=== PATIENT | female | born 1945 | race Caucasian/White ===

== ENCOUNTER 2021-12-27 17:50 | Inpatient (IN) | payer MEDICARE ==
--- NOTE | 2021-12-27 19:43 | ED ---
General Adult HPI - General Chief complaint: Fall Stated complaint: Fall Time Seen by Provider: 12/27/21 19:18 Source: patient Mode of arrival: ambulatory Limitations: no limitations - History of Present Illness Initial comments: Dictation was produced using [employer] dictation software. please excuse any grammatical, word or spelling errors. Chief Complaint: 76-year-old female presents to the emergency Department with weakness fall and 2 episodes of syncope. History of Present Illness: Isela is a 76-year-old obese female with multiple comorbidities presents to the emergency department after couple days of weakness. She had 2 episodes of syncope yesterday. She doesn't remember falling. She states she's been feeling very weak over the last 48 hours. Patient states that she did not feel any palpitations prior to the fall. Jennifer ent is supposed to be on anticoagulation for A. fib however she is noncompliant with recommendations made by her primary care physician because she is afraid of getting a retinal hemorrhage. She denies any chest pain. She has no shortness of breath. She is got some rug burn to her bilateral knees. Patient denies any headache. Denies any numbness distally paresthesias. It has been treated and evaluated for hyperkalemia in the past. The ROS documented in this emergency department record has been reviewed and confirmed by me. Those systems with pertinent positive or negative responses liang ve been documented in the HPI. All other systems are other negative and/or noncontributory. PHYSICAL EXAM: General Impression: Alert and oriented x3, not in acute distress HEENT: Normocephalic atraumatic, extra-ocular movements intact, pupils equal and reactive to light bilaterally, mucous membranes moist. Cardiovascular: Heart regular rate and rhythm Chest: Able to complete full sentences, no retractions, no tachypnea Abdomen: abdomen soft, non-tender, non-distended, no organomegaly Musculoskeletal: Pulses present and equal in all extremities, no peripheral edema Motor: no focal deficits noted Neurological: CN II-XII grossly intact, no focal motor or sensory deficits noted, NIH 0 Skin: Intact with no visualized rashes Psych: Normal affect and mood ED course: 76-year-old female presents to the emergency department for chief complaint of generalized weakness. Vital signs upon arrival are within acceptable limits. After evaluation obtained. CBC unremarkable. Metabolic panel is not yet available. Lactic acidosis 2.2. 4 panel viral PCR is negative. Coag panel is negative. Blood glucose was checked and found to be 33. Given dextrose push. Blood glucose was rechecked 15 minutes after glucose found to be 125. Metabolic panel is not yet available.Computed tomography scan of the head and C- spine shows no acute traumatic injuries. Chest x-ray is nonacute. Metabolic panel shows potassium 5.2. Elevated renal markers though not significantly worrisome. Patient's glucose on metabolic panels 36. Creatinine kinase 2056. Lactic acid is 2.2. Patient be admitted for hyperglycemia. She states that she has been taking her antidiabetic medications without having any significant meals or other day due to forgetfulness. Patient be admitted for blood glucose monitoring. EKG interpretation: Ventricular rate 82, A. fib, QS 89, QTc 434. No WI prolongation, no QTC prolongation, no ST or T-wave changes noted. Note EKG for comparison. Overall, this EKG is unremarkable - Related Data Home Medications Medication Instructions Recorded Confirmed Levothyroxine Sodium [Synthroid] 88 mcg PO DAILY 12/27/21 12/27/21 Losartan [Cozaar] 50 mg PO DAILY 12/27/21 12/27/21 glipiZIDE XL [Glucotrol Xl] 10 mg PO DAILY 12/27/21 12/27/21 Previous Rx's Medication Instructions Recorded levETIRAcetam [Keppra] 500 mg PO Q12HR tab 07/29/15 metFORMIN HCL [Glucophage] 500 mg PO BID-W/MEALS tab 07/29/15 Allergies Allergy/AdvReac Type Severity Reaction Status Date / Time Penicillins Allergy Itching Verified 12/27/21 20:17 Sulfa (Sulfonamide Allergy Unknown Verified 12/27/21 20:17 Antibiotics) codeine AdvReac Unknown Verified 12/27/21 20:17 all antibiotics Allergy Rash/Hives Uncoded 12/27/21 17:58 Review of Systems ROS Statement: Those systems with pertinent positive or pertinent negative responses have been documented in the HPI. ROS Other: All systems not noted in ROS Statement are negative. Past Medical History Past Medical History: Atrial Fibrillation, Diabetes Mellitus, Hyperlipidemia, Hypertension, Sleep Apnea/CPAP/BIPAP History of Any Multi-Drug Resistant Organisms: None Reported Additional Past Surgical History / Comment(s): cataract, eye surgeries, D&C, ankle surgery to repair fracture,retinal Hemorrhage surgeries in both eyes,colonoscopy. Past Anesthesia/Blood Transfusion Reactions: No Reported Reaction, Motion Sickness Past Psychological History: No Psychological Hx Reported, Depression Smoking Status: Never smoker Past Alcohol Use History: Rare Past Drug Use History: None Reported - Past Family History Mother Family Medical History: Vascular Disorder (Mothere at the age of 82 from AAA.) Father Family Medical History: Cancer (Father at the age of 66 from lung cancer.) General Exam Limitations: no limitations Course Vital Signs 12/27/21 12/27/21 12/27/21 17:55 20:13 22:27 Temperature 98.5 F Pulse Rate 60 64 68 Respiratory 20 18 18 Rate Blood Pressure 188/50 135/68 122/67 O2 Sat by Pulse 97 98 98 Oximetry Medical Decision Making - Lab Data Result diagrams: 12/27/21 20:07 12/27/21 21:29 Lab Results 12/27/21 12/27/21 12/27/21 Range/Units 20:07 20:07 20:07 WBC 9.4 (3.8-10.6) k/uL RBC 4.88 (3.80-5.40) m/uL Hgb 13.2 (11.4-16.0) gm/dL Hct 42.0 (34.0-46.0) % MCV 86.1 (80.0-100.0) fL MCH 27.1 (25.0-35.0) pg MCHC 31.5 (31.0-37.0) g/dL RDW 14.2 (11.5-15.5) % Plt Count 255 (150-450) k/uL MPV 8.1 Neutrophils % 76 % Lymphocytes % 14 % Monocytes % 7 % Eosinophils % 1 % Basophils % 1 % Neutrophils # 7.1 (1.3-7.7) k/uL Lymphocytes # 1.3 (1.0-4.8) k/uL Monocytes # 0.7 (0-1.0) k/uL Eosinophils # 0.1 (0-0.7) k/uL Basophils # 0.1 (0-0.2) k/uL PT (9.0-12.0) sec INR (<1.2) APTT (22.0-30.0) sec Sodium (137-145) mmol/L Potassium (3.5-5.1) mmol/L Chloride (98-107) mmol/L Carbon Dioxide (22-30) mmol/L Anion Gap mmol/L BUN (7-17) mg/dL Creatinine (0.52-1.04) mg/dL Est GFR (CKD-EPI)AfAm (>60 ml/min/1.73 sqM) Est GFR (CKD-EPI)NonAf (>60 ml/min/1.73 sqM) Glucose (74-99) mg/dL POC Glucose (mg/dL) (75-99) mg/dL POC Glu [facility] ID Plasma Lactic Acid Kulwant 1.4 (0.7-2.0) mmol/L Calcium (8.4-10.2) mg/dL Magnesium (1.6-2.3) mg/dL Creatine Kinase (30-135) U/L Influenza Type A (PCR) Not Detected (Not Detectd) Influenza Type B (PCR) Not Detected (Not Detectd) RSV (PCR) Not Detected (Not Detectd) SARS-CoV-2 (PCR) Not Detected (Not Detectd) Blood Type Blood Type Confirm Blood Type Recheck Bld Type Recheck Status Antibody Screen Spec Expiration Date 12/27/21 12/27/21 12/27/21 Range/Units 20:35 20:45 20:50 WBC (3.8-10.6) k/uL RBC (3.80-5.40) m/uL Hgb (11.4-16.0) gm/dL Hct (34.0-46.0) % MCV (80.0-100.0) fL MCH (25.0-35.0) pg MCHC (31.0-37.0) g/dL RDW (11.5-15.5) % Plt Count (150-450) k/uL MPV Neutrophils % % Lymphocytes % % Monocytes % % Eosinophils % % Basophils % % Neutrophils # (1.3-7.7) k/uL Lymphocytes # (1.0-4.8) k/uL Monocytes # (0-1.0) k/uL Eosinophils # (0-0.7) k/uL Basophils # (0-0.2) k/uL PT (9.0-12.0) sec INR (<1.2) APTT (22.0-30.0) sec Sodium (137-145) mmol/L Potassium (3.5-5.1) mmol/L Chloride (98-107) mmol/L Carbon Dioxide (22-30) mmol/L Anion Gap mmol/L BUN (7-17) mg/dL Creatinine (0.52-1.04) mg/dL Est GFR (CKD-EPI)AfAm (>60 ml/min/1.73 sqM) Est GFR (CKD-EPI)NonAf (>60 ml/min/1.73 sqM) Glucose (74-99) mg/dL POC Glucose (mg/dL) (75-99) mg/dL POC Glu [facility] ID Plasma Lactic Acid Kulwant 2.2 H* (0.7-2.0) mmol/L Calcium (8.4-10.2) mg/dL Magnesium (1.6-2.3) mg/dL Creatine Kinase (30-135) U/L Influenza Type A (PCR) (Not Detectd) Influenza Type B (PCR) (Not Detectd) RSV (PCR) (Not Detectd) SARS-CoV-2 (PCR) (Not Detectd) Blood Type A Positive Blood Type Confirm Blood Type Recheck No Previous Record Bld Type Recheck Status CABO Indicated Antibody Screen NEGATIVE Spec Expiration Date 12/30/2021 - 234412/27/21 12/27/21 12/27/21 Range/Units 20:58 21:29 21:29 WBC (3.8-10.6) k/uL RBC (3.80-5.40) m/uL Hgb (11.4-16.0) gm/dL Hct (34.0-46.0) % MCV (80.0-100.0) fL MCH (25.0-35.0) pg MCHC (31.0-37.0) g/dL RDW (11.5-15.5) % Plt Count (150-450) k/uL MPV Neutrophils % % Lymphocytes % % Monocytes % % Eosinophils % % Basophils % % Neutrophils # (1.3-7.7) k/uL Lymphocytes # (1.0-4.8) k/uL Monocytes # (0-1.0) k/uL Eosinophils # (0-0.7) k/uL Basophils # (0-0.2) k/uL PT 11.8 (9.0-12.0) sec INR 1.1 (<1.2) APTT 23.8 (22.0-30.0) sec Sodium 137 (137-145) mmol/L Potassium 5.2 H (3.5-5.1) mmol/L Chloride 104 (98-107) mmol/L Carbon Dioxide 25 (22-30) mmol/L Anion Gap 8 mmol/L BUN 34 H (7-17) mg/dL Creatinine 1.36 H (0.52-1.04) mg/dL Est GFR (CKD-EPI)AfAm 44 (>60 ml/min/1.73 sqM) Est GFR (CKD-EPI)NonAf 38 (>60 ml/min/1.73 sqM) Glucose 36 L* (74-99) mg/dL POC Glucose (mg/dL) (75-99) mg/dL POC Glu [facility] ID Plasma Lactic Acid Kulwant (0.7-2.0) mmol/L Calcium 9.5 (8.4-10.2) mg/dL Magnesium 1.6 (1.6-2.3) mg/dL Creatine Kinase 2256 H* (30-135) U/L Influenza Type A (PCR) (Not Detectd) Influenza Type B (PCR) (Not Detectd) RSV (PCR) (Not Detectd) SARS-CoV-2 (PCR) (Not Detectd) Blood Type Blood Type Confirm A Positive Blood Type Recheck Bld Type Recheck Status Antibody Screen Spec Expiration Date 12/27/21 12/27/21 Range/Units 22:12 22:26 WBC (3.8-10.6) k/uL RBC (3.80-5.40) m/uL Hgb (11.4-16.0) gm/dL Hct (34.0-46.0) % MCV (80.0-100.0) fL MCH (25.0-35.0) pg MCHC (31.0-37.0) g/dL RDW (11.5-15.5) % Plt Count (150-450) k/uL MPV Neutrophils % % Lymphocytes % % Monocytes % % Eosinophils % % Basophils % % Neutrophils # (1.3-7.7) k/uL Lymphocytes # (1.0-4.8) k/uL Monocytes # (0-1.0) k/uL Eosinophils # (0-0.7) k/uL Basophils # (0-0.2) k/uL PT (9.0-12.0) sec INR (<1.2) APTT (22.0-30.0) sec Sodium (137-145) mmol/L Potassium (3.5-5.1) mmol/L Chloride (98-107) mmol/L Carbon Dioxide (22-30) mmol/L Anion Gap mmol/L BUN (7-17) mg/dL Creatinine (0.52-1.04) mg/dL Est GFR (CKD-EPI)AfAm (>60 ml/min/1.73 sqM) Est GFR (CKD-EPI)NonAf (>60 ml/min/1.73 sqM) Glucose (74-99) mg/dL POC Glucose (mg/dL) 33 L 125 H (75-99) mg/dL POC Glu [facility] Harsh Lee John Plasma Lactic Acid Kulwant (0.7-2.0) mmol/L Calcium (8.4-10.2) mg/dL Magnesium (1.6-2.3) mg/dL Creatine Kinase (30-135) U/L Influenza Type A (PCR) (Not Detectd) Influenza Type B (PCR) (Not Detectd) RSV (PCR) (Not Detectd) SARS-CoV-2 (PCR) (Not Detectd) Blood Type Blood Type Confirm Blood Type Recheck Bld Type Recheck Status Antibody Screen Spec Expiration Date Disposition Clinical Impression: Hypoglycemia Disposition: ADMITTED IP TO THIS HOSP Condition: Serious Referrals: Danita Yarbrough MD [Primary Care Provider] - 1-2 days Decision Time: 22:38
[2021-12-27 20:42] LABS: Basophils # (A) 0.1 k/uL (0-0.2); Basophils % (A) 1 %; Eosinophils # (A) 0.1 k/uL (0-0.7); Eosinophils % (A) 1 %; HGB 13.2 gm/dL (11.4-16.0); Lymphocytes # (A) 1.3 k/uL (1.0-4.8); Lymphocytes % (A) 14 %; MCH 27.1 pg (25.0-35.0); MCHC 31.5 g/dL (31.0-37.0); MCV 86.1 fL (80.0-100.0); Mean Platelet Volume 8.1; Monocytes # (A) 0.7 k/uL (0-1.0); Monocytes % (A) 7 %; Neutrophils # (A) 7.1 k/uL (1.3-7.7); Neutrophils % (A) 76 %; Platelet Count 255 k/uL (150-450); RBC 4.88 m/uL (3.80-5.40); RDW 14.2 % (11.5-15.5); WBC 9.4 k/uL (3.8-10.6)
--- NOTE | 2021-12-27 21:05 | XR ---
EXAMINATION TYPE: XR chest 1V portable DATE OF EXAM: 12/27/2021 COMPARISON: 07/26/2015 HISTORY: Fall. Weakness TECHNIQUE: Single view FINDINGS: There is no heart failure nor confluent pneumonic infiltrate. Costophrenic angles are clear . Bony thorax is intact. There are no hilar masses. IMPRESSION: No active cardiopulmonary disease. No change.
--- NOTE | 2021-12-27 21:13 | CT ---
EXAMINATION TYPE: CT brain zenia wo con DATE OF EXAM: 12/27/2021 COMPARISON: 07/26/2015 HISTORY: Fall. CT DLP: 1574 mGycm Automated exposure control for dose reduction was used. Images of the brain and cervical spine obtained without contrast. There is cerebral cortical atrophy. There is no mass effect or midline shift. There is no evidence of intracranial hemorrhage. Calvarium is intact. The skull base is intact. There are mucous retention c ysts in the posterior maxillary sinuses. The cervical vertebra have normal alignment. There is degenerative disc space narrowing at C5-6 and C 6-7 with spur formation. No compression fracture. Facet joints are intact. IMPRESSION: Cerebral atrophy. No acute intracranial abnormality. No change. Spondylotic changes in the lower cervical spine. No fracture. No change compared to old exam.
[2021-12-27 22:04] LABS: INR 1.1 (<1.2); Partial Thromboplastin Time 23.8 sec (22.0-30.0); Prothrombin Time 11.8 sec (9.0-12.0)
[2021-12-27 22:05] LABS: Calcium 9.5 mg/dL (8.4-10.2); Magnesium 1.6 mg/dL (1.6-2.3); Potassium 5.2 mmol/L (3.5-5.1)
[2021-12-27] MEDS ORDERED: DEXTROSE 50% SYRINGE 50 ML IVP STA ×2 (22:15→22:23)
[2021-12-27 22:18] LABS: Glucose,Whole Blood 33 mg/dL (75-99)
[2021-12-27 22:28] LABS: Glucose,Whole Blood 125 mg/dL (75-99)
[2021-12-27] MEDS ORDERED: NALOXONE 0.4 MG/ML 1 ML VIAL IV PRN (22:30)
[2021-12-28] MEDS: SODIUM CHLORIDE 0.9% 1,000 ML IV SCH (00:11)
[2021-12-28 00:23] LABS: Appearance,Urine Cloudy (Clear); Bacteria,Urine Rare /hpf; Bilirubin,Urine Negative (Negative); Blood,Urine Large (Negative); Color,Urine Yellow; Glucose,Urine (UA) Trace (Negative); Ketones,Urine Negative (Negative); Leukocyte Esterase,Urine Large (Negative); Mucus,Urine Rare /hpf; Nitrite,Urine Negative (Negative); Protein,Urine 1+ (Negative); RBC,Urine >182 /hpf (0-5); Specific Gravity,Urine 1.026 (1.001-1.035); Squamous Epithelial Cell,Urine 1 /hpf (0-4); Urobilinogen,Urine <2.0 mg/dL (<2.0); WBC,Urine 178 /hpf (0-5)
[2021-12-28 06:50] LABS: Glucose,Whole Blood 37 mg/dL (75-99)
[2021-12-28 07:16] LABS: Glucose,Whole Blood 40 mg/dL (75-99)
[2021-12-28 07:16] LABS: Glucose,Whole Blood 41 mg/dL (75-99)
[2021-12-28 07:27] LABS: Glucose,Whole Blood 88 mg/dL (75-99)
[2021-12-28 09:14] LABS: Glucose,Whole Blood 151 mg/dL (75-99)
[2021-12-28 11:25] LABS: Glucose,Whole Blood 90 mg/dL (75-99)
[2021-12-28] MEDS: levETIRAcetam 500 MG TAB PO SCH ×2 (13:13→21:05)
[2021-12-28] MEDS: ACETAMINOPHEN TAB 500 MG TAB PO PRN (13:13)
--- NOTE | 2021-12-28 14:03 | P.HPIM ---
History of Present Illness H&P Date: 12/28/21 Chief Complaint: Syncope Patient is a 76-year-old female with a known history of diabetes type 2 non insulin-dependent, atrial fibrillation not on any anticoagulation, hypertension, hyperlipidemia, obstructive sleep apnea, history of cataracts, diabetic retinal hemorrhage, history of CVA and seizure disorder presents to ER due to not feeling well and weakness. Patient has been having weakness and near syncopal episodes yesterday. Denied any palpitations or chest pain prior to fall. No recent seizures. Patient has been taking medications regularly. No recent illnesses. No cough or sputum production. No fever no chills. On December 07 patient was found to be having atrial fibrillation and was started on anticoagulation with Eliquis. Patient did take 3 doses and let us stop taking anticoagulation because she is afraid of getting routine hemorrhage again. Patient was not seen by cardiology. Patient is also having leg swelling for the past few months. Denied any numbness or tingling. Chest x-ray showed no acute cardiopulmonary disease. No change. CT head and cervical spine showed cerebral atrophy. No acute intracranial abnormality. No change. Spondylitic changes in the lower cervical spine. No fracture. No change compared to old exam. EKG showed atrial fibrillation with aberrant conduction or ventricular premature complexes. Laboratory data showed WBC 9.4 hemoglobin 13.1 platelets 255 Sodium 137 potassium 5.2 chloride 104 bicarb is 25 BUN 34 and creatinine 1.36 and blood sugar was 36 on admission. Lactic acid 2.2 and CK2 256. Influenza PCR and COVID-19 PCR not detected. Review of Systems Constitutional: Patient denies any fever or chills . Generalized weakness and not feeling well.. Abdomen: Patient denied nausea vomiting and diarrhea and abdominal pain. No palpitations. Patient does have leg swelling. Cardiovascular: Patient denies any chest pain or short of breath no palpitations . Respiratory: patient denied any cough is from production. No shortness of breath Neurologic: Patient denied any numbness or tingling headache. Musculoskeletal: Patient denies any complaints of joint swelling or deformity. Skin: Negative Psychiatric: Negative Endocrine: No heat or cold intolerance. No recent weight gain. Genitourinary: No dysuria or hematuria. All other 14 point ROS negative except the above Past Medical History Past Medical History: Atrial Fibrillation, Diabetes Mellitus, Hyperlipidemia, Hypertension, Sleep Apnea/CPAP/BIPAP History of Any Multi-Drug Resistant Organisms: None Reported Additional Past Surgical History / Comment(s): cataract, eye surgeries, D&C, ankle surgery to repair fracture,retinal Hemorrhage surgeries in both eyes,colonoscopy. Past Anesthesia/Blood Transfusion Reactions: No Reported Reaction, Motion Sickness Past Psychological History: No Psychological Hx Reported, Depression Smoking Status: Never smoker Past Alcohol Use History: Rare Past Drug Use History: None Reported - Past Family History Mother Family Medical History: Vascular Disorder Father Family Medical History: Cancer Medications and Allergies Home Medications Medication Instructions Recorded Confirmed Type levETIRAcetam [Keppra] 500 mg PO Q12HR tab 07/29/15 12/27/21 Rx metFORMIN HCL [Glucophage] 500 mg PO BID-W/MEALS tab 07/29/15 12/27/21 Rx Levothyroxine Sodium [Synthroid] 88 mcg PO DAILY 12/27/21 12/27/21 History Losartan [Cozaar] 50 mg PO DAILY 12/27/21 12/27/21 History glipiZIDE XL [Glucotrol Xl] 10 mg PO DAILY 12/27/21 12/27/21 History Allergies Allergy/AdvReac Type Severity Reaction Status Date / Time Penicillins Allergy Itching Verified 12/27/21 20:17 Sulfa (Sulfonamide Allergy Unknown Verified 12/27/21 20:17 Antibiotics) codeine AdvReac Unknown Verified 12/27/21 20:17 all antibiotics Allergy Rash/Hives Uncoded 12/27/21 17:58 Physical Exam Vitals: Vital Signs Temp Pulse Pulse Resp BP BP Pulse Ox 12/28/21 08:00 97.9 F 56 L 17 123/57 96 12/27/21 23:50 99.2 F 60 16 149/69 98 12/27/21 22:27 68 18 122/67 98 12/27/21 20:13 64 18 135/68 98 12/27/21 17:55 98.5 F 60 20 188/50 97 Intake and Output 12/27/21 12/28/21 12/28/21 22:59 06:59 14:59 Output Total 100 Balance -100 Output: Urine 100 Other: Voiding Method Bedside Commode Weight 113.398 kg 113.398 kg PHYSICAL EXAMINATION: Patient is lying in the bed comfortably, no acute distress, awake alert and oriented. Morbidly obese.. HEENT: Normocephalic. Neck is supple. Pupils reactive. Nostrils clear. Oral cavity is moist. Neck reveals no JVD, carotid bruits, or thyromegaly. CHEST EXAMINATION: Trachea is central. Symmetrical expansion. Lung medeiros clear to auscultation and percussion. CARDIAC: Normal S1, S2 with no gallops. No murmurs , irregularly irregular rhythm. ABDOMEN: Soft. Bowel sounds normal. No organomegaly. No abdominal bruits. Extremities: 2+ pedal edema. No clubbing or cyanosis Neurologically awake, alert, oriented x3 with well-coordinated movements. No focal deficits noted Skin: No rash or skin lesions. Psychiatric: Coperative. Nonsuicidal Musculoskeletal: No joint swelling or deformity. Normal range of motion. Results CBC & Chem 7: 12/27/21 20:07 12/27/21 21:29 Labs: Abnormal Lab Results - Last 24 Hours (Table) 12/27/21 12/27/21 12/27/21 Range/Units 20:35 21:29 22:12 Potassium 5.2 H (3.5-5.1) mmol/L BUN 34 H (7-17) mg/dL Creatinine 1.36 H (0.52-1.04) mg/dL Glucose 36 L* (74-99) mg/dL POC Glucose (mg/dL) 33 L (75-99) mg/dL Plasma Lactic Acid Kulwant 2.2 H* (0.7-2.0) mmol/L Creatine Kinase 2256 H* (30-135) U/L Urine Appearance (Clear) Urine Protein (Negative) Urine Glucose (UA) (Negative) Urine Blood (Negative) Ur Leukocyte Esterase (Negative) Urine RBC (0-5) /hpf Urine WBC (0-5) /hpf Urine WBC Clumps (None) /hpf Urine Bacteria (None) /hpf Urine Mucus (None) /hpf 12/27/21 12/28/21 12/28/21 Range/Units 22:26 00:01 06:48 Potassium (3.5-5.1) mmol/L BUN (7-17) mg/dL Creatinine (0.52-1.04) mg/dL Glucose (74-99) mg/dL POC Glucose (mg/dL) 125 H 37 L (75-99) mg/dL Plasma Lactic Acid Kulwant (0.7-2.0) mmol/L Creatine Kinase (30-135) U/L Urine Appearance Cloudy H (Clear) Urine Protein 1+ H (Negative) Urine Glucose (UA) Trace H (Negative) Urine Blood Large H (Negative) Ur Leukocyte Esterase Large H (Negative) Urine RBC >182 H (0-5) /hpf Urine WBC 178 H (0-5) /hpf Urine WBC Clumps Few H (None) /hpf Urine Bacteria Rare H (None) /hpf Urine Mucus Rare H (None) /hpf 12/28/21 12/28/21 12/28/21 Range/Units 06:50 07:06 09:12 Potassium (3.5-5.1) mmol/L BUN (7-17) mg/dL Creatinine (0.52-1.04) mg/dL Glucose (74-99) mg/dL POC Glucose (mg/dL) 41 L 40 L 151 H (75-99) mg/dL Plasma Lactic Acid Kulwant (0.7-2.0) mmol/L Creatine Kinase (30-135) U/L Urine Appearance (Clear) Urine Protein (Negative) Urine Glucose (UA) (Negative) Urine Blood (Negative) Ur Leukocyte Esterase (Negative) Urine RBC (0-5) /hpf Urine WBC (0-5) /hpf Urine WBC Clumps (None) /hpf Urine Bacteria (None) /hpf Urine Mucus (None) /hpf Microbiology - Last 24 Hours (Table) 12/28/21 00:01 Urine Culture - Preliminary Urine,Voided Thrombosis Risk Factor Assmnt - DVT/VTE Prophylaxis DVT/VTE Prophylaxis: Pharmacologic Prophylaxis ordered - Choose All That Apply Each Factor Represents 1 point: Obesity (BMI >25), Swollen legs (current) Each Risk Factor Represents 3 Points: Age 75 years or older Thrombosis Risk Factor Assessment Total Risk Factor Score: 5 Thrombosis Risk Factor Assessment Level: High Risk Assessment and Plan Assessment: Altered mental status likely due to hypoglycemia. Near syncopal episode acute rhabdomyolysis. CPK 2256 on admission. possible UTI Chronic atrial fibrillation. Rate controlled. Not on any anticoagulation. Patient refused to take medication and is concerned due to previous retinal hemorrhage. Hypertension Diabetes type 2 [id number]. On metformin and glipizide. Hyperlipidemia Obstructive sleep apnea Morbid obesity BMI 45.7 Prior history of seizure disorder Hypothyroidism DVT prophylaxis with heparin subcu Plan: Patient was given D50 and continue with oral intake. Glipizide and metformin is on hold currently. Monitor blood sugar closely. Patient does have chronic atrial fibrillation and was diagnosed recently. Due to bilateral leg swelling, 2D echocardiogram will be ordered and cardiology consult. Continue with home medications including Keppra and levothyroxine. We will check TSH level and proBNP. Continue to follow closely. Time with Patient: Greater than 30
[2021-12-28 17:09] LABS: Glucose,Whole Blood 117 mg/dL (75-99)
[2021-12-28 20:43] LABS: Glucose,Whole Blood 162 mg/dL (75-99)
[2021-12-28] MEDS: HEPARIN SODIUM,PORCINE/PF 5,000 UNIT/0.5 ML SYRINGE SQ SCH (21:04)
[2021-12-28] MEDS ORDERED: DOPamine DRIP 800 MG in DEXTROSE/WATER 1 250ML.BAG IV SCH (23:45)
[2021-12-29] MEDS: SODIUM CHLORIDE 0.9% 1,000 ML IV SCH ×3 (00:24→21:11)
[2021-12-29] MEDS: LEVOTHYROXINE 88 MCG TAB PO SCH (06:01)
[2021-12-29 06:06] LABS: Glucose,Whole Blood 112 mg/dL (75-99)
[2021-12-29] MEDS: HEPARIN SODIUM,PORCINE/PF 5,000 UNIT/0.5 ML SYRINGE SQ SCH ×2 (09:35→21:11)
[2021-12-29] MEDS: levETIRAcetam 500 MG TAB PO SCH ×2 (09:36→21:10)
[2021-12-29] MEDS ORDERED: SODIUM CHLORIDE 0.9% 1,000 ML IV SCH (10:00)
--- NOTE | 2021-12-29 10:00 | ECHOF ---
Referral Reason:leg swelling MEASUREMENTS -------- HEIGHT: 154.9 cm WEIGHT: 108.9 kg BP: RVIDd: 3.3 cm (< 3.3) IVSd: 1.2 cm (0.6 - 1.1) LVIDd: 4.4 cm (3.9 - 5.3) LVPWd: 1.3 cm (0.6 - 1.1) IVSs: 1.8 cm LVIDs: 2.9 cm LVPWs: 2.2 cm LA Diam: 4.1 cm (2.7 - 3.8) LAESV Index (A-L): 34.37 ml/m Ao Diam: 2.8 cm (2.0 - 3.7) AV Cusp: 1.6 cm (1.5 - 2.6) MV EXCURSION: 14.577 mm (> 18.000) MV EF SLOPE: 131 mm/s (70 - 150) EPSS: 1.0 cm RAP: 5.00 mmHg RVSP: 41.24 mmHg FINDINGS -------- Atrial fibrillation. This was a technically adequate study. The left ventricular size is normal. There is mild concentric left ventricular hypertrophy. Overa ll left ventricular systolic function is mildly impaired with, an EF between 45 - 50 %. The right ventricle is mildly enlarged. LA is moderately dilated 34-39 ml/m2 The right atrium is normal in size. Interatrial and interventricular septum intact. Aortic valve is trileaflet and is mildly thickened. The mitral valve leaflets are mildly thickened. Mild mitral annular calcification present. Mild m itral regurgitation is present. Mild tricuspid regurgitation present. There is mild pulmonary hypertension. The right ventricular systolic pressure, as measured by Doppler, is 41.24mmHg. Trace/mild (physiologic) pulmonic regurgitation. The aortic root size is normal. Normal inferior vena cava with normal inspiratory collapse consistent with estimated right atrial pre ssure of 5 mmHg. There is no pericardial effusion. CONCLUSIONS -------- 1. The left ventricular size is normal. 2. There is mild concentric left ventricular hypertrophy. 3. Overall left ventricular systolic function is mildly impaired with, an EF between 45 - 50 %. 4. The right ventricle is mildly enlarged. 5. LA is moderately dilated 34-39 ml/m2 6. Aortic valve is trileaflet and is mildly thickened. 7. The mitral valve leaflets are mildly thickened. 8. Mild mitral annular calcification present. 9. Mild mitral regurgitation is present. 10. Mild tricuspid regurgitation present. 11. There is mild pulmonary hypertension. 12. The right ventricular systolic pressure, as measured by Doppler, is 41.24mmHg. 13. Trace/mild (physiologic) pulmonic regurgitation. 14. There is no pericardial effusion. SATELLITE INSTRUCTION FACILITATOR: Sully Arauz RDCS
[2021-12-29 11:34] LABS: Basophils # (A) 0.1 k/uL (0-0.2); Basophils % (A) 1 %; Eosinophils # (A) 0.2 k/uL (0-0.7); Eosinophils % (A) 2 %; HCT 43.8 % (34.0-46.0); HGB 13.2 gm/dL (11.4-16.0); Hypochromasia Slight; Lymphocytes # (A) 1.2 k/uL (1.0-4.8); Lymphocytes % (A) 14 %; MCH 26.3 pg (25.0-35.0); MCHC 30.1 g/dL (31.0-37.0); MCV 87.6 fL (80.0-100.0); Mean Platelet Volume 7.4; Monocytes # (A) 0.6 k/uL (0-1.0); Monocytes % (A) 7 %; Neutrophils # (A) 6.3 k/uL (1.3-7.7); Neutrophils % (A) 74 %; Platelet Count 252 k/uL (150-450); RDW 14.1 % (11.5-15.5); WBC 8.5 k/uL (3.8-10.6)
[2021-12-29 11:44] LABS: African American GFR (CKD) 49 (>60 ml/min/1.73 sqM); Anion Gap 4 mmol/L; Blood Urea Nitrogen 21 mg/dL (7-17); Calcium 9.2 mg/dL (8.4-10.2); Carbon Dioxide 29 mmol/L (22-30); Chloride 103 mmol/L (98-107); Glucose 152 mg/dL (74-99); Non-African American GFR(CKD) 43 (>60 ml/min/1.73 sqM); Potassium 5.5 mmol/L (3.5-5.1); Sodium 136 mmol/L (137-145)
[2021-12-29 12:05] LABS: Glucose,Whole Blood 138 mg/dL (75-99)
--- NOTE | 2021-12-29 13:31 | P.CRDCN ---
History of Present Illness Consult date: 12/29/21 History of present illness: HISTORY OF PRESENT ILLNESS: This is a 76-year-old female with a past medical history significant for persistent atrial fibrillation, hypothyroidism, retinal hemorrhage, hypertension, diabetes and obstructive sleep apnea. Patient does not follow with a financial services sales representative. We have been asked to see the patient in consultation for atrial fibrillation. Patient examined at the bedside. Patient states she was first diagnosed with atrial fibrillation earlier this year by her PCP. She was referred to a financial services sales representative but she states she never saw a financial services sales representative. She was started on Eliquis but states she began having blood in her urine so she stopped taking it. She also reports a history of retinal hemorrhage show she states that she has not taken her Eliquis. the patient presented to the hospital with a chief complaint of weakness. She states she has been feeling weak for the past few weeks. She states this past weekend she thought she was possibly having a mini stroke and had a couple episodes where she felt disoriented and had some slurred speech. She also reports falling twice at home and believes that she lost consciousness. She denies having any chest pain or pressure. She denies any shortness of breath. Overnight, the patient was found to be bradycardic and having pauses on telemetry. She also had a few runs of V-Tach. She was started on IV Dopamine. According to telemetry review, she began having more frequent runs of VT after her dopamine was initiated. * EKG reveals atrial fibrillation with controlled ventricular rate * Chest xray no active cardiopulmonary disease * Laboratory data: WBC 8.5. Hemoglobin 13.2. Platelet count 252. Sodium 136. Potassium 5.5. BUN 21. Creatinine 1.23. TSH 2.410. * Current home cardiac medications include losartan 50 mg daily * Echocardiogram completed revealing ejection fraction 45-50%, mild MR, mild TR, and mild pulmonary hypertension REVIEW OF SYSTEMS: At the time of my exam: CONSTITUTIONAL: Denies fever or chills. HEENT: Denies blurred vision, vision changes, or eye pain. Denies hemoptysis CARDIOVASCULAR: Denies chest pain. Denies orthopnea. Denies PND. Denies palpitations RESPIRATORY: Denies shortness of breath. GASTROINTESTINAL: Denies abdominal pain. Denies nausea or vomiting. HEMATOLOGIC: Denies bleeding disorders. GENITOURINARY: Denies any blood in urine. SKIN: Denies pruitis. Denies rash. PHYSICAL EXAM: VITAL SIGNS: Reviewed. GENERAL: Well-developed in no acute distress. HEENT: Head is normocephalic. Pupils are equal, round. Sclerae anicteric. Mucous membranes of the mouth are moist. Neck supple. No JVD or thyromegaly LUNGS: Respirations even and unlabored. Lungs essentially clear to auscultation bilaterally. HEART: Irregular rate and rhythm. S1 and S2 heard. ABDOMEN: Soft. Nondistended. Nontender. EXTREMITIES: Normal range of motion. No clubbing or cyanosis. Peripheral pulses intact. No lower extremity edema NEUROLOGIC: Awake and alert. Oriented x 3. ASSESSMENT: Syncope Persistent atrial fibrillation with bradycardia and pauses, declining to take oral anticoagulation Nonsustained ventricular tachycardia History of retinal hemorrhage Hypertension Diabetes Obstructive sleep apnea PLAN: Decrease Dopamine infusion to 1.25mcg/kg/min Continue telemetry monitoring Avoid any AV ifrah blocking agents NPO at midnight Patient to undergo PPM tomorrow with Dr. Nassar Further recommendations pending patient course Nurse practitioner note has been reviewed by physician. Signing provider agrees with the documented findings, assessment, and plan of care. Past Medical History Past Medical History: Atrial Fibrillation, Diabetes Mellitus, Hyperlipidemia, Hypertension, Sleep Apnea/CPAP/BIPAP History of Any Multi-Drug Resistant Organisms: None Reported Additional Past Surgical History / Comment(s): cataract, eye surgeries, D&C, ankle surgery to repair fracture,retinal Hemorrhage surgeries in both ey es,colonoscopy. Past Anesthesia/Blood Transfusion Reactions: No Reported Reaction, Motion Sickness Past Psychological History: No Psychological Hx Reported, Depression Smoking Status: Never smoker Past Alcohol Use History: Rare Past Drug Use History: None Reported - Past Family History Mother Family Medical History: Vascular Disorder Father Family Medical History: Cancer Medications and Allergies Home Medications Medication Instructions Recorded Confirmed Type levETIRAcetam [Keppra] 500 mg PO Q12HR tab 07/29/15 12/27/21 Rx metFORMIN HCL [Glucophage] 500 mg PO BID-W/MEALS tab 07/29/15 12/27/21 Rx Levothyroxine Sodium [Synthroid] 88 mcg PO DAILY 12/27/21 12/27/21 History Losartan [Cozaar] 50 mg PO DAILY 12/27/21 12/27/21 History glipiZIDE XL [Glucotrol Xl] 10 mg PO DAILY 12/27/21 12/27/21 History Allergies Allergy/AdvReac Type Severity Reaction Status Date / Time Penicillins Allergy Itching Verified 12/27/21 20:17 Sulfa (Sulfonamide Allergy Unknown Verified 12/27/21 20:17 Antibiotics) codeine AdvReac Unknown Verified 12/27/21 20:17 all antibiotics Allergy Rash/Hives Uncoded 12/27/21 17:58 Physical Exam Vitals: Vital Signs Temp Pulse Resp BP Pulse Ox 12/29/21 04:00 97.4 F L 77 16 164/85 94 L 12/29/21 01:32 97.0 F L 68 14 152/69 96 12/28/21 23:05 72 16 137/76 97 12/28/21 20:00 98.2 F 65 14 152/85 95 12/28/21 18:15 98.4 F 65 17 163/76 96 12/28/21 14:00 98.6 F 63 16 153/58 98 Intake and Output 12/28/21 12/29/21 12/29/21 22:59 06:59 14:59 Intake Total 240 240 Output Total 350 Balance 240 -110 Intake: IV 240 240 Sodium Chloride 0.9% 1, 240 240 000 ml @ 20 mls/hr IV . Q24H [facility] Rx#:[id number] Output: Urine 350 Other: Voiding Method Bedside Commode Bedside Commode # Voids 1 Weight 106 kg Results 12/29/21 11:01 12/29/21 11:01 Current Medications Generic Name Dose Route Start Last Admin Trade Name Freq PRN Reason Stop Dose Admin Acetaminophen 500 mg 12/28/21 12:39 12/28/21 13:13 Acetaminophen Tab 500 Mg Tab PO 500 mg Q8H PRN Administration Fever and/ or Pain Heparin Sodium (Porcine) 5,000 unit 12/28/21 21:00 12/29/21 09:35 Heparin Sodium,Porcine/Pf 5,000 Unit/0.5 Ml Syringe SQ Not Given Q12HR [facility] Sodium Chloride 1,000 mls @ 20 mls/hr 12/27/21 22:30 12/29/21 00:24 Saline 0.9% IV Not Given .Q24H [facility] Dopamine HCl/Dextrose 800 mg/ 250 mls @ 5.316 mls/hr 12/28/21 23:45 12/29/21 00:43 IV Solution IV 2.5 mcg/kg/min .Q24H [facility] 5.316 mls/hr Administration Protocol 2.5 MCG/KG/MIN Levetiracetam 500 mg 12/28/21 12:15 12/29/21 09:36 Levetiracetam 500 Mg Tab PO 500 mg Q12HR [facility] Administration Levothyroxine Sodium 88 mcg 12/29/21 06:30 12/29/21 06:01 Levothyroxine 88 Mcg Tab PO 88 mcg DAILY@0630 [facility] Administration Naloxone HCl 0.2 mg 12/27/21 22:30 Naloxone 0.4 Mg/Ml 1 Ml Vial IV Q2M PRN Opioid Reversal Intake and Output 12/28/21 12/29/21 12/29/21 22:59 06:59 14:59 Intake Total 240 240 Output Total 350 Balance 240 -110 Intake: IV 240 240 Sodium Chloride 0.9% 1, 240 240 000 ml @ 20 mls/hr IV . Q24H [facility] Rx#:[id number] Output: Urine 350 Other: Voiding Method Bedside Commode Bedside Commode # Voids 1 Weight 106 kg 12/27/21 20:07 12/27/21 21:29
[2021-12-29 16:43] LABS: Glucose,Whole Blood 171 mg/dL (75-99)
[2021-12-29 21:07] LABS: Glucose,Whole Blood 180 mg/dL (75-99)
[2021-12-29] MEDS: DOPamine DRIP 800 MG in DEXTROSE/WATER 1 250ML.BAG IV SCH (21:09)
[2021-12-30] MEDS: LEVOTHYROXINE 88 MCG TAB PO SCH (06:19)
[2021-12-30 06:27] LABS: Glucose,Whole Blood 116 mg/dL (75-99)
[2021-12-30] MEDS ORDERED: ceFAZolin 1 GM in SODIUM CHLORIDE 0.9% IRRIG BTL 250 ML IRRIGATION PRN (07:00)
[2021-12-30] MEDS: HEPARIN SODIUM,PORCINE/PF 5,000 UNIT/0.5 ML SYRINGE SQ SCH ×2 (07:50→23:35)
[2021-12-30 08:03] LABS: Basophils # (A) 0.1 k/uL (0-0.2); Basophils % (A) 1 %; Eosinophils # (A) 0.3 k/uL (0-0.7); Eosinophils % (A) 4 %; HCT 42.6 % (34.0-46.0); HGB 12.5 gm/dL (11.4-16.0); Hypochromasia Moderate; Lymphocytes # (A) 1.1 k/uL (1.0-4.8); Lymphocytes % (A) 16 %; MCH 26.3 pg (25.0-35.0); MCHC 29.4 g/dL (31.0-37.0); MCV 89.5 fL (80.0-100.0); Mean Platelet Volume 7.7; Monocytes # (A) 0.6 k/uL (0-1.0); Monocytes % (A) 8 %; Neutrophils # (A) 4.8 k/uL (1.3-7.7); Neutrophils % (A) 70 %; Platelet Count 223 k/uL (150-450); RBC 4.76 m/uL (3.80-5.40); RDW 14.1 % (11.5-15.5); WBC 6.9 k/uL (3.8-10.6)
[2021-12-30] MEDS: levETIRAcetam 500 MG TAB PO SCH ×2 (08:22→20:56)
[2021-12-30 08:51] LABS: Calcium 8.8 mg/dL (8.4-10.2); Potassium 4.6 mmol/L (3.5-5.1)
[2021-12-30] MEDS ORDERED: IOPAMIDOL-370 50ML BTL INJ ONE (09:35)
[2021-12-30] MEDS ORDERED: fentaNYL (PF) 50 MCG/ML 2 ML AMP ONE (09:38)
[2021-12-30] MEDS ORDERED: SODIUM CHLORIDE 0.9% 1,000 ML IV ONE (09:50)
[2021-12-30] MEDS: MIDAZOLAM 2 MG/2 ML VIAL IV ONE ×3 (09:55→11:35)
[2021-12-30] MEDS ORDERED: LIDOCAINE 1% INJ 10MG/ML (20 ML MDV) SQ ONE ×2 (10:13→10:22)
[2021-12-30] MEDS: fentaNYL (PF) 50 MCG/ML 2 ML AMP IV ONE ×2 (10:41→11:19)
[2021-12-30] MEDS ORDERED: ACETAMINOPHEN TAB 325 MG TAB PO PRN (11:48)
--- NOTE | 2021-12-30 11:57 | P.EPPROC ---
- EP Procedure Note Electrophysiology Procedure Note: Diagnosis Atrial fibrillation with bradycardia with syncope Severe pauses noted on telemetry Not on any rate control medications Treated with IV dopamine temporarily Procedure LB/ biventricular pacemaker implantation for symptomatic bradycardia Details Patient was brought to the EP lab in a fasting state. Written informed consent was obtained prior to the procedure. Conscious sedation provided by anesthesia team IV antibiotics administered. Local anesthesia administered. A 4 cm incision made in the pectoral area. Subfascial pocket made. Venous access obtained Venous sheaths placed. Leads placed in the right heart RV lead position in the RV apex. [employer] medical screw-in lead, 58 cm in length Lead positioned in the low RV septum just above the apex Excellent sensing. Pacing threshold 0.5 V at 0.5 ms Conduction system pacing His bundle mapped Unstable His bundle lead position Left bundle pacing performed. Leads screwed in the left fundal area Excellent threshold. Capture of the left bundle at 2 V at 1 ms with a QRS width of 127 ms, right bundle branch block pattern Higher outputs result in widening of the QRS with intermittent wide right bundle branch block pattern [employer] 3830-lead Biventricular pacemaker device connected to the leads and placed in the subfascial pocket Atrial port capped Patient tolerance the procedure well without acute complications Device programmed to VVI mode at 50 beats a minute with preferential LB pacing Output programmed at 2 V at 1 ms RV pacing 80 ms thereafter
--- NOTE | 2021-12-30 12:01 | P.PCN ---
Preoperative Diagnosis: Patient underwent EP procedure under conscious sedation/moderate sedation, monitoring of the level of consciousness and physiologic parameters including but not limited to vital signs and oxygenation. Patient tolerated the procedure well without any acute complications. Start time: 1012 Stop time: 1147
[2021-12-30 12:22] LABS: Glucose,Whole Blood 120 mg/dL (75-99)
[2021-12-30] MEDS: DOPamine DRIP 800 MG in DEXTROSE/WATER 1 250ML.BAG IV SCH (12:54)
--- NOTE | 2021-12-30 14:38 | XR ---
EXAMINATION TYPE: XR chest 1V portable DATE OF EXAM: 12/30/2021 COMPARISON: Chest x-ray 12/27/2021 HISTORY: Lead placement check TECHNIQUE: Single frontal view of the chest is obtained. FINDINGS: There is been interval placement of a generator in the left pectoral region, there are juancho ds in the right atrium and ventricle, right atrial lead is slightly upturned. Heart remains enlarged. Elevation of the right hemidiaphragm is again noted. Patient is rotated. Remote posttraumatic change s to the right clavicle are stable. No evident pneumothorax or pleural effusion. There are overlying leads. IMPRESSION: No evident complication status post pacemaker placement as described.
[2021-12-30 16:34] LABS: Glucose,Whole Blood 116 mg/dL (75-99)
[2021-12-30 20:13] LABS: Glucose,Whole Blood 163 mg/dL (75-99)
[2021-12-30] MEDS: LOSARTAN 50 MG TAB PO SCH (20:56)
--- NOTE | 2021-12-30 23:13 | P.PN ---
Subjective Progress Note Date: 12/29/21 Patient is a 76-year-old female with a known history of diabetes type 2 non insulin-dependent, atrial fibrillation not on any anticoagulation, hypertension, hyperlipidemia, obstructive sleep apnea, history of cataracts, diabetic retinal hemorrhage, history of CVA and seizure disorder presents to ER due to not feeling well and weakness. Patient has been having weakness and near syncopal episodes yesterday. Denied any palpitations or chest pain prior to fall. No recent seizures. Patient has been taking medications regularly. No recent illnesses. No cough or sputum production. No fever no chills. On December 07 patient was found to be having atrial fibrillation and was started on anticoagulation with Eliquis. Patient did take 3 doses and let us stop taking anticoagulation because she is afraid of getting routine hemorrhage again. Patient was not seen by cardiology. Patient is also having leg swelling for the past few months. Denied any numbness or tingling. Chest x-ray showed no acute cardiopulmonary disease. No change. CT head and cervical spine showed cerebral atrophy. No acute intracranial abnormality. No change. Spondylitic changes in the lower cervical spine. No fracture. No change compared to old exam. EKG showed atrial fibrillation with aberrant conduction or ventricular premature complexes. Laboratory data showed WBC 9.4 hemoglobin 13.1 platelets 255 Sodium 137 potassium 5.2 chloride 104 bicarb is 25 BUN 34 and creatinine 1.36 and blood sugar was 36 on admission. Lactic acid 2.2 and CK2 256. Influenza PCR and COVID-19 PCR not detected. 12/29/2021 Patient is currently awake alert and oriented x3. Patient was admitted to the hospital due to falls. EKG showed atrial fibrillation with controlled ventricular rate and bradycardia with pauses. Cardiology is recommending permanent pacemaker placement. Patient was also started on dobutamine. 2D echocardiogram showed ejection fraction 45 to 50%, mild MR and mild TR and mild pulmonary hypertension. Patient denied any complaints of chest pain or shortness of breath. Blood sugar is controlled. No hypoglycemic episodes. Laboratory showed sodium 136 potassium 5.5 chloride 103 BUN 21 and creatinine 1.23. Patient is being continued on IV hydration with 75 cc/h. Patient does not want to take anticoagulation. Current medications reviewed. Objective - Vital Signs Vital signs: Vital Signs Temp 98.3 F 12/29/21 11:49 Pulse 58 L 12/29/21 14:00 Resp 17 12/29/21 14:00 BP 159/79 12/29/21 11:49 Pulse Ox 98 12/29/21 11:49 Intake & Output 12/28/21 12/29/21 12/29/21 18:59 06:59 18:59 Intake Total 240 240 Output Total 350 Balance 240 -110 Weight 106 kg Intake: IV 240 240 Sodium Chloride 0.9% 1, 240 240 000 ml @ 20 mls/hr IV . Q24H [facility] Rx#:[id number] Output: Urine 350 Other: Voiding Method Bedside Commode Bedside Commode Bedside Commode Diaper # Voids 1 1 - Exam PHYSICAL EXAMINATION: Patient is lying in the bed comfortably, no acute distress, awake alert and oriented. Morbidly obese.. HEENT: Normocephalic. Neck is supple. Pupils reactive. Nostrils clear. Oral cavity is moist. Neck reveals no JVD, carotid bruits, or thyromegaly. CHEST EXAMINATION: Trachea is central. Symmetrical expansion. Lung medeiros clear to auscultation and percussion. CARDIAC: Normal S1, S2 with no gallops. No murmurs , irregularly irregular rhythm. ABDOMEN: Soft. Bowel sounds normal. No organomegaly. No abdominal bruits. Extremities: 2+ pedal edema. No clubbing or cyanosis Neurologically awake, alert, oriented x3 with well-coordinated movements. No focal deficits noted Skin: No rash or skin lesions. Psychiatric: Coperative. Nonsuicidal Musculoskeletal: No joint swelling or deformity. Normal range of motion. - Labs CBC & Chem 7: 12/30/21 07:11 12/30/21 07:11 Labs: Abnormal Lab Results - Last 24 Hours (Table) 12/28/21 12/28/21 12/29/21 Range/Units 17:06 20:41 06:04 MCHC (31.0-37.0) g/dL Sodium (137-145) mmol/L Potassium (3.5-5.1) mmol/L BUN (7-17) mg/dL Creatinine (0.52-1.04) mg/dL Glucose (74-99) mg/dL POC Glucose (mg/dL) 117 H 162 H 112 H (75-99) mg/dL 12/29/21 12/29/21 12/29/21 Range/Units 11:01 11:01 12:04 MCHC 30.1 L (31.0-37.0) g/dL Sodium 136 L (137-145) mmol/L Potassium 5.5 H (3.5-5.1) mmol/L BUN 21 H (7-17) mg/dL Creatinine 1.23 H (0.52-1.04) mg/dL Glucose 152 H (74-99) mg/dL POC Glucose (mg/dL) 138 H (75-99) mg/dL Microbiology - Last 24 Hours (Table) 12/28/21 00:01 Urine Culture - Final Urine,Voided Assessment and Plan Assessment: Altered mental status likely due to hypoglycemia. Acute syncopal episode acute rhabdomyolysis. CPK 2256 on admission. Chronic atrial fibrillation. Patient was found to have bradycardia and sinus pauses. Rate controlled. Not on any anticoagulation. Patient refused to take medication and is concerned due to previous retinal hemorrhage. Hypertension Diabetes type 2 [id number]. On metformin and glipizide. Hyperlipidemia Obstructive sleep apnea Morbid obesity BMI 45.7 Prior history of seizure disorder Hypothyroidism DVT prophylaxis with heparin subcu Plan: Patient will be continued on telemetry monitoring. Cardiology has seen the patient and patient was started on dobutamine due to bradycardia and sinus pauses. Recommending formal pacemaker placement likely tomorrow. Patient was given D50 and continue with oral intake. Glipizide and metformin is on hold currently. Monitor blood sugar closely. Continue with home medications including Keppra and levothyroxine. We will check TSH level and proBNP. Continue to follow closely. Time with Patient: Greater than 30
--- NOTE | 2021-12-30 23:15 | P.PN ---
Subjective Progress Note Date: 12/30/21 Patient is a 76-year-old female with a known history of diabetes type 2 non insulin-dependent, atrial fibrillation not on any anticoagulation, hypertension, hyperlipidemia, obstructive sleep apnea, history of cataracts, diabetic retinal hemorrhage, history of CVA and seizure disorder presents to ER due to not feeling well and weakness. Patient has been having weakness and near syncopal episodes yesterday. Denied any palpitations or chest pain prior to fall. No recent seizures. Patient has been taking medications regularly. No recent illnesses. No cough or sputum production. No fever no chills. On December 07 patient was found to be having atrial fibrillation and was started on anticoagulation with Eliquis. Patient did take 3 doses and let us stop taking anticoagulation because she is afraid of getting routine hemorrhage again. Patient was not seen by cardiology. Patient is also having leg swelling for the past few months. Denied any numbness or tingling. Chest x-ray showed no acute cardiopulmonary disease. No change. CT head and cervical spine showed cerebral atrophy. No acute intracranial abnormality. No change. Spondylitic changes in the lower cervical spine. No fracture. No change compared to old exam. EKG showed atrial fibrillation with aberrant conduction or ventricular premature complexes. Laboratory data showed WBC 9.4 hemoglobin 13.1 platelets 255 Sodium 137 potassium 5.2 chloride 104 bicarb is 25 BUN 34 and creatinine 1.36 and blood sugar was 36 on admission. Lactic acid 2.2 and CK2 256. Influenza PCR and COVID-19 PCR not detected. 12/29/2021 Patient is currently awake alert and oriented x3. Patient was admitted to the hospital due to falls. EKG showed atrial fibrillation with controlled ventricular rate and bradycardia with pauses. Cardiology is recommending permanent pacemaker placement. Patient was also started on dobutamine. 2D echocardiogram showed ejection fraction 45 to 50%, mild MR and mild TR and mild pulmonary hypertension. Patient denied any complaints of chest pain or shortness of breath. Blood sugar is controlled. No hypoglycemic episodes. Laboratory showed sodium 136 potassium 5.5 chloride 103 BUN 21 and creatinine 1.23. Patient is being continued on IV hydration with 75 cc/h. Patient does not want to take anticoagulation. 12/30/2021 Patient is currently resting in bed. Awake alert and oriented x3. Denies any complaints of dizziness or lightheadedness. Patient is status post PPM. Postoperative day 0. No complaints of chest pain. No nausea vomiting abdominal diarrhea. No headache or dizziness or lightheadedness. Tolerating oral diet. 's laboratory showed sodium 137 potassium 4.6 chloride 106 bicarb is 23 BUN 23 and creatinine 1.16. Patient is being continued on IV hydration with normal saline at 75 cc/h. Blood sugar is 128. Current medications reviewed. Objective - Vital Signs Vital signs: Vital Signs Temp 97.9 F 12/30/21 16:22 Pulse 64 12/30/21 16:22 Resp 18 12/30/21 16:22 BP 142/66 12/30/21 16:22 Pulse Ox 99 12/30/21 16:22 Intake & Output 12/30/21 12/30/21 12/31/21 06:59 18:59 06:59 Intake Total 1249.8 290 Balance 1249.8 290 Intake: IV 50 Intake, IV Titration 929.8 Amount DOPamine DRIP 800 mg In 29.8 Dextrose/Water 1 250ml. bag @ 1.25 MCG/KG/MIN 2. 484 mls/hr IV .Q24H [facility] Rx#:[id number] Sodium Chloride 0.9% 1, 900 000 ml @ 75 mls/hr IV . [id number] [facility] Rx#:[id number] Oral 320 240 Other: Voiding Method Bedside Commode Bedside Commode Diaper # Voids 2 1 - Exam PHYSICAL EXAMINATION: Patient is lying in the bed comfortably, no acute distress, awake alert and oriented. Morbidly obese.. HEENT: Normocephalic. Neck is supple. Pupils reactive. Nostrils clear. Oral cavity is moist. Neck reveals no JVD, carotid bruits, or thyromegaly. CHEST EXAMINATION: Trachea is central. Symmetrical expansion. Lung medeiros clear to auscultation and percussion. CARDIAC: Normal S1, S2 with no gallops. No murmurs , irregularly irregular rhythm. ABDOMEN: Soft. Bowel sounds normal. No organomegaly. No abdominal bruits. Extremities: 2+ pedal edema. No clubbing or cyanosis Neurologically awake, alert, oriented x3 with well-coordinated movements. No focal deficits noted Skin: No rash or skin lesions. Psychiatric: Coperative. Nonsuicidal Musculoskeletal: No joint swelling or deformity. Normal range of motion. - Labs CBC & Chem 7: 12/30/21 07:11 12/30/21 07:11 Labs: Abnormal Lab Results - Last 24 Hours (Table) 12/30/21 12/30/21 12/30/21 Range/Units 06:24 07:11 07:11 MCHC 29.4 L (31.0-37.0) g/dL BUN 23 H (7-17) mg/dL Creatinine 1.16 H (0.52-1.04) mg/dL Glucose 128 H (74-99) mg/dL POC Glucose (mg/dL) 116 H (75-99) mg/dL 12/30/21 12/30/21 12/30/21 Range/Units 12:20 16:33 20:12 MCHC (31.0-37.0) g/dL BUN (7-17) mg/dL Creatinine (0.52-1.04) mg/dL Glucose (74-99) mg/dL POC Glucose (mg/dL) 120 H 116 H 163 H (75-99) mg/dL Assessment and Plan Assessment: Altered mental status likely due to hypoglycemia. Acute syncopal episode acute rhabdomyolysis. CPK 2256 on admission. Chronic atrial fibrillation. Patient was found to have bradycardia and sinus pauses. Rate controlled. Not on any anticoagulation. Patient refused to take medication and is concerned due to previous retinal hemorrhage. Hypertension Diabetes type 2 [id number]. On metformin and glipizide. Hyperlipidemia Obstructive sleep apnea Morbid obesity BMI 45.7 Prior history of seizure disorder Hypothyroidism DVT prophylaxis with heparin subcu Plan: Patient will be continued on telemetry monitoring. Cardiology has seen the patient and patient was started on dobutamine due to bradycardia and sinus pauses. Recommending formal pacemaker placement likely tomorrow. Patient was given D50 and continue with oral intake. Glipizide and metformin is on hold currently. Monitor blood sugar closely. Continue with home medications including Keppra and levothyroxine. We will check TSH level and proBNP. Continue to follow closely. Time with Patient: Greater than 30
[2021-12-30] MEDS: ACETAMINOPHEN TAB 500 MG TAB PO PRN (23:36)
[2021-12-31] MEDS: SODIUM CHLORIDE 0.9% 1,000 ML IV SCH ×3 (01:09→23:08)
[2021-12-31 05:06] LABS: Glucose,Whole Blood 120 mg/dL (75-99)
[2021-12-31] MEDS: LEVOTHYROXINE 88 MCG TAB PO SCH (06:05)
[2021-12-31 08:02] LABS: Basophils % (A) 1 %; Eosinophils # (A) 0.3 k/uL (0-0.7); Eosinophils % (A) 4 %; HGB 12.6 gm/dL (11.4-16.0); Hypochromasia Slight; Lymphocytes # (A) 1.1 k/uL (1.0-4.8); Lymphocytes % (A) 16 %; MCH 27.4 pg (25.0-35.0); MCHC 31.4 g/dL (31.0-37.0); MCV 87.1 fL (80.0-100.0); Mean Platelet Volume 6.9; Monocytes # (A) 0.4 k/uL (0-1.0); Monocytes % (A) 6 %; Neutrophils # (A) 4.7 k/uL (1.3-7.7); Neutrophils % (A) 71 %; Platelet Count 236 k/uL (150-450); RDW 14.5 % (11.5-15.5); WBC 6.6 k/uL (3.8-10.6)
[2021-12-31] MEDS: levETIRAcetam 500 MG TAB PO SCH ×2 (08:35→20:18)
[2021-12-31] MEDS: HEPARIN SODIUM,PORCINE/PF 5,000 UNIT/0.5 ML SYRINGE SQ SCH ×2 (08:35→20:19)
[2021-12-31] MEDS: LOSARTAN 50 MG TAB PO SCH (08:35)
[2021-12-31] MEDS: ACETAMINOPHEN TAB 500 MG TAB PO PRN ×2 (08:36→20:18)
[2021-12-31 08:39] LABS: Calcium 8.6 mg/dL (8.4-10.2); Potassium 4.3 mmol/L (3.5-5.1)
[2021-12-31 11:41] LABS: Glucose,Whole Blood 147 mg/dL (75-99)
--- NOTE | 2021-12-31 12:45 | P.GSCN ---
History of Present Illness Consult date: 12/31/21 Reason for Consult: Difference between blood pressure in right arm versus left arm Requesting physician: Nathanael E Sheet History of present illness: This is a 76-year-old female who had presented to the emergency department on 12/27/2021 with complaints of weakness, syncope and falling. She has a past medical history including atrial fibrillation noncompliant with anticoagulation, diabetes mellitus, hyperlipidemia, hypertension, retinal hemorrhage, and sleep apnea. Patient was noted to have persistent atrial fibrillation with bradycardia and declining to take oral anticoagulation related to history of retinal hemorrhage. She has been followed by cardiology closely. She underwent biventricular pacemaker implantation on 12/30/[address] Nassar. Apparently the patient has had consistent elevated blood pressures in the right upper extremity versus left upper extremity. Vascular surgery was consulted for this reason. Patient denies any pain to her upper extremities. Patient has full range of motion of her right upper extremity without any numbness or tingling. She denies any chest pain or shortness of breath. She does state that she did have a CVA about 6 years ago which she fell and broke her collarbone on the right side, however she states that she does exercise regularly without any difficulty. Review of Systems A 14 point review of systems was completed all pertinent positives and negatives as stated in the HPI Past Medical History Past Medical History: Atrial Fibrillation, Diabetes Mellitus, Hyperlipidemia, Hy pertension, Sleep Apnea/CPAP/BIPAP History of Any Multi-Drug Resistant Organisms: None Reported Additional Past Surgical History / Comment(s): cataract, eye surgeries, D&C, ankle surgery to repair fracture,retinal Hemorrhage surgeries in both eyes,co lonoscopy. Past Anesthesia/Blood Transfusion Reactions: No Reported Reaction, Motion Sickness Past Psychological History: No Psychological Hx Reported, Depression Smoking Status: Never smoker Past Alcohol Use History: Rare Past Drug Use History: None Reported - Past Family History Mother Family Medical History: Vascular Disorder Father Family Medical History: Cancer Medications and Allergies Home Medications Medication Instructions Recorded Confirmed Type levETIRAcetam [Keppra] 500 mg PO Q12HR tab 07/29/15 12/27/21 Rx metFORMIN HCL [Glucophage] 500 mg PO BID-W/MEALS tab 07/29/15 12/27/21 Rx Levothyroxine Sodium [Synthroid] 88 mcg PO DAILY 12/27/21 12/27/21 History Losartan [Cozaar] 50 mg PO DAILY 12/27/21 12/27/21 History glipiZIDE XL [Glucotrol Xl] 10 mg PO DAILY 12/27/21 12/27/21 History Allergies Allergy/AdvReac Type Severity Reaction Status Date / Time Penicillins Allergy Itching Verified 12/27/21 20:17 Sulfa (Sulfonamide Allergy Unknown Verified 12/27/21 20:17 Antibiotics) codeine AdvReac Unknown Verified 12/27/21 20:17 all antibiotics Allergy Rash/Hives Uncoded 12/27/21 17:58 Surgical - Exam Vital Signs Temp Pulse Resp BP Pulse Ox 98.5 F 60 20 188/50 97 12/27/21 17:55 12/27/21 17:55 12/27/21 17:55 12/27/21 17:55 12/27/21 17:55 General appearance: The patient is alert, oriented, appears in no acute distress. HET: Head is normocephalic and atraumatic. Pupils are equal and reactive. Neck: Supple without lymphadenopathy. Trachea midline. No audible carotid bruit. Heart: S1 S2. Regular rate and rhythm. Lungs: Clear to auscultation bilaterally. Abdomen: Soft, nontender, nondistended. Extremities: Normal skin color and turgor. No cyanosis, rash, ulceration, clubbing, or edema. Radial and pedal pulses are 2/4 bilaterally. Neurological: No focal deficits. Strength and sensation are grossly intact. Results - Labs 12/31/21 07:36 12/31/21 07:36 Abnormal Lab Results - Last 24 Hours (Table) 12/30/21 12/30/21 12/30/21 Range/Units 07:11 07:11 12:20 MCHC 29.4 L (31.0-37.0) g/dL BUN 23 H (7-17) mg/dL Creatinine 1.16 H (0.52-1.04) mg/dL Glucose 128 H (74-99) mg/dL POC Glucose (mg/dL) 120 H (75-99) mg/dL 12/30/21 12/30/21 12/31/21 Range/Units 16:33 20:12 04:57 MCHC (31.0-37.0) g/dL BUN (7-17) mg/dL Creatinine (0.52-1.04) mg/dL Glucose (74-99) mg/dL POC Glucose (mg/dL) 116 H 163 H 120 H (75-99) mg/dL Diabetes panel 12/30/21 Range/Units 07:11 Sodium 137 (137-145) mmol/L Potassium 4.6 (3.5-5.1) mmol/L Chloride 106 (98-107) mmol/L Carbon Dioxide 23 (22-30) mmol/L BUN 23 H (7-17) mg/dL Creatinine 1.16 H (0.52-1.04) mg/dL Glucose 128 H (74-99) mg/dL Calcium 8.8 (8.4-10.2) mg/dL Calcium panel 12/30/21 Range/Units 07:11 Calcium 8.8 (8.4-10.2) mg/dL Pituitary panel 12/30/21 Range/Units 07:11 Sodium 137 (137-145) mmol/L Potassium 4.6 (3.5-5.1) mmol/L Chloride 106 (98-107) mmol/L Carbon Dioxide 23 (22-30) mmol/L BUN 23 H (7-17) mg/dL Creatinine 1.16 H (0.52-1.04) mg/dL Glucose 128 H (74-99) mg/dL Calcium 8.8 (8.4-10.2) mg/dL Adrenal panel 12/30/21 Range/Units 07:11 Sodium 137 (137-145) mmol/L Potassium 4.6 (3.5-5.1) mmol/L Chloride 106 (98-107) mmol/L Carbon Dioxide 23 (22-30) mmol/L BUN 23 H (7-17) mg/dL Creatinine 1.16 H (0.52-1.04) mg/dL Glucose 128 H (74-99) mg/dL Calcium 8.8 (8.4-10.2) mg/dL - Imaging Comments: Echocardiogram mild concentric left ventricular hypertrophy, EF between 45-50%, right ventricle mildly enlarged, probably moderately dilated, aortic valve is t rileaflet and mildly thickened, mitral valve mildly thickened, mild mild mitral regurgitation present, mild tricuspid regurgitation present, mild pulmonary hypertension, trace mild physiologic pulmonic regurgitation. No pericardial effusion. CT brain C-spine without contrast: Cerebral atrophy. No acute intracranial abnormality. No change. Spondylytic changes in the lower cervical spine. No fracture. No change compared to old exam. Chest x-ray: report reviewed (No evident complication status post pacemaker placement) Assessment and Plan Assessment: 1. Discordant blood pressure readings and upper extremities, right greater than left 2. Atrial fibrillation status post biventricular pacemaker placement 3. Syncope and fall Plan: Please get blood pressures simultaneously from left and right arm and record. Recent Carotid duplex reviewed without any concerns for antegrade flow. Patient is not having any extremity pain. No indication for any vascular surgical intervention. Can follow up outpatient for further workup. Thank you for this consultation, we will continue to follow. The impression and plan of care has been dictated as directed. I performed a history and examination of this patient, discussed the same with the dictator. I agree with the dictator's note ,documented as a scribe. Any additional findings or plans will be noted.
--- NOTE | 2021-12-31 13:37 | P.PN ---
Subjective Progress Note Date: 12/31/21 HISTORY OF PRESENT ILLNESS: This is a 76-year-old female with a past medical history significant for persistent atrial fibrillation, hypothyroidism, retinal hemorrhage, hypertension, diabetes and obstructive sleep apnea. Patient does not follow with a inspector tubes. We have been asked to see the patient in consultation for atrial fibrillation. Patient examined at the bedside. Patient states she was first diagnosed with atrial fibrillation earlier this year by her PCP. She was re ferred to a inspector tubes but she states she never saw a inspector tubes. She was started on Eliquis but states she began having blood in her urine so she stopped taking it. She also reports a history of retinal hemorrhage show she states that she has not taken her Eliquis. the patient presented to the hospital with a chief complaint of weakness. She states she has been feeling weak for the past few weeks. She states this past weekend she thought she was possibly having a mini stroke and had a couple episodes where she felt disoriented and had some slurred speech. She also reports falling twice at home and believes that she lost consciousness. She denies having any chest pain or pressure. She denies any shortness of breath. Overnight, the patient was found to be bradycardic and having pauses on telemetry. She also had a few runs of V-Tach. She was started on IV Dopamine. According to telemetry review, she began having more frequent runs of VT after her dopamine was initiated. * EKG reveals atrial fibrillation with controlled ventricular rate * Chest xray no active cardiopulmonary disease * Laboratory data: WBC 8.5. Hemoglobin 13.2. Platelet count 252. Sodium 136. Potassium 5.5. BUN 21. Creatinine 1.23. TSH 2.410. * Current home cardiac medications include losartan 50 mg daily * Echocardiogram completed revealing ejection fraction 45-50%, mild MR, mild TR, and mild pulmonary hypertension 12/31/2021 Patient is status post biventricular pacemaker implantation secondary to symptomatic bradycardia. Patient's device was interrogated this morning by aleksandra and was found to be functioning properly. Chest x-ray reviewed this morning. Patient denied chest pain or pressure. Denies shortness of breath. Vital signs are stable. PHYSICAL EXAM: VITAL SIGNS: Reviewed. GENERAL: Well-developed in no acute distress. HEENT: Head is normocephalic. Pupils are equal, round. Sclerae anicteric. Mucous membranes of the mouth are moist. Neck supple. No JVD or thyromegaly LUNGS: Respirations even and unlabored. Lungs essentially clear to auscultation bilaterally. HEART: Irregular rate and rhythm. S1 and S2 heard. ABDOMEN: Soft. Nondistended. Nontender. EXTREMITIES: Normal range of motion. No clubbing or cyanosis. Peripheral pulses intact. No lower extremity edema NEUROLOGIC: Awake and alert. Oriented x 3. ASSESSMENT: Syncope Persistent atrial fibrillation with bradycardia and pauses, declining to take oral anticoagulation Nonsustained ventricular tachycardia History of retinal hemorrhage Hypertension Diabetes Obstructive sleep apnea PLAN: Continue current cardiac medications Patient is stable for discharge home today from a cardiac standpoint Further recommendations pending patient course Nurse practitioner note has been reviewed by physician. Signing provider agrees with the documented findings, assessment, and plan of care. Objective - Vital Signs Vital signs: Vital Signs Temp 98.7 F 12/31/21 12:00 Pulse 60 12/31/21 12:00 Resp 17 12/31/21 12:00 BP 140/62 12/31/21 12:00 Pulse Ox 96 12/31/21 12:00 Intake & Output 12/30/21 12/31/21 12/31/21 18:59 06:59 18:59 Intake Total 290 640 360 Output Total 725 Balance 290 -85 360 Intake: IV 50 Oral 240 640 360 Output: Urine 725 Other: Voiding Method Bedside Commode Bedside Commode # Voids 1 1 - Labs CBC & Chem 7: 12/31/21 07:36 12/31/21 07:36 Labs: Abnormal Lab Results - Last 24 Hours (Table) 12/30/21 12/30/21 12/31/21 Range/Units 16:33 20:12 04:57 BUN (7-17) mg/dL Glucose (74-99) mg/dL POC Glucose (mg/dL) 116 H 163 H 120 H (75-99) mg/dL Creatine Kinase (30-135) U/L 12/31/21 12/31/21 Range/Units 07:36 11:39 BUN 20 H (7-17) mg/dL Glucose 142 H (74-99) mg/dL POC Glucose (mg/dL) 147 H (75-99) mg/dL Creatine Kinase 651 H (30-135) U/L
[2021-12-31 16:23] LABS: Glucose,Whole Blood 227 mg/dL (75-99)
[2021-12-31 20:22] LABS: Glucose,Whole Blood 187 mg/dL (75-99)
[2022-01-01 05:49] LABS: Glucose,Whole Blood 133 mg/dL (75-99)
[2022-01-01] MEDS: LEVOTHYROXINE 88 MCG TAB PO SCH (06:17)
[2022-01-01] MEDS ORDERED: metFORMIN 500 MG TAB PO SCH ×2 (07:30)
[2022-01-01 09:14] VITALS: RESP 18; TEMP 98.5
[2022-01-01] MEDS: levETIRAcetam 500 MG TAB PO SCH (09:37)
[2022-01-01] MEDS: HEPARIN SODIUM,PORCINE/PF 5,000 UNIT/0.5 ML SYRINGE SQ SCH (09:37)
[2022-01-01] MEDS: LOSARTAN 50 MG TAB PO SCH (09:37)
[2022-01-01] MEDS ORDERED: METOPROLOL SUCCINATE (ER) 50 MG TAB.ER.24H PO SCH (10:15)
[2022-01-01 10:56] LABS: Glucose,Whole Blood 177 mg/dL (75-99)
[2022-01-01 11:43] VITALS: BP 146/84; PULSE 59
[2022-01-01 12:03] VITALS: BMI 42.7
--- NOTE | 2022-01-01 13:05 | P.PN ---
Subjective Progress Note Date: 01/01/22 HISTORY OF PRESENT ILLNESS: This is a 76-year-old female with a past medical history significant for persistent atrial fibrillation, hypothyroidism, retinal hemorrhage, hypertension, diabetes and obstructive sleep apnea. Patient does not follow with a emergency room tech. We have been asked to see the patient in consultation for atrial fibrillation. Patient examined at the bedside. Patient states she was first diagnosed with atrial fibrillation earlier this year by her PCP. She was re ferred to a emergency room tech but she states she never saw a emergency room tech. She was started on Eliquis but states she began having blood in her urine so she stopped taking it. She also reports a history of retinal hemorrhage show she states that she has not taken her Eliquis. the patient presented to the hospital with a chief complaint of weakness. She states she has been feeling weak for the past few weeks. She states this past weekend she thought she was possibly having a mini stroke and had a couple episodes where she felt disoriented and had some slurred speech. She also reports falling twice at home and believes that she lost consciousness. She denies having any chest pain or pressure. She denies any shortness of breath. Overnight, the patient was found to be bradycardic and having pauses on telemetry. She also had a few runs of V-Tach. She was started on IV Dopamine. According to telemetry review, she began having more frequent runs of VT after her dopamine was initiated. * EKG reveals atrial fibrillation with controlled ventricular rate * Chest xray no active cardiopulmonary disease * Laboratory data: WBC 8.5. Hemoglobin 13.2. Platelet count 252. Sodium 136. Potassium 5.5. BUN 21. Creatinine 1.23. TSH 2.410. * Current home cardiac medications include losartan 50 mg daily * Echocardiogram completed revealing ejection fraction 45-50%, mild MR, mild TR, and mild pulmonary hypertension 12/31/2021 Patient is status post biventricular pacemaker implantation secondary to symptomatic bradycardia. Patient's device was interrogated this morning by aleksandra and was found to be functioning properly. Chest x-ray reviewed this morning. Patient denied chest pain or pressure. Denies shortness of breath. Vital signs are stable. 01/01/2022 Patient examined this morning. Patient denies chest pain or pressure. She denies shortness of breath. Vital signs are stable. PHYSICAL EXAM: VITAL SIGNS: Reviewed. GENERAL: Well-developed in no acute distress. HEENT: Head is normocephalic. Pupils are equal, round. Sclerae anicteric. Mucous membranes of the mouth are moist. Neck supple. No JVD or thyromegaly LUNGS: Respirations even and unlabored. Lungs essentially clear to auscultation bilaterally. HEART: Irregular rate and rhythm. S1 and S2 heard. ABDOMEN: Soft. Nondistended. Nontender. EXTREMITIES: Normal range of motion. No clubbing or cyanosis. Peripheral pulses intact. No lower extremity edema NEUROLOGIC: Awake and alert. Oriented x 3. ASSESSMENT: Syncope Persistent atrial fibrillation with bradycardia and pauses, declining to take oral anticoagulation Nonsustained ventricular tachycardia History of retinal hemorrhage Hypertension Diabetes Obstructive sleep apnea PLAN: Continue current cardiac medications Patient is stable for discharge home today from a cardiac standpoint Further recommendations pending patient course Nurse practitioner note has been reviewed by physician. Signing provider agrees with the documented findings, assessment, and plan of care. Objective - Vital Signs Vital signs: Vital Signs Temp 98.5 F 01/01/22 09:08 Pulse 59 L 01/01/22 11:41 Resp 18 01/01/22 11:41 BP 146/84 01/01/22 11:41 Pulse Ox 98 01/01/22 11:41 Intake & Output 12/31/21 01/01/22 01/01/22 18:59 06:59 18:59 Intake Total 1618 240 Output Total 325 Balance 1618 -85 Weight 106 kg Intake: Oral 1618 240 Output: Urine 325 Other: Voiding Method Bedside Commode Bedside Commode Bedside Commode # Voids 2 2 - Labs CBC & Chem 7: 12/31/21 07:36 12/31/21 07:36 Labs: Abnormal Lab Results - Last 24 Hours (Table) 12/31/21 12/31/21 01/01/22 Range/Units 16:22 20:21 05:48 POC Glucose (mg/dL) 227 H 187 H 133 H (75-99) mg/dL 01/01/22 Range/Units 10:54 POC Glucose (mg/dL) 177 H (75-99) mg/dL
--- NOTE | 2022-01-01 14:03 | P.PN ---
Subjective Progress Note Date: 12/31/21 Patient is a 76-year-old female with a known history of diabetes type 2 non insulin-dependent, atrial fibrillation not on any anticoagulation, hypertension, hyperlipidemia, obstructive sleep apnea, history of cataracts, diabetic retinal hemorrhage, history of CVA and seizure disorder presents to ER due to not feeling well and weakness. Patient has been having weakness and near syncopal episodes yesterday. Denied any palpitations or chest pain prior to fall. No recent seizures. Patient has been taking medications regularly. No recent illnesses. No cough or sputum production. No fever no chills. On December 07 patient was found to be having atrial fibrillation and was started on anticoagulation with Eliquis. Patient did take 3 doses and let us stop taking anticoagulation because she is afraid of getting routine hemorrhage again. Patient was not seen by cardiology. Patient is also having leg swelling for the past few months. Denied any numbness or tingling. Chest x-ray showed no acute cardiopulmonary disease. No change. CT head and cervical spine showed cerebral atrophy. No acute intracranial abnormality. No change. Spondylitic changes in the lower cervical spine. No fracture. No change compared to old exam. EKG showed atrial fibrillation with aberrant conduction or ventricular premature complexes. Laboratory data showed WBC 9.4 hemoglobin 13.1 platelets 255 Sodium 137 potassium 5.2 chloride 104 bicarb is 25 BUN 34 and creatinine 1.36 and blood sugar was 36 on admission. Lactic acid 2.2 and CK2 256. Influenza PCR and COVID-19 PCR not detected. 12/29/2021 Patient is currently awake alert and oriented x3. Patient was admitted to the hospital due to falls. EKG showed atrial fibrillation with controlled ventricular rate and bradycardia with pauses. Cardiology is recommending permanent pacemaker placement. Patient was also started on dobutamine. 2D echocardiogram showed ejection fraction 45 to 50%, mild MR and mild TR and mild pulmonary hypertension. Patient denied any complaints of chest pain or shortness of breath. Blood sugar is controlled. No hypoglycemic episodes. Laboratory showed sodium 136 potassium 5.5 chloride 103 BUN 21 and creatinine 1.23. Patient is being continued on IV hydration with 75 cc/h. Patient does not want to take anticoagulation. 12/30/2021 Patient is currently resting in bed. Awake alert and oriented x3. Denies any complaints of dizziness or lightheadedness. Patient is status post PPM. Postoperative day 0. No complaints of chest pain. No nausea vomiting abdominal diarrhea. No headache or dizziness or lightheadedness. Tolerating oral diet. 's laboratory showed sodium 137 potassium 4.6 chloride 106 bicarb is 23 BUN 23 and creatinine 1.16. Patient is being continued on IV hydration with normal saline at 75 cc/h. Blood sugar is 128. 12/31/2021 Patient is currently resting in the bed. Awake alert and oriented x3. No complaints of chest pain. No shortness of breath. Blood sugars controlled. Patient is status post permanent pacemaker placement postoperative day 1. Denied any dizziness or lightheadedness. Patient is still in atrial fibrillation. Patient has been afebrile. No nausea vomiting abdominal diarrhea. Tolerating oral diet. Lab data showed WBC 6.6 hemoglobin 12.6 and platelets 236 sodium 137 potassium 4.3 chloride 104 BUN 20 and creatinine 1.02 and glucose 142 and CK level is 651. PT OT is following and possible discharge to rehab in the next 24 hours. Current medications reviewed. Objective - Vital Signs Vital signs: Vital Signs Temp 98.7 F 12/31/21 12:00 Pulse 60 12/31/21 12:00 Resp 17 12/31/21 12:00 BP 140/62 12/31/21 12:00 Pulse Ox 96 12/31/21 12:00 Intake & Output 12/30/21 12/31/21 12/31/21 18:59 06:59 18:59 Intake Total 290 640 720 Output Total 725 Balance 290 -85 720 Intake: IV 50 Oral 240 640 720 Output: Urine 725 Other: Voiding Method Bedside Commode Bedside Commode # Voids 1 1 - Exam PHYSICAL EXAMINATION: Patient is lying in the bed comfortably, no acute distress, awake alert and oriented. Morbidly obese.. HEENT: Normocephalic. Neck is supple. Pupils reactive. Nostrils clear. Oral cavity is moist. Neck reveals no JVD, carotid bruits, or thyromegaly. CHEST EXAMINATION: Trachea is central. Symmetrical expansion. Lung medeiros clear to auscultation and percussion. CARDIAC: Normal S1, S2 with no gallops. No murmurs , irregularly irregular rhythm. ABDOMEN: Soft. Bowel sounds normal. No organomegaly. No abdominal bruits. Extremities: 2+ pedal edema. No clubbing or cyanosis Neurologically awake, alert, oriented x3 with well-coordinated movements. No focal deficits noted Skin: No rash or skin lesions. Psychiatric: Coperative. Nonsuicidal Musculoskeletal: No joint swelling or deformity. Normal range of motion. - Labs CBC & Chem 7: 12/31/21 07:36 12/31/21 07:36 Labs: Abnormal Lab Results - Last 24 Hours (Table) 12/30/21 12/30/21 12/31/21 Range/Units 16:33 20:12 04:57 BUN (7-17) mg/dL Glucose (74-99) mg/dL POC Glucose (mg/dL) 116 H 163 H 120 H (75-99) mg/dL Creatine Kinase (30-135) U/L 12/31/21 12/31/21 Range/Units 07:36 11:39 BUN 20 H (7-17) mg/dL Glucose 142 H (74-99) mg/dL POC Glucose (mg/dL) 147 H (75-99) mg/dL Creatine Kinase 651 H (30-135) U/L Assessment and Plan Assessment: Acute syncopal episode acute rhabdomyolysis. CPK 2256 on admission. Persistant atrial fibrillation. Patient was found to have bradycardia and sinus pauses. Rate controlled. Not on any anticoagulation. Patient refused to take medication and is concerned due to previous retinal hemorrhage. Altered mental status likely due to hypoglycemia. Hypertension Diabetes type 2 [id number]. On metformin and glipizide at home. Hyperlipidemia Obstructive sleep apnea Morbid obesity BMI 45.7 Prior history of seizure disorder Hypothyroidism DVT prophylaxis with heparin subcu Plan: Patient will be continued on telemetry monitoring. Cardiology has seen the patient and patient was started on dobutamine due to bradycardia and sinus pauses. s/p pacemaker placement on 12/30. Patient was given D50 and continue with oral intake. Glipizide and metformin is on hold currently. Monitor blood sugar closely. patient will be started back on metformin Continue with home medications including Keppra and levothyroxine. Continue to follow closely. Time with Patient: Greater than 30
--- NOTE | 2022-01-01 14:06 | P.DS ---
Providers Date of admission: 12/27/21 22:30 Expected date of discharge: 01/01/22 Attending physician: Elis Gonzalez Consults: 12/28/21 12:38 Consult Physician Routine Consulting Provider: Carlos Nassar Consult Reason/Comments: atrial fibrillation Do you want consulting provider notified?: Yes 12/31/21 02:21 Consult Physician Routine Consulting Provider: Alyce Asher Consult Reason/Comments: blood pressure higher in right arm vs left arm Do you want consulting provider notified?: Yes, Notify in am Primary care physician: Danita Yarbrough [facility] Course: Discharge diagnosis Acute syncopal episode Persistant atrial fibrillation. Patient was found to have bradycardia and sinus pauses. Rate controlled. Not on any anticoagulation. Patient refused to take medication and is concerned due to previous retinal hemorrhage. Altered mental status likely due to hypoglycemia. acute rhabdomyolysis. CPK 2256 on admission. Hypertension Diabetes type 2 [id number]. On metformin and glipizide at home. Hyperlipidemia Obstructive sleep apnea Morbid obesity BMI 45.7 Prior history of seizure disorder Hypothyroidism DVT prophylaxis with heparin subcu Hospital course Patient is a 76-year-old female with a known history of diabetes type 2 non insulin-dependent, atrial fibrillation not on any anticoagulation, hypertension, hyperlipidemia, obstructive sleep apnea, history of cataracts, diabetic retinal hemorrhage, history of CVA and seizure disorder presents to ER due to not feeling well and weakness. Patient has been having weakness and near syncopal episodes yesterday. Denied any palpitations or chest pain prior to fall. No recent seizures. Patient has been taking medications regularly. No recent illnesses. No cough or sputum production. No fever no chills. On December 07 patient was found to be having atrial fibrillation and was started on anticoagulation with Eliquis. Patient did take 3 doses and let us stop taking anticoagulation because she is afraid of getting routine hemorrhage again. Patient was not seen by cardiology. Patient is also having leg swelling for the past few months. Denied any numbness or tingling. Chest x-ray showed no acute cardiopulmonary disease. No change. CT head and cervical spine showed cerebral atrophy. No acute intracranial abnormality. No change. Spondylitic changes in the lower cervical spine. No fracture. No change compared to old exam. EKG showed atrial fibrillation with aberrant conduction or ventricular premature complexes. Laboratory data showed WBC 9.4 hemoglobin 13.1 platelets 255 Sodium 137 potassium 5.2 chloride 104 bicarb is 25 BUN 34 and creatinine 1.36 and blood sugar was 36 on admission. Lactic acid 2.2 and CK2 256. Influenza PCR and COVID-19 PCR not detected. 12/29/2021 Patient is currently awake alert and oriented x3. Patient was admitted to the hospital due to falls. EKG showed atrial fibrillation with controlled ventricular rate and bradycardia with pauses. Cardiology is recommending permanent pacemaker placement. Patient was also started on dobutamine. 2D echocardiogram showed ejection fraction 45 to 50%, mild MR and mild TR and mild pulmonary hypertension. Patient denied any complaints of chest pain or shortness of breath. Blood sugar is controlled. No hypoglycemic episodes. Laboratory showed sodium 136 potassium 5.5 chloride 103 BUN 21 and creatinine 1 .23. Patient is being continued on IV hydration with 75 cc/h. Patient does not want to take anticoagulation. 12/30/2021 Patient is currently resting in bed. Awake alert and oriented x3. Denies any complaints of dizziness or lightheadedness. Patient is status post PPM. Postoperative day 0. No complaints of chest pain. No nausea vomiting abdominal diarrhea. No headache or dizziness or lightheadedness. Tolerating oral diet. 's laboratory showed sodium 137 potassium 4.6 chloride 106 bicarb is 23 BUN 23 and creatinine 1.16. Patient is being continued on IV hydration with normal saline at 75 cc/h. Blood sugar is 128. 12/31/2021 Patient is currently resting in the bed. Awake alert and oriented x3. No complaints of chest pain. No shortness of breath. Blood sugars controlled. Patient is status post permanent pacemaker placement postoperative day 1. Denied any dizziness or lightheadedness. Patient is still in atrial fibrillation. Patient has been afebrile. No nausea vomiting abdominal diarrhea. Tolerating oral diet. Lab data showed WBC 6.6 hemoglobin 12.6 and platelets 236 sodium 137 potassium 4.3 chloride 104 BUN 20 and creatinine 1.02 and glucose 142 and CK level is 651. PT OT is following and possible discharge to rehab in the next 24 hours. 01/01/2022 Patient is currentlySitting in the chair comfortably. No complaints of chest pain or shortness of breath. Blood sugar is better controlled. Start back on metformin. No nausea vomiting abdominal pain or diarrhea. Tolerating oral diet. Patient was seen by vascular surgery due to discrepancy in blood pressure in both arms. Patient is scheduled for outpatient follow-up and also carotid duplex. Patient will be following with cardiology In 1 week for suture removal and pacemaker evaluation. Patient is being discharged to rehab today. PHYSICAL EXAMINATION: Patient is lying in the bed comfortably, no acute distress, awake alert and oriented.. HEENT: Normocephalic. Neck is supple. Pupils reactive. Nostrils clear. Oral cavity is moist. Neck reveals no JVD, carotid bruits, or thyromegaly. CHEST EXAMINATION: Trachea is central. Symmetrical expansion. Lung medeiros clear to auscultation and percussion. CARDIAC: Normal S1, S2 with no gallops. No murmurs ABDOMEN: Soft. Bowel sounds normal. No organomegaly. No abdominal bruits. Extremities: reveal no edema. No clubbing or cyanosis Neurologically awake, alert, oriented x3 with well-coordinated movements. No focal deficits noted Skin: No rash or skin lesions. Psychiatric: Coperative. Nonsuicidal Musculoskeletal: No joint swelling or deformity. Normal range of motion. Vital Signs 01/01/22 01/01/22 01/01/22 08:00 09:08 11:41 Temperature 98.5 F Pulse Rate [ 57 L 59 L Pulse Oximetery ] Respiratory 18 18 18 Rate Blood Pressure 150/72 146/84 [Left Arm] O2 Sat by Pulse 94 L 98 Oximetry Total time taken greater than 35 minutes including 18 minutes for counseling and coordination of care. Patient Condition at Discharge: Serious Plan - Discharge Summary Discharge Rx Participant: Yes New Discharge Prescriptions: New Metoprolol Succinate (ER) [Toprol XL] 50 mg PO DAILY #30 Continue levETIRAcetam [Keppra] 500 mg PO Q12HR tab metFORMIN HCL [Glucophage] 500 mg PO BID-W/MEALS tab Levothyroxine Sodium [Synthroid] 88 mcg PO DAILY Losartan [Cozaar] 50 mg PO DAILY Discontinued glipiZIDE XL [Glucotrol Xl] 10 mg PO DAILY Discharge Medication List levETIRAcetam [Keppra] 500 mg PO Q12HR tab 07/29/15 [Rx] metFORMIN HCL [Glucophage] 500 mg PO BID-W/MEALS tab 07/29/15 [Rx] Levothyroxine Sodium [Synthroid] 88 mcg PO DAILY 12/27/21 [History] Losartan [Cozaar] 50 mg PO DAILY 12/27/21 [History] Metoprolol Succinate (ER) [Toprol XL] 50 mg PO DAILY #30 01/01/22 [Rx] Follow up Appointment(s)/Referral(s): Carlos Nassar MD [STAFF PHYSICIAN] - 1 Week Danita Yarbrough MD [Primary Care Provider] - 1-2 days Activity/Diet/Wound Care/Special Instructions: PATIENT EDUCATION MATERIAL Instructions following a heart rhythm device implant. 1. Keep dressing DRY for 5 DAYS. You may cover the area with Saran or Cling Wrap, prior to a shower. 2. The dressing will be removed in the Device Clinic at [facility]. Absorbable sutures were used to close the wound. 3. Avoid raising the left arm above the shoulder level. 4 week restriction 4. Avoid arm movements, like backscratching, rubbing the head, or pulling on a cord. 4 weeks restriction 5. Gentle range of motion movements of the shoulder, closest to the incision should be performed to avoid a frozen shoulder. (Pendulum exercises of the shoulder) 6. The opposite arm may be used freely. 7. Avoid driving for 7 days. 8. Avoid activities such as golfing, swimming, weed whacking, lifting more than 10 pounds weight, bowling, gymnastics and weight training/lifting. (6 weeks restriction) 9. Activities such as wood chopping with an axe, pull-ups in the gymnasium, power lifting, arc-welding, being close to home induction cooktops will always be a problem. 10. Arm sling is only a reminder not to raise the arm above the head. You do not need to keep the arm completely immobilized. Your free to move the arm and use it and for normal activities. In case of any problems, please call [facility], Y[facility] Coreas, @ [phone], Attention: Device Clinic Device clinic follow-up in 5 days Follow-up with primary production operations inspector in 1 months Discharge Disposition: TRANSFER TO SNF/ECF
--- NOTE | 2022-01-01 14:22 | P.PN ---
Subjective Progress Note Date: 01/01/22 Principal diagnosis: Discordant blood pressure and upper extremities Patient seen and examined is a follow-up today for consult for discordant blood pressures in her right and left upper extremities. Yesterday we asked that they get a blood pressure in the left and right upper extremity at the same time. Right was reported as 177/79 and left 142/68. Patient underwent a pacemaker placement during this admission. Patient is asymptomatic with any upper extremity pain, no focal symptoms. She is currently denying any chest pain or shortness of breath. Objective - Vital Signs Vital signs: Vital Signs Temp 98.2 F 01/01/22 04:00 Pulse 72 01/01/22 04:00 Resp 20 01/01/22 04:00 BP 137/75 01/01/22 04:00 Pulse Ox 96 01/01/22 04:00 Intake & Output 12/31/21 01/01/22 01/01/22 18:59 06:59 18:59 Intake Total 1618 240 Output Total 325 Balance 1618 -85 Intake: Oral 1618 240 Output: Urine 325 Other: Voiding Method Bedside Commode Bedside Commode # Voids 2 2 - Exam General appearance: The patient is alert, oriented, appears in no acute distress. HET: Head is normocephalic and atraumatic. Pupils are equal and reactive. Neck: Supple without lymphadenopathy. Trachea midline. No audible carotid br uit. Heart: S1 S2. Regular rate and rhythm. Lungs: Clear to auscultation bilaterally. Abdomen: Soft, nontender, nondistended. Extremities: Normal skin color and turgor. No cyanosis, rash, ulceration, clubbing, or edema. Palpable +2 radial pulse bilaterally. Full range of motion of bilateral upper extremities Neurological: No focal deficits. Strength and sensation are grossly intact. - Labs CBC & Chem 7: 12/31/21 07:36 12/31/21 07:36 Labs: Abnormal Lab Results - Last 24 Hours (Table) 12/31/21 12/31/21 12/31/21 Range/Units 11:39 16:22 20:21 POC Glucose (mg/dL) 147 H 227 H 187 H (75-99) mg/dL 01/01/22 Range/Units 05:48 POC Glucose (mg/dL) 133 H (75-99) mg/dL Assessment and Plan Assessment: 1. Discordant blood pressure readings and upper extremities, right greater than left 2. Atrial fibrillation status post biventricular pacemaker placement 3. Syncope and fall Plan: No findings for any acute surgical intervention. Recommend patient to follow-up with vascular surgery and not 2-3 weeks for outpatient follow-up including carotid duplex. Patient is cleared for discharge from vascular surgery. The impression and plan of care has been dictated as directed. I performed a history and examination of this patient, discussed the same with the dictator. I agree with the dictator's note ,documented as a scribe. Any additional findings or plans will be noted.
== END 2022-01-01 13:46 | DRG 243 ==
LOC: EC 17:50 → 4SSUR 22:30 → 3SCARD 12-29 00:22
PROVIDERS: ADMIT Hospitalist; ATTEND Hospitalist
PROC: 02H43JZ Insertion of Pacemaker Lead into Coronary Vein, Percutaneous Approach (ICD-10-PCS; 2021-12-30)
PROC: 4A023FZ Measurement of Cardiac Rhythm, Percutaneous Approach (ICD-10-PCS; 2021-12-30)
PROC: 4A0234Z Measurement of Cardiac Electrical Activity, Percutaneous Approach (ICD-10-PCS; 2021-12-30)
PROC: 02K83ZZ Map Conduction Mechanism, Percutaneous Approach (ICD-10-PCS; 2021-12-30)
PROC: 4B02XTZ Measurement of Cardiac Defibrillator, External Approach (ICD-10-PCS; 2021-12-30)
PROC: 0JH607Z Insertion of Cardiac Resynchronization Pacemaker Pulse Generator into Chest Subcutaneous Tissue and Fascia, Open Approach (ICD-10-PCS; principal; 2021-12-30 09:30)
PROC: 02H Heart and Great Vessels, Insertion (ICD-10-PCS; 2021-12-30 09:30)
DX: I49.5 Sick sinus syndrome (principal); M62.82 Rhabdomyolysis; N39.0 Urinary tract infection, site not specified; Z68.42 Body mass index [BMI] 45.0-49.9, adult; I47.2 Ventricular tachycardia; I48.19 Other persistent atrial fibrillation; E11.649 Type 2 diabetes mellitus with hypoglycemia without coma; E11.65 Type 2 diabetes mellitus with hyperglycemia; R55 Syncope and collapse; I08.1 Rheumatic disorders of both mitral and tricuspid valves; E78.5 Hyperlipidemia, unspecified; G47.33 Obstructive sleep apnea (adult) (pediatric); E66.01 Morbid (severe) obesity due to excess calories; G40.909 Epilepsy, unspecified, not intractable, without status epilepticus; Z20.822 Contact with and (suspected) exposure to COVID-19; E03.9 Hypothyroidism, unspecified; G31.89 Other specified degenerative diseases of nervous system; M47.892 Other spondylosis, cervical region; R47.81 Slurred speech; I10 Essential (primary) hypertension; I27.20 Pulmonary hypertension, unspecified; R29.6 Repeated falls; W19.XXXA Unspecified fall, initial encounter; Y92.009 Unspecified place in unspecified non-institutional (private) residence as the place of occurrence of the external cause; Z79.01 Long term (current) use of anticoagulants; Z79.84 Long term (current) use of oral hypoglycemic drugs; Z79.890 Hormone replacement therapy; Z79.899 Other long term (current) drug therapy; Z80.1 Family history of malignant neoplasm of trachea, bronchus and lung; Z86.73 Personal history of transient ischemic attack (TIA), and cerebral infarction without residual deficits; Z91.14 Patient's other noncompliance with medication regimen; Z88.2 Allergy status to sulfonamides; Z88.0 Allergy status to penicillin; Z88.5 Allergy status to narcotic agent; Z98.49 Cataract extraction status, unspecified eye
CPT/HCPCS: 33208; 33225; 36415; 70450; 71045; 72125; 80048; 81001; 82550; 83605; 83735; 83880; 84443; 85025; 85610; 85730; 86850; 86900; 86901; 87086; 87635; 87636; 93005; 93306; 96374; 99285

== ENCOUNTER 2022-05-24 11:54 | Emergency (ER) | payer MEDICARE ==
--- NOTE | 2022-05-24 12:41 | ED ---
General Adult HPI - General Chief complaint: Weakness Stated complaint: Fall,Syncope Time Seen by Provider: 05/24/22 12:00 Source: patient Mode of arrival: EMS Limitations: no limitations - History of Present Illness Initial comments: Dictation was produced using [employer] dictation software. please excuse any grammatical, word or spelling errors. Chief Complaint: 76-year-old male presents to the emergency department for generalized weakness History of Present Illness: 76-year-old female multiple comorbidities. She presents to the emergency department after she fell today. Patient states she's been feeling weak since yesterday. Denies any syncopal event. Patient states that she's been feeling generally weak since yesterday. Denies any fever or constitutional symptoms. Patient denies any pain complaints. Denies any short ness of breath. No nausea vomiting. Patient states that she just feels so weak she is unable to perform her daily exercise. She called EMS who ultimately convinced patient that she should come to the emergency department to be evaluated. The ROS documented in this emergency department record has been reviewed and confirmed by me. Those systems with pertinent positive or negative responses ilang ve been documented in the HPI. All other systems are other negative and/or noncontributory. PHYSICAL EXAM: General Impression: Alert and oriented x3, not in acute distress HEENT: Normocephalic atraumatic, extra-ocular movements intact, pupils equal and reactive to light bilaterally, mucous membranes moist. Cardiovascular: Heart regular rate and rhythm Chest: Able to complete full sentences, no retractions, no tachypnea Abdomen: abdomen soft, non-tender, non-distended, no organomegaly Musculoskeletal: Pulses present and equal in all extremities, no peripheral edema Motor: no focal deficits noted Neurological: CN II-XII grossly intact, no focal motor or sensory deficits noted Skin: Intact with no visualized rashes Psych: Normal affect and mood ED course: 76-year-old female presents to the emergency department for has weakness since yesterday. She did suffer a fall. Vital signs upon arrival are within acceptable limits. Patient's well-appearing. Patient's history present illness does not suggest syncopal event however she does have cardiac history. Chart review shows that back in December of this year she had a pacemaker placed for A. fib associated with bradycardia. Blood work was obtained. CBC Paul. Coag panel is negative. Metabolic panel shows hyperglycemia 41. Rest metabolic panel within acceptable limits. 4 panel viral PCR is negative for influenza, RSV or coronavirus. Patient given oral intake Patient reevaluated at bedside at 3:00 PM. Medications were reviewed with the patient. She takes a sulfonylurea and metformin. Patient states she was not able to eat after taking her aunt had diabetes medications. It was strongly recommended the patient to be admitted for glucose monitoring given that there is no clear source of hypoglycemia. It's likely her hypoglycemia secondary to her diabetes medications with poor oral intake. Patient does not want to be admitted to the hospital for glucose monitoring. Urinalysis is positive for urinary tract infection. Patient monitored further patient reevaluated again at 4:00 and found to be in stable medical condition. Her sugars are stabilized. Patient given IV antibiotics for urinary tract infection. Patient stable for discharge. Patient given return precautions. She is told to stop her anti-diabetes medications for the time being. She is told to schedule an appointment with her primary care doctor as soon as possible for further care. She is strongly advised to use her glucometer at home. EKG interpretation: Ventricular rate 52, paced rhythm, QRS 149, QS 45. No GA prolongation, no QTC prolongation, no ST or T-wave changes noted. - Related Data Home Medications Medication Instructions Recorded Confirmed Levothyroxine Sodium [Synthroid] 88 mcg PO DAILY@79912/27/21 05/24/22 Losartan [Cozaar] 50 mg PO DAILY@79912/27/21 05/24/22 Cholecalciferol [Vitamin D3 (125 125 mcg PO DAILY@79905/24/22 05/24/22 Mcg = 5000 Iu)] Cyanocobalamin/Cobamamide [Vitamin 1 tab SUBLINGUAL DAILY@79905/24/22 05/24/22 B-12 5,000 Mcg Tab Sl] Grape Seed Oil 1 dose PO HS@199905/24/22 05/24/22 Metoprolol Succinate (ER) [Toprol 50 mg PO BID@05/24/22 05/24/22 XL] Rosuvastatin [Crestor] 10 mg PO HS@199905/24/22 05/24/22 Rutin/Quercetin/Bioflav/Bilber 1 cap PO DAILY@79905/24/22 05/24/22 [Bilberry Extract] glipiZIDE XL [Glucotrol Xl] 10 mg PO DAILY@0800 05/24/22 05/24/22 levETIRAcetam [Keppra] 500 mg PO BID@08,199905/24/22 05/24/22 metFORMIN HCL [Glucophage] 500 mg PO BID@08,199905/24/22 05/24/22 Previous Rx's Medication Instructions Recorded Cefpodoxime Proxetil [Vantin] 200 mg PO Q12HR 10 Days #20 tab 05/24/22 Allergies Allergy/AdvReac Type Severity Reaction Status Date / Time Penicillins Allergy Itching Verified 05/24/22 14:35 Sulfa (Sulfonamide Allergy Unknown Verified 05/24/22 14:35 Antibiotics) codeine AdvReac Unknown Verified 05/24/22 14:35 all antibiotics Allergy Rash/Hives Uncoded 05/24/22 12:05 Review of Systems ROS Statement: Those systems with pertinent positive or pertinent negative responses have been documented in the HPI. ROS Other: All systems not noted in ROS Statement are negative. Past Medical History Past Medical History: Atrial Fibrillation, Diabetes Mellitus, Hyperlipidemia, Hypertension, Sleep Apnea/CPAP/BIPAP History of Any Multi-Drug Resistant Organisms: None Reported Additional Past Surgical History / Comment(s): cataract, eye surgeries, D&C, ankle surgery to repair fracture,retinal Hemorrhage surgeries in both eyes,colonoscopy. Past Anesthesia/Blood Transfusion Reactions: No Reported Reaction, Motion Sickness Past Psychological History: No Psychological Hx Reported, Depression Smoking Status: Never smoker Past Alcohol Use History: Rare Past Drug Use History: None Reported - Past Family History Mother Family Medical History: Vascular Disorder Father Family Medical History: Cancer General Exam Limitations: no limitations Course Vital Signs 05/24/22 05/24/22 12:02 14:06 Temperature 98.5 F Pulse Rate 56 L 64 Respiratory 20 18 Rate Blood Pressure 156/105 130/90 O2 Sat by Pulse 97 99 Oximetry Medical Decision Making - Lab Data Result diagrams: 05/24/22 12:56 05/24/22 12:56 Lab Results 05/24/22 05/24/22 05/24/22 Range/Units 12:56 12:56 12:56 WBC 9.3 (3.8-10.6) k/uL RBC 5.04 (3.80-5.40) m/uL Hgb 13.6 (11.4-16.0) gm/dL Hct 43.8 (34.0-46.0) % MCV 86.9 (80.0-100.0) fL MCH 27.1 (25.0-35.0) pg MCHC 31.2 (31.0-37.0) g/dL RDW 13.9 (11.5-15.5) % Plt Count 204 (150-450) k/uL MPV 7.9 Neutrophils % 83 % Lymphocytes % 9 % Monocytes % 6 % Eosinophils % 1 % Basophils % 1 % Neutrophils # 7.7 (1.3-7.7) k/uL Lymphocytes # 0.8 L (1.0-4.8) k/uL Monocytes # 0.6 (0-1.0) k/uL Eosinophils # 0.1 (0-0.7) k/uL Basophils # 0.1 (0-0.2) k/uL PT 11.6 (9.0-12.0) sec INR 1.1 (<1.2) APTT 22.6 (22.0-30.0) sec Sodium 137 (137-145) mmol/L Potassium 4.2 (3.5-5.1) mmol/L Chloride 100 (98-107) mmol/L Carbon Dioxide 23 (22-30) mmol/L Anion Gap 14 mmol/L BUN 22 H (7-17) mg/dL Creatinine 1.08 H (0.52-1.04) mg/dL Est GFR (CKD-EPI)AfAm 58 (>60 ml/min/1.73 sqM) Est GFR (CKD-EPI)NonAf 50 (>60 ml/min/1.73 sqM) Glucose 41 L* (74-99) mg/dL POC Glucose (mg/dL) (70-110) mg/dL POC Glu Bulb Grader ID Calcium 9.4 (8.4-10.2) mg/dL Magnesium 1.3 L (1.6-2.3) mg/dL Total Bilirubin 1.0 (0.2-1.3) mg/dL AST 25 (14-36) U/L ALT 11 (4-34) U/L Alkaline Phosphatase 79 (38-126) U/L Troponin I (0.000-0.034) ng/mL Total Protein 6.8 (6.3-8.2) g/dL Albumin 4.2 (3.5-5.0) g/dL TSH 3.670 (0.465-4.680) mIU/L Urine Color Urine Appearance (Clear) Urine pH (5.0-8.0) Ur Specific [place] (1.001-1.035) Urine Protein (Negative) Urine Glucose (UA) (Negative) Urine Ketones (Negative) Urine Blood (Negative) Urine Nitrite (Negative) Urine Bilirubin (Negative) Urine Urobilinogen (<2.0) mg/dL Ur Leukocyte Esterase (Negative) Urine RBC (0-5) /hpf Urine WBC (0-5) /hpf Ur Squamous Epith Cells (0-4) /hpf Influenza Type A (PCR) (Not Detectd) Influenza Type B (PCR) (Not Detectd) RSV (PCR) (Not Detectd) SARS-CoV-2 (PCR) (Not Detectd) 05/24/22 05/24/22 05/24/22 Range/Units 12:56 12:56 13:45 WBC (3.8-10.6) k/uL RBC (3.80-5.40) m/uL Hgb (11.4-16.0) gm/dL Hct (34.0-46.0) % MCV (80.0-100.0) fL MCH (25.0-35.0) pg MCHC (31.0-37.0) g/dL RDW (11.5-15.5) % Plt Count (150-450) k/uL MPV Neutrophils % % Lymphocytes % % Monocytes % % Eosinophils % % Basophils % % Neutrophils # (1.3-7.7) k/uL Lymphocytes # (1.0-4.8) k/uL Monocytes # (0-1.0) k/uL Eosinophils # (0-0.7) k/uL Basophils # (0-0.2) k/uL PT (9.0-12.0) sec INR (<1.2) APTT (22.0-30.0) sec Sodium (137-145) mmol/L Potassium (3.5-5.1) mmol/L Chloride (98-107) mmol/L Carbon Dioxide (22-30) mmol/L Anion Gap mmol/L BUN (7-17) mg/dL Creatinine (0.52-1.04) mg/dL Est GFR (CKD-EPI)AfAm (>60 ml/min/1.73 sqM) Est GFR (CKD-EPI)NonAf (>60 ml/min/1.73 sqM) Glucose (74-99) mg/dL POC Glucose (mg/dL) 41 L (70-110) mg/dL POC Glu Bulb Grader ID Jason Clemons Calcium (8.4-10.2) mg/dL Magnesium (1.6-2.3) mg/dL Total Bilirubin (0.2-1.3) mg/dL AST (14-36) U/L ALT (4-34) U/L Alkaline Phosphatase (38-126) U/L Troponin I 0.019 (0.000-0.034) ng/mL Total Protein (6.3-8.2) g/dL Albumin (3.5-5.0) g/dL TSH (0.465-4.680) mIU/L Urine Color Urine Appearance (Clear) Urine pH (5.0-8.0) Ur Specific [place] (1.001-1.035) Urine Protein (Negative) Urine Glucose (UA) (Negative) Urine Ketones (Negative) Urine Blood (Negative) Urine Nitrite (Negative) Urine Bilirubin (Negative) Urine Urobilinogen (<2.0) mg/dL Ur Leukocyte Esterase (Negative) Urine RBC (0-5) /hpf Urine WBC (0-5) /hpf Ur Squamous Epith Cells (0-4) /hpf Influenza Type A (PCR) Not Detected (Not Detectd) Influenza Type B (PCR) Not Detected (Not Detectd) RSV (PCR) Not Detected (Not Detectd) SARS-CoV-2 (PCR) Not Detected (Not Detectd) 05/24/22 05/24/22 05/24/22 Range/Units 14:05 15:07 15:08 WBC (3.8-10.6) k/uL RBC (3.80-5.40) m/uL Hgb (11.4-16.0) gm/dL Hct (34.0-46.0) % MCV (80.0-100.0) fL MCH (25.0-35.0) pg MCHC (31.0-37.0) g/dL RDW (11.5-15.5) % Plt Count (150-450) k/uL MPV Neutrophils % % Lymphocytes % % Monocytes % % Eosinophils % % Basophils % % Neutrophils # (1.3-7.7) k/uL Lymphocytes # (1.0-4.8) k/uL Monocytes # (0-1.0) k/uL Eosinophils # (0-0.7) k/uL Basophils # (0-0.2) k/uL PT (9.0-12.0) sec INR (<1.2) APTT (22.0-30.0) sec Sodium (137-145) mmol/L Potassium (3.5-5.1) mmol/L Chloride (98-107) mmol/L Carbon Dioxide (22-30) mmol/L Anion Gap mmol/L BUN (7-17) mg/dL Creatinine (0.52-1.04) mg/dL Est GFR (CKD-EPI)AfAm (>60 ml/min/1.73 sqM) Est GFR (CKD-EPI)NonAf (>60 ml/min/1.73 sqM) Glucose (74-99) mg/dL POC Glucose (mg/dL) 118 H 130 H (70-110) mg/dL POC Glu Bulb Grader JOSE Kaci Jason Gorman Lizzette Calcium (8.4-10.2) mg/dL Magnesium (1.6-2.3) mg/dL Total Bilirubin (0.2-1.3) mg/dL AST (14-36) U/L ALT (4-34) U/L Alkaline Phosphatase (38-126) U/L Troponin I (0.000-0.034) ng/mL Total Protein (6.3-8.2) g/dL Albumin (3.5-5.0) g/dL TSH (0.465-4.680) mIU/L Urine Color Light Yellow Urine Appearance Clear (Clear) Urine pH 5.5 (5.0-8.0) Ur Specific [place] 1.011 (1.001-1.035) Urine Protein 1+ H (Negative) Urine Glucose (UA) 1+ H (Negative) Urine Ketones Negative (Negative) Urine Blood Small H (Negative) Urine Nitrite Negative (Negative) Urine Bilirubin Negative (Negative) Urine Urobilinogen <2.0 (<2.0) mg/dL Ur Leukocyte Esterase Large H (Negative) Urine RBC 20 H (0-5) /hpf Urine WBC 69 H (0-5) /hpf Ur Squamous Epith Cells 1 (0-4) /hpf Influenza Type A (PCR) (Not Detectd) Influenza Type B (PCR) (Not Detectd) RSV (PCR) (Not Detectd) SARS-CoV-2 (PCR) (Not Detectd) Disposition Clinical Impression: Hypoglycemia, UTI (urinary tract infection) Disposition: HOME SELF-CARE Condition: Fair Instructions (If sedation given, give patient instructions): Urinary Tract Infection in Women (ED), Hypoglycemia in a Person with Diabetes (ED) Prescriptions: Cefpodoxime Proxetil [Vantin] 200 mg PO Q12HR 10 Days #20 tab Is patient prescribed a controlled substance at d/c from ED?: No Referrals: Danita Yarbrough MD [STAFF PHYSICIAN] - 1-2 days Time of Disposition: 16:07
[2022-05-24 13:10] LABS: Basophils # (A) 0.1 k/uL (0-0.2); Basophils % (A) 1 %; Eosinophils # (A) 0.1 k/uL (0-0.7); Eosinophils % (A) 1 %; HCT 43.8 % (34.0-46.0); HGB 13.6 gm/dL (11.4-16.0); Lymphocytes # (A) 0.8 k/uL (1.0-4.8); Lymphocytes % (A) 9 %; MCH 27.1 pg (25.0-35.0); MCHC 31.2 g/dL (31.0-37.0); MCV 86.9 fL (80.0-100.0); Mean Platelet Volume 7.9; Monocytes # (A) 0.6 k/uL (0-1.0); Monocytes % (A) 6 %; Neutrophils # (A) 7.7 k/uL (1.3-7.7); Neutrophils % (A) 83 %; Platelet Count 204 k/uL (150-450); RBC 5.04 m/uL (3.80-5.40); RDW 13.9 % (11.5-15.5); WBC 9.3 k/uL (3.8-10.6)
--- NOTE | 2022-05-24 13:17 | XR ---
EXAMINATION TYPE: XR chest 1V portable DATE OF EXAM: 05/24/2022 COMPARISON: NONE HISTORY: Weakness TECHNIQUE: Single frontal view of the chest is obtained. FINDINGS: There is no focal air space opacity, pleural effusion, or pneumothorax seen. The cardiac silhouette size is within normal limits. The osseous structures are intact. Cardiac device leads no gifty. The right clavicle. Elevated right hemidiaphragm. No overt failure. IMPRESSION: No acute process.
[2022-05-24 13:21] LABS: Albumin 4.2 g/dL (3.5-5.0); Calcium 9.4 mg/dL (8.4-10.2); Magnesium 1.3 mg/dL (1.6-2.3); Potassium 4.2 mmol/L (3.5-5.1); Total Protein 6.8 g/dL (6.3-8.2)
[2022-05-24 13:22] LABS: INR 1.1 (<1.2); Partial Thromboplastin Time 22.6 sec (22.0-30.0); Prothrombin Time 11.6 sec (9.0-12.0)
--- NOTE | 2022-05-24 13:29 | CT ---
EXAMINATION TYPE: CT brain cspine wo con CT DLP: 1707.6 mGycm, Automated exposure control for dose reduction was used. DATE OF EXAM: 05/24/2022 1:20 PM COMPARISON: 12/27/2021. CLINICAL INDICATION:Female, 76 years old with history of fall; Fall TECHNIQUE: Brain: Multiple axial CT images of the brain were obtained without IV contrast. Cspine: Axial CT images from the skull base to the inferior aspect of T2 we obtained without intraven ous contrast. Coronal and sagittal reformatted images were also reviewed. FINDINGS: Brain: Extra-axial spaces: No abnormal extra-axial fluid collections. Ventricular system: Dilatation in proportion to cerebral atrophy. Cerebral parenchyma: Cerebral atrophy. No acute intraparenchymal hemorrhage or mass effect. The rajan -white junction is well differentiated. Scattered hypoattenuating areas are seen within the white mat ter. Cerebellum: Unremarkable. Mass effect: No evidence of midline shift. Intracranial vasculature: unremarkable Soft tissues: Normal. Calvarium/osseous structures: No depressed skull fracture. Paranasal sinuses and mastoid air cells: Mild scattered mucosal thickening and or secretions. Visualized orbits: Bilateral aphakia Cervical spine: Fracture: None. Osseous structures: Multilevel degenerative disc disease changes with endplate spurring and disc oste ophyte complex's. Vertebral alignment: Within normal limits. Spinal canal/Neural Foramina: Disc osteophyte complexes at C5-C6 and C6-C7 with at least mild spinal canal stenosis. No evidence for significant neural foraminal stenosis. Neck soft tissues: Prevertebral soft tissues are within normal limits. Other: The airway is patent. The lung apices are clear. Cardiac conduction leads are partially visual ized. Atherosclerosis of the carotid bifurcations. IMPRESSION: 1. No acute intracranial process. 2. Nonspecific white matter changes, likely secondary to chronic small vessel ischemic disease. 3. No evidence of cervical spine fracture. 4. Mild multilevel degenerative disc disease.
[2022-05-24 13:46] LABS: Glucose,Whole Blood 41 mg/dL (70-110)
[2022-05-24 14:07] LABS: Glucose,Whole Blood 118 mg/dL (70-110)
[2022-05-24 15:11] LABS: Glucose,Whole Blood 130 mg/dL (70-110)
[2022-05-24 15:38] LABS: Appearance,Urine Clear (Clear); Bilirubin,Urine Negative (Negative); Blood,Urine Small (Negative); Color,Urine Light Yellow; Glucose,Urine (UA) 1+ (Negative); Ketones,Urine Negative (Negative); Leukocyte Esterase,Urine Large (Negative); Nitrite,Urine Negative (Negative); PH, Urine 5.5 (5.0-8.0); Protein,Urine 1+ (Negative); RBC,Urine 20 /hpf (0-5); Specific Gravity,Urine 1.011 (1.001-1.035); Squamous Epithelial Cell,Urine 1 /hpf (0-4); Urobilinogen,Urine <2.0 mg/dL (<2.0); WBC,Urine 69 /hpf (0-5)
[2022-05-24] MEDS ORDERED: cefTRIAXone IN SWFI 1,000 MG/10 ML SYRINGE IVP STA (15:42)
[2022-05-24 16:22] VITALS: BP 166/74; PULSE 60; RESP 20; TEMP 98.3
== END 2022-05-24 16:39 | disposition home or self-care (01) ==
LOC: EC 11:54
DX: E16.2 Hypoglycemia, unspecified (principal); N39.0 Urinary tract infection, site not specified; I48.91 Unspecified atrial fibrillation; E11.9 Type 2 diabetes mellitus without complications; E78.5 Hyperlipidemia, unspecified; I10 Essential (primary) hypertension; Z88.0 Allergy status to penicillin; Z88.2 Allergy status to sulfonamides; Z88.5 Allergy status to narcotic agent; Z88.1 Allergy status to other antibiotic agents; Z79.890 Hormone replacement therapy; Z79.84 Long term (current) use of oral hypoglycemic drugs; Z79.899 Other long term (current) drug therapy; Z20.822 Contact with and (suspected) exposure to COVID-19
CPT/HCPCS: 36415; 70450; 71045; 72125; 80053; 81001; 83735; 84443; 84484; 85025; 85610; 85730; 87636; 93005; 96374; 99285

== ENCOUNTER 2023-06-07 10:15 | Inpatient (IN) | payer MEDICARE ==
[2023-06-07] MEDS ORDERED: SODIUM CHLORIDE 0.9% 1,000 ML IV ONE (10:37)
--- NOTE | 2023-06-07 11:29 | XR ---
EXAMINATION TYPE: XR chest 2V DATE OF EXAM: 06/07/2023 COMPARISON: 05/24/2022 TECHNIQUE: PA and lateral views submitted. HISTORY: Altered mental status FINDINGS: The lungs are clear and there is no pneumothorax, pleural effusion, or focal pneumonia. Heart size normal and no overt failure. Osseous structures demonstrate hypertrophic and degenerative changes of the spine. Limited inspiration with dual lead cardiac device. Chronic forming of the right clavicle w ith bilateral AC joint arthropathy. Hyperinflation suggests COPD. IMPRESSION: 1. No acute process.
--- NOTE | 2023-06-07 11:54 | CT ---
EXAMINATION TYPE: CT brain wo con DATE OF EXAM: 06/07/2023 COMPARISON: 05/24/2022, 12/27/2021 HISTORY: AMS CT DLP: 1130.4 mGycm Automated exposure control for dose reduction was used. FINDINGS: There is extreme artifact involving the posterior fossa resulted in nondiagnostic assessment of the p osterior fossa. Remaining brain parenchyma demonstrates mild to moderate generalized degenerative change. Focal area of low attenuation in the right frontal lobe is compatible with remote ischemic white matter change. No midline shift or mass effect. No acute hemorrhage. Changes of chronic sinusitis. Orbits are symmet hardy. IMPRESSION: DEGENERATIVE AND REMOTE ISCHEMIC CHANGE WITH NO DEFINITE ACUTE HEMORRHAGE OR MASS EFFECT.
[2023-06-07 12:51] LABS: Basophils # (A) 0.1 k/uL (0-0.2); Basophils % (A) 0 %; Eosinophils % (A) 0 %; HCT 38.9 % (34.0-46.0); HGB 12.6 gm/dL (11.4-16.0); Lymphocytes # (A) 0.7 k/uL (1.0-4.8); Lymphocytes % (A) 5 %; MCH 26.9 pg (25.0-35.0); MCHC 32.4 g/dL (31.0-37.0); MCV 82.9 fL (80.0-100.0); Mean Platelet Volume 7.6; Monocytes # (A) 0.8 k/uL (0-1.0); Monocytes % (A) 6 %; Neutrophils # (A) 11.6 k/uL (1.3-7.7); Neutrophils % (A) 87 %; Platelet Count 274 k/uL (150-450); RBC 4.69 m/uL (3.80-5.40); RDW 14.5 % (11.5-15.5); WBC 13.3 k/uL (3.8-10.6)
[2023-06-07 12:57] LABS: INR 1.1 (<1.2); Partial Thromboplastin Time 22.8 sec (22.0-30.0); Prothrombin Time 11.2 sec (9.0-12.0)
[2023-06-07 13:02] LABS: ALT 18 U/L (4-34); AST 35 U/L (14-36); African American GFR (CKD) 44 (>60 ml/min/1.73 sqM); Albumin 3.8 g/dL (3.5-5.0); Alcohol <10 mg/dL; Alkaline Phosphatase 75 U/L (38-126); Anion Gap 10 mmol/L; Blood Urea Nitrogen 42 mg/dL (7-17); Carbon Dioxide 24 mmol/L (22-30); Chloride 104 mmol/L (98-107); Glucose 198 mg/dL (74-99); Non-African American GFR(CKD) 38 (>60 ml/min/1.73 sqM); Potassium 4.6 mmol/L (3.5-5.1); Sodium 138 mmol/L (137-145); Total Protein 7.1 g/dL (6.3-8.2)
[2023-06-07] MEDS ORDERED: ONDANSETRON 4 MG/2 ML VIAL IVP PRN (13:42)
[2023-06-07] MEDS ORDERED: NALOXONE 0.4 MG/ML 1 ML VIAL IV PRN (13:42)
[2023-06-07] MEDS: SODIUM CHLORIDE 0.9% 1,000 ML IV SCH (14:16)
--- NOTE | 2023-06-07 14:52 | ED ---
General Adult HPI - General Chief complaint: Altered Mental Status Stated complaint: Altered Mental Status Time Seen by Provider: 06/07/23 10:33 Source: family, EMS, RN notes reviewed Mode of arrival: EMS Limitations: altered mental status, physical limitation - History of Present Illness Initial comments: Patient is a 77-year-old female with who presents emergency Department complaining of altered mental status. Unknown last known well. Patient cannot adequately answer questions. She is alert and oriented 2, confused to time. Has no acute complaints. Was found by meals on wheels at approximately 0930 this morning. Patient's friend and contact is the only reliable family were able to find who is not seen the patient on at least one week. Unknown last known well. Presents for further evaluation. - Related Data Home Medications Medication Instructions Recorded Confirmed Levothyroxine Sodium [Synthroid] 88 mcg PO DAILY 12/27/21 06/07/23 Losartan [Cozaar] 50 mg PO DAILY 12/27/21 06/07/23 Metoprolol Succinate (ER) [Toprol 50 mg PO BID 05/24/22 06/07/23 XL] glipiZIDE XL [Glucotrol Xl] 10 mg PO DAILY 05/24/22 06/07/23 levETIRAcetam [Keppra] 500 mg PO BID 05/24/22 06/07/23 metFORMIN HCL [Glucophage] 500 mg PO BID-W/MEALS 05/24/22 06/07/23 Desonide [Zac-Tay 0.05%] 1 applic TOPICAL BID PRN 06/07/23 06/07/23 Allergies Allergy/AdvReac Type Severity Reaction Status Date / Time Penicillins Allergy Itching Verified 06/07/23 10:48 Sulfa (Sulfonamide Allergy Unknown Verified 06/07/23 10:48 Antibiotics) codeine AdvReac Unknown Verified 06/07/23 10:48 all antibiotics Allergy Rash/Hives Uncoded 06/07/23 10:48 Review of Systems ROS Statement: Those systems with pertinent positive or pertinent negative responses have been documented in the HPI. ROS Other: All systems not noted in ROS Statement are negative. Past Medical History Past Medical History: Atrial Fibrillation, Diabetes Mellitus, Hyperlipidemia, Hypertension, Sleep Apnea/CPAP/BIPAP History of Any Multi-Drug Resistant Organisms: None Reported Additional Past Surgical History / Comment(s): cataract, eye surgeries, D&C, ankle surgery to repair fracture,retinal Hemorrhage surgeries in both eyes,colonoscopy. Past Anesthesia/Blood Transfusion Reactions: No Reported Reaction, Motion Sickn ess Past Psychological History: No Psychological Hx Reported, Depression Smoking Status: Never smoker Past Alcohol Use History: Rare Past Drug Use History: None Reported - Past Family History Mother Family Medical History: Vascular Disorder Father Family Medical History: Cancer General Exam Limitations: altered mental status, physical limitation Course Vital Signs 06/07/23 06/07/23 10:26 12:00 Temperature 97.5 F L Pulse Rate 59 L 50 L Respiratory 20 17 Rate Blood Pressure 150/71 119/66 O2 Sat by Pulse 98 Oximetry Medical Decision Making - Medical Decision Making Was pt. sent in by a medical professional or institution (, PA, PIN MACHINE OPERATOR, urgent care, hospital, or fdc...) When possible be specific @ -No Did you speak to anyone other than the patient for history (EMS, parent, family, police, friend...)? What history was obtained from this source @ -Spoke with the patient's friend who is at bedside who has not seen the patient and at least one week. This is below her baseline mental status. Baseline is alert and oriented 3. Did you review nursing and triage notes (agree or disagree)? Why? @ -I reviewed and agree with nursing and triage notes Were old charts reviewed (outside hosp., previous admission, EMS record, old EKG, old radiological studies, urgent care reports/EKG's, fdc records)? Report findings @ -Old charts reviewed Differential Diagnosis (chest pain, altered mental status, abdominal pain women, abdominal pain men, vaginal bleeding, weakness, fever, dyspnea, syncope, headache, dizziness, GI bleed, back pain, seizure, CVA, palpatations, mental health, musculoskeletal)? @ -Differential Altered Mental Status: Hypoglycemia, DKA, hypercapnia, ETOH, overdose, CO poisoning, trauma, myxedema coma, HTN encephalopathy, infection, encephalitis, psychosis, intercranial hemorrhage, hepatic encephalopathy, meningitis, CVA, this is not meant to be an all-inclusive list EKG interpreted by me (3pts min.). @ -As above X-rays interpreted by me (1pt min.). @ -Chest x-ray reveals no obvious acute cardio pulmonary process. CT interpreted by me (1pt min.). @ -CT brain reveals no obvious acute intracranial process or injury. U/S interpreted by me (1pt. min.). @ -None done What testing was considered but not performed or refused? (CT, X-rays, U/S, labs)? Why? @ -None What meds were considered but not given or refused? Why? @ -None Did you discuss the management of the patient with other professionals (professionals i.e. DrJacob, PA, PIN MACHINE OPERATOR, lab, RT, psych nurse, social scientist, slot key person, teacher, disabilities services officer, leather case finisher)? Give summary @ -Discuss the case with Dr. mcdaniels who accepted the admission. Was smoking cessation discussed for >3mins.? @ -No Was critical care preformed (if so, how long)? @ -No Were there social determinants of health that impacted care today? How? (Homelessness, low income, unemployed, alcoholism, drug addiction, transportation, low edu. Level, literacy, decrease access to med. care, nursing home, rehab)? @ -No Was there de-escalation of care discussed even if they declined (Discuss DNR or withdrawal of care, Hospice)? DNR status @ -No What co-morbidities impacted this encounter? (DM, HTN, Smoking, COPD, CAD, Cancer, CVA, ARF, Chemo, Hep., AIDS, mental health diagnosis, sleep apnea, morbid obesity)? @ -None Was patient admitted / discharged? Hospital course, mention meds given and route, prescriptions, significant lab abnormalities, going to OR and other pertinent info. @ -Based on patient's presentation and physical exam, presents with altered mental status. Appears dehydrated on exam. Cannot provide any history and is no acute complaints at this time. Presents for further evaluation. Vital signs within acceptable limits. Patient will receive IV fluids and we will obtain altered mental status workup. EKG showed no signs of acute ischemia. Imaging including CT brain unremarkable for any acute process. Labs remarkable for CRISTOFER as well as a leukocytosis of unknown significance at 13.3. Remainder the labs within acceptable limits. Urine is still pending. Patient remains somewhat altered still. I recommended admission. The remainder agreement with this plan. Spoke with the admitting physician, Dr. mcdaniels who accepted the admission. Undiagnosed new problem with uncertain prognosis? @ -No Drug Therapy requiring intensive monitoring for toxicity (Heparin, Nitro, Insulin, Cardizem)? @ -No Were any procedures done? @ -No Diagnosis/symptom? @ -Altered mental status of unknown etiology Acute, or Chronic, or Acute on Chronic? @ -Acute Uncomplicated (without systemic symptoms) or Complicated (systemic symptoms)? @ -Complicated Side effects of treatment? @ -No Exacerbation, Progression, or Severe Exacerbation? @ -No Poses a threat to life or bodily function? How? (Chest pain, [place], [place], pneumonia, PE, COPD, DKA, ARF, appy, cholecystitis, CVA, Diverticulitis, Homicidal, Suicidal, threat to staff... and all critical care pts) @ -Yes Diagnosis/symptom? @ -Dehydration, CRISTOFER Acute, or Chronic, or Acute on Chronic? @ -Acute Uncomplicated (without systemic symptoms) or Complicated (systemic symptoms)? @ -Complicated Side effects of treatment? @ -none Exacerbation, Progression, or Severe Exacerbation] @ -no Poses a threat to life or bodily function? @ -Yes - Lab Data Result diagrams: 06/07/23 12:34 06/07/23 12:34 Lab Results 06/07/23 06/07/23 06/07/23 Range/Units 12:34 12:34 12:34 WBC 13.3 H (3.8-10.6) k/uL RBC 4.69 (3.80-5.40) m/uL Hgb 12.6 (11.4-16.0) gm/dL Hct 38.9 (34.0-46.0) % MCV 82.9 (80.0-100.0) fL MCH 26.9 (25.0-35.0) pg MCHC 32.4 (31.0-37.0) g/dL RDW 14.5 (11.5-15.5) % Plt Count 274 (150-450) k/uL MPV 7.6 Neutrophils % 87 % Lymphocytes % 5 % Monocytes % 6 % Eosinophils % 0 % Basophils % 0 % Neutrophils # 11.6 H (1.3-7.7) k/uL Lymphocytes # 0.7 L (1.0-4.8) k/uL Monocytes # 0.8 (0-1.0) k/uL Eosinophils # 0.0 (0-0.7) k/uL Basophils # 0.1 (0-0.2) k/uL PT 11.2 (9.0-12.0) sec INR 1.1 (<1.2) APTT 22.8 (22.0-30.0) sec Sodium 138 (137-145) mmol/L Potassium 4.6 (3.5-5.1) mmol/L Chloride 104 (98-107) mmol/L Carbon Dioxide 24 (22-30) mmol/L Anion Gap 10 mmol/L BUN 42 H (7-17) mg/dL Creatinine 1.34 H (0.52-1.04) mg/dL Est GFR (CKD-EPI)AfAm 44 (>60 ml/min/1.73 sqM) Est GFR (CKD-EPI)NonAf 38 (>60 ml/min/1.73 sqM) Glucose 198 H (74-99) mg/dL Calcium 10.0 (8.4-10.2) mg/dL Total Bilirubin 1.0 (0.2-1.3) mg/dL AST 35 (14-36) U/L ALT 18 (4-34) U/L Alkaline Phosphatase 75 (38-126) U/L Ammonia (<30) umol/L Troponin I (0.000-0.034) ng/mL Total Protein 7.1 (6.3-8.2) g/dL Albumin 3.8 (3.5-5.0) g/dL Serum Alcohol <10 mg/dL Influenza Type A (PCR) (Not Detectd) Influenza Type B (PCR) (Not Detectd) RSV (PCR) (Not Detectd) SARS-CoV-2 (PCR) (Not Detectd) 06/07/23 06/07/23 06/07/23 Range/Units 12:34 12:34 12:34 WBC (3.8-10.6) k/uL RBC (3.80-5.40) m/uL Hgb (11.4-16.0) gm/dL Hct (34.0-46.0) % MCV (80.0-100.0) fL MCH (25.0-35.0) pg MCHC (31.0-37.0) g/dL RDW (11.5-15.5) % Plt Count (150-450) k/uL MPV Neutrophils % % Lymphocytes % % Monocytes % % Eosinophils % % Basophils % % Neutrophils # (1.3-7.7) k/uL Lymphocytes # (1.0-4.8) k/uL Monocytes # (0-1.0) k/uL Eosinophils # (0-0.7) k/uL Basophils # (0-0.2) k/uL PT (9.0-12.0) sec INR (<1.2) APTT (22.0-30.0) sec Sodium (137-145) mmol/L Potassium (3.5-5.1) mmol/L Chloride (98-107) mmol/L Carbon Dioxide (22-30) mmol/L Anion Gap mmol/L BUN (7-17) mg/dL Creatinine (0.52-1.04) mg/dL Est GFR (CKD-EPI)AfAm (>60 ml/min/1.73 sqM) Est GFR (CKD-EPI)NonAf (>60 ml/min/1.73 sqM) Glucose (74-99) mg/dL Calcium (8.4-10.2) mg/dL Total Bilirubin (0.2-1.3) mg/dL AST (14-36) U/L ALT (4-34) U/L Alkaline Phosphatase (38-126) U/L Ammonia <9 (<30) umol/L Troponin I 0.033 (0.000-0.034) ng/mL Total Protein (6.3-8.2) g/dL Albumin (3.5-5.0) g/dL Serum Alcohol mg/dL Influenza Type A (PCR) Not Detected (Not Detectd) Influenza Type B (PCR) Not Detected (Not Detectd) RSV (PCR) Not Detected (Not Detectd) SARS-CoV-2 (PCR) Not Detected (Not Detectd) - EKG Data -: EKG Interpreted by Me EKG Comments: 12-lead Electrocardiogram Interpretation Note EKG was reviewed and interpreted by myself. 12-lead ECG performed at 1026 is interpreted by me as revealing A. fib with intermittently paced rhythm at a rate of 55 beats per minute. [place] is normal. QRS duration is 94 ms, QTc is 444 ms. Chronic T-wave inversions seen in II. No acute T-wave inversion seen in the III and aVF however it is paced rhythm. R wave progression across the precordium was satisfactory. By my interpretation this EKG is non-diagnostic for acute is chemia. Disposition Clinical Impression: Altered mental status, CRISTOFER (acute kidney injury), Dehydration Disposition: ADMITTED IP TO THIS HOSP Condition: Stable Referrals: Sinan Alston MD [Primary Care Provider] - 1-2 days Time of Disposition: 13:30
[2023-06-07 15:26] LABS: Appearance,Urine Cloudy (Clear); Bilirubin,Urine Negative (Negative); Blood,Urine Small (Negative); Color,Urine Yellow; Glucose,Urine (UA) 2+ (Negative); Hyaline Casts,Urine 1 /lpf (0-2); Ketones,Urine 1+ (Negative); Leukocyte Esterase,Urine Negative (Negative); Mucus,Urine Occasional /hpf; Nitrite,Urine Negative (Negative); Protein,Urine 1+ (Negative); RBC,Urine 4 /hpf (0-5); Specific Gravity,Urine 1.026 (1.001-1.035); Squamous Epithelial Cell,Urine 3 /hpf (0-4); Urobilinogen,Urine <2.0 mg/dL (<2.0); WBC,Urine 3 /hpf (0-5)
[2023-06-07 15:52] LABS: Amphetamine Screen,Urine Not Detected (NotDetected); Barbiturate Screen,Urine Not Detected (NotDetected); Benzodiazepines Screen,Urine Not Detected (NotDetected); Cocaine Screen,Urine Not Detected (NotDetected); Methadone Screen, Urine Not Detected (NotDetected); Opiate Screen,Urine Not Detected (NotDetected); Oxycodone Screen, Urine Not Detected (NotDetected); Phencyclidine Screen,Urine Not Detected (NotDetected); Tricyclic Antidepressant,Urine Not Detected (NotDetected); Urn Cannabinoid Scrn Not Detected (NotDetected)
[2023-06-07 20:29] LABS: Glucose,Whole Blood 141 mg/dL (70-110)
[2023-06-07] MEDS ORDERED: DEXTROSE 50% SYRINGE 50 ML IVP PRN ×2 (21:35)
--- NOTE | 2023-06-07 21:49 | P.HPIM ---
History of Present Illness This is a pleasant 77 years old female with past medical history of Atrial Fibrillation, Diabetes Mellitus, Hyperlipidemia, Hypertension, Sleep Apnea/CPAP/BIPAP Patient is seen in the emergency room, she was lying in bed awake and looking mainly to the left side When asking the patient any question she answers with her for number for example and ask her about her name, orientation questions or her symptoms are because of presentation she just answered by given her no phone number. She does not follow commands appropriately and it looks that she has increased on on the right side with some flexion deformity. No further information could be obtained from the patient. No family at bedside. Temperature 97.5, heart rate 50, blood pressure is within the reference range She had mild leukocytosis of 13.3. Rest of CBC is unremarkable. INR is 1.1. Creatinine is elevated at 1.34 which is close to baseline of 1.0-1.2 Liver enzymes not elevated. Ammonia less than 9. Troponin negative. Serum alcohol less than 10. Viruses undetected including influenza and RSV CT of the brain: Degenerative and remote ischemic changes with no definitive acute process Patient is started on normal saline in the emergency room and the neurologist consulted Review of Systems ROS unobtainable: due to mental status Past Medical History Past Medical History: Atrial Fibrillation, Diabetes Mellitus, Hyperlipidemia, Hypertension, Sleep Apnea/CPAP/BIPAP History of Any Multi-Drug Resistant Organisms: None Reported Additional Past Surgical History / Comment(s): cataract, eye surgeries, D&C, ankle surgery to repair fracture,retinal Hemorrhage surgeries in both eyes,colonoscopy. Past Anesthesia/Blood Transfusion Reactions: No Reported Reaction, Motion Sickne ss Past Psychological History: No Psychological Hx Reported, Depression Smoking Status: Never smoker Past Alcohol Use History: Rare Past Drug Use History: None Reported - Past Family History Mother Family Medical History: Vascular Disorder Father Family Medical History: Cancer Medications and Allergies Home Medications Medication Instructions Recorded Confirmed Type Levothyroxine Sodium [Synthroid] 88 mcg PO DAILY 12/27/21 06/07/23 History Losartan [Cozaar] 50 mg PO DAILY 12/27/21 06/07/23 History Metoprolol Succinate (ER) [Toprol 50 mg PO BID 05/24/22 06/07/23 History XL] glipiZIDE XL [Glucotrol Xl] 10 mg PO DAILY 05/24/22 06/07/23 History levETIRAcetam [Keppra] 500 mg PO BID 05/24/22 06/07/23 History metFORMIN HCL [Glucophage] 500 mg PO BID-W/MEALS 05/24/22 06/07/23 History Desonide [Zac-Tay 0.05%] 1 applic TOPICAL BID PRN 06/07/23 06/07/23 History Allergies Allergy/AdvReac Type Severity Reaction Status Date / Time Penicillins Allergy Itching Verified 06/07/23 10:48 Sulfa (Sulfonamide Allergy Unknown Verified 06/07/23 10:48 Antibiotics) codeine AdvReac Unknown Verified 06/07/23 10:48 all antibiotics Allergy Rash/Hives Uncoded 06/07/23 10:48 Physical Exam Vitals: Vital Signs Temp Pulse Resp BP Pulse Ox 06/07/23 12:00 50 L 17 119/66 06/07/23 10:26 97.5 F L 59 L 20 150/71 98 Intake and Output 06/06/23 06/07/23 06/07/23 22:59 06:59 14:59 Other: Weight 74.843 kg -GENERAL: The patient is confused, mainly looks into the left side, does not follow command, does not answer questions "she answers only with her phone number" HEENT: Pupils are round and equally reacting to light. EOMI. No scleral icterus. No conjunctival pallor. Normocephalic, atraumatic. No pharyngeal erythema. No thyromegaly. CARDIOVASCULAR: S1 and S2 present. No murmurs, rubs, or gallops. PULMONARY: Chest is clear to auscultation, no wheezing , no crackles. ABDOMEN: Soft, nontender, nondistended, normoactive bowel sounds. No palpable organomegaly. MUSCULOSKELETAL: No joint swelling or deformity. EXTREMITIES: No cyanosis, clubbing, or pedal edema. -EUROLOGICAL: pt is looking mainly to the left side, she anweres only with her phone number, right upper and lower ext : increased tone, (exam is limited by pt change in mental status)- SKIN: No rashes. no petechiae. Results CBC & Chem 7: 06/07/23 12:34 06/07/23 12:34 Labs: Abnormal Lab Results - Last 24 Hours (Table) 06/07/23 06/07/23 Range/Units 12:34 12:34 WBC 13.3 H (3.8-10.6) k/uL Neutrophils # 11.6 H (1.3-7.7) k/uL Lymphocytes # 0.7 L (1.0-4.8) k/uL BUN 42 H (7-17) mg/dL Creatinine 1.34 H (0.52-1.04) mg/dL Glucose 198 H (74-99) mg/dL Assessment and Plan Assessment: Altered mental status with possible left gaze fixation with possible right hemiparesis Rule out intracranial causes mild acute kidney injury Chronic atrial fibrillation with bradycardia on admission, Status post pacemaker chronic kidney disease stage III Hypertension Hyperlipidemia History of sleep apnea Diabetes mellitus Plan: Continue with a neuro check Continue telemetry monitoring Neurology consult Check TSH B12 and hemoglobin A1c Continue with insulin sliding scale Resume Keppra Hold metoprolol given her bradycardia WBC is mildly elevated but looks concentrated sample as hemoglobin and a platelet count are more than baseline. We'll give IV hydration and reassess Sent for blood culture. Check pro-calcitonin Check bladder scan and send urine analysis and urine drug screen Labs and medication were reviewed.. Continue same treatment. Continue with symptomatic treatment. Resume home medication. Monitor labs and vitals. DVT and GI prophylaxis. Further recommendations as per clinical course of the patient DVT prophylaxis: Subcutaneous heparin GI Prophylaxis: Pepcid PT/OT: Pending Prognosis is guarded
[2023-06-07] MEDS: levETIRAcetam IV 500 MG/5 ML VIAL IVP SCH (22:21)
[2023-06-08] MEDS: SODIUM CHLORIDE 0.9% 1,000 ML IV SCH (03:22)
[2023-06-08] MEDS ORDERED: ASPIRIN 300 MG SUPP RECTAL STA (06:47)
--- NOTE | 2023-06-08 06:49 | P.PN ---
Subjective This is a pleasant 77 years old female with past medical history of Atrial Fibrillation, Diabetes Mellitus, Hyperlipidemia, Hypertension, Sleep Apnea/CPAP/BIPAP Patient is seen in the emergency room, she was lying in bed awake and looking mainly to the left side When asking the patient any question she answers with her for number for example and ask her about her name, orientation questions or her symptoms are because of presentation she just answered by given her no phone number. She does not follow commands appropriately and it looks that she has increased on on the right side with some flexion deformity. No further information could be obtained from the patient. No family at bedside. Temperature 97.5, heart rate 50, blood pressure is within the reference range She had mild leukocytosis of 13.3. Rest of CBC is unremarkable. INR is 1.1. Creatinine is elevated at 1.34 which is close to baseline of 1.0-1.2 Liver enzymes not elevated. Ammonia less than 9. Troponin negative. Serum alcohol less than 10. Viruses undetected including influenza and RSV CT of the brain: Degenerative and remote ischemic changes with no definitive acute process Patient is started on normal saline in the emergency room and the neurologist consulted 06/08/2030 Patient still confused, she does not follow command, she is not answer questions appropriately, she mumbles Right-sided weakness Patient is a known case of atrial fibrillation and on reviewing the notes from 12/27/2021 that looks like the patient was started on liquids but she started having issues with blood in the urine as well as a history of retinal hemorrhage so she decided not to take her Eliquis. Last year she fell and she had the total disorientation and slurred speech. At that time she had persistent atrial fibrillation with bradycardia and pauses and declining to take oral anticoagulation. Patient has bradycardia with heart rate 49-51. Metoprolol 50 mg is put on hold if heart rate improve we may start the metoprolol at lower dose. Blood pressure slightly elevated at 186/74. Objective - Vital Signs Vital signs: Vital Signs Temp 97.5 F L 06/07/23 10:26 Pulse 50 L 06/08/23 06:28 Resp 19 06/08/23 06:28 BP 186/74 06/08/23 06:28 Pulse Ox 98 06/08/23 06:28 FiO2 Intake & Output 06/07/23 06/07/23 06/08/23 06:59 18:59 06:59 Weight 74.843 kg - Exam GENERAL: The patient is confused , no follow commands, not answering question,, not in any acute distress. Well developed, well nourished. HEENT: Pupils are round and equally reacting to light. EOMI. No scleral icterus. No conjunctival pallor. Normocephalic, atraumatic. No pharyngeal erythema. No thyromegaly. CARDIOVASCULAR: S1 and S2 present. No murmurs, rubs, or gallops. PULMONARY: Chest is clear to auscultation, no wheezing , no crackles. ABDOMEN: Soft, nontender, nondistended, normoactive bowel sounds. No palpable organomegaly. MUSCULOSKELETAL: No joint swelling or deformity. EXTREMITIES: No cyanosis, clubbing, or pedal edema. -NEUROLOGICAL: right hemiparensis with increased tone, exam is limited by the pt condition. SKIN: No rashes. no petechiae. - Labs CBC & Chem 7: 06/07/23 12:34 06/07/23 12:34 Labs: Abnormal Lab Results - Last 24 Hours (Table) 06/07/23 06/07/23 06/07/23 Range/Units 12:34 12:34 15:11 WBC 13.3 H (3.8-10.6) k/uL Neutrophils # 11.6 H (1.3-7.7) k/uL Lymphocytes # 0.7 L (1.0-4.8) k/uL BUN 42 H (7-17) mg/dL Creatinine 1.34 H (0.52-1.04) mg/dL Glucose 198 H (74-99) mg/dL POC Glucose (mg/dL) (70-110) mg/dL Urine Appearance Cloudy H (Clear) Urine Protein 1+ H (Negative) Urine Glucose (UA) 2+ H (Negative) Urine Ketones 1+ H (Negative) Urine Blood Small H (Negative) Urine Mucus Occasional H (None) /hpf 06/07/23 Range/Units 20:28 WBC (3.8-10.6) k/uL Neutrophils # (1.3-7.7) k/uL Lymphocytes # (1.0-4.8) k/uL BUN (7-17) mg/dL Creatinine (0.52-1.04) mg/dL Glucose (74-99) mg/dL POC Glucose (mg/dL) 141 H (70-110) mg/dL Urine Appearance (Clear) Urine Protein (Negative) Urine Glucose (UA) (Negative) Urine Ketones (Negative) Urine Blood (Negative) Urine Mucus (None) /hpf Assessment and Plan Assessment: Altered mental status with possible left gaze fixation with possible right hemiparesis Rule out intracranial causes mild acute kidney injury Chronic atrial fibrillation with bradycardia on admission, Status post pacemaker. Previously patient declined to take anticoagulation non adherence to treatment history of seizure on Keppra chronic kidney disease stage III Hypertension, permissive hypertension for 24-48 hours Hyperlipidemia History of sleep apnea Diabetes mellitus Plan: Continue with a neuro check aspirin Continue telemetry monitoring Neurology consult Check TSH B12 and hemoglobin A1c Continue with insulin sliding scale Resume Keppra Hold metoprolol given her bradycardia WBC is mildly elevated but looks concentrated sample as hemoglobin and a platelet count are more than baseline. We'll give IV hydration and reassess Sent for blood culture. Check pro-calcitonin Check bladder scan and send urine analysis and urine drug screen Labs and medication were reviewed.. Continue same treatment. Continue with symptomatic treatment. Resume home medication. Monitor labs and vitals. DVT and GI prophylaxis. Further recommendations as per clinical course of the patient DVT prophylaxis: Subcutaneous heparin GI Prophylaxis: Pepcid PT/OT: Pending Prognosis is guarded
[2023-06-08 08:02] LABS: Glucose,Whole Blood 139 mg/dL (70-110)
[2023-06-08] MEDS: INSULIN ASPART (NovoLOG) 100 UNIT/ML VIAL SQ SCH ×4 (08:02→21:00)
[2023-06-08] MEDS: levETIRAcetam IV 500 MG/5 ML VIAL IVP SCH ×2 (08:23→21:11)
[2023-06-08] MEDS: DEXTROSE 5%-0.9% NACL 1,000 ML IV SCH ×2 (08:23→21:10)
[2023-06-08] MEDS: LEVOTHYROXINE IVP 100 MCG/5 ML VIAL IV SCH (08:39)
[2023-06-08] MEDS: ASPIRIN 300 MG SUPP RECTAL SCH (08:39)
[2023-06-08] MEDS ORDERED: FAMOTIDINE 20 MG/2 ML VIAL IV SCH (09:00)
[2023-06-08 13:10] LABS: Glucose,Whole Blood 139 mg/dL (70-110)
--- NOTE | 2023-06-08 15:06 | P.CNNES ---
History of Present Illness Consult date: 06/08/23 Requesting physician: Teto Edmondson Reason for Consult: altered mental status History of Present Illness: This is a 77-year-old woman with history of stroke who presented emergency department consulted mental status. Patient's cousins at bedside in but she is a poor historian. According to the cousin she stated that the patient resides by herself and usually at 10 has normal conversation and walks usually walks w ith a cane or walker and unknown last normal state. She denies that the patient has any history of seizures to her knowledge. Per the ED note it stated that the patient is complaining of altered mental status unknown last normal and the she is alert oriented times to confused to time. It seems that the patient is on Keppra 500 mg 1 tablet twice a day and is on diabetes, Synthroid, a beta yaakov as a her home medication. As stated earlier according to the cousin, patient does not have history of seizure that she recalls. Per the nurse she was not verbally responding to questions appropriately. Some of the workup during his hospital visit consisted of: Only temperature recorded as 97.5 Fahrenheit Her blood pressure has a been elevated and got as high as 180 systolic and diastolic is 7680s. Her heart rate has been in the range of 40s to 60s was recent. According to the nurse per the monitor it goes as well as 10's and unsure if it is truly the as well as 10's vs issue with monitor. Initial white blood cells 13.3 and it's mildly neutrophilic Sodium is 1:30, calcium 7.0, AST ALT and ammonia level is within normal limits. Ammonia level is less than 9 Glucose serum was 198. BUN is 42 and creatinine is 1.34. CT of the head is reported as degenerative and remote ischemic change with the definite of acute hemorrhage or mass effect. EKG is reported as atrial fibrillation with slow ventricular response. ST and deviation and moderate ST wave abnormality. Consider inferior ischemia. Review of Systems Limited but the positive and negative as per HPI. Past Medical History Past Medical History: Atrial Fibrillation, Diabetes Mellitus, Hyperlipidemia, Hypertension, Sleep Apnea/CPAP/BIPAP History of Any Multi-Drug Resistant Organisms: None Reported Additional Past Surgical History / Comment(s): cataract, eye surgeries, D&C, ankle surgery to repair fracture,retinal Hemorrhage surgeries in both eyes,colonoscopy. Past Anesthesia/Blood Transfusion Reactions: No Reported Reaction, Motion Sickness Past Psychological History: No Psychological Hx Reported, Depression Smoking Status: Never smoker Past Alcohol Use History: Rare Past Drug Use History: None Reported - Past Family History Mother Family Medical History: Vascular Disorder Father Family Medical History: Cancer Medications and Allergies Home Medications Medication Instructions Recorded Confirmed Type Levothyroxine Sodium [Synthroid] 88 mcg PO DAILY 12/27/21 06/07/23 History Losartan [Cozaar] 50 mg PO DAILY 12/27/21 06/07/23 History Metoprolol Succinate (ER) [Toprol 50 mg PO BID 05/24/22 06/07/23 History XL] glipiZIDE XL [Glucotrol Xl] 10 mg PO DAILY 05/24/22 06/07/23 History levETIRAcetam [Keppra] 500 mg PO BID 05/24/22 06/07/23 History metFORMIN HCL [Glucophage] 500 mg PO BID-W/MEALS 05/24/22 06/07/23 History Desonide [Zac-Tay 0.05%] 1 applic TOPICAL BID PRN 06/07/23 06/07/23 History Allergies Allergy/AdvReac Type Severity Reaction Status Date / Time Penicillins Allergy Itching Verified 06/07/23 10:48 Sulfa (Sulfonamide Allergy Unknown Verified 06/07/23 10:48 Antibiotics) codeine AdvReac Unknown Verified 06/07/23 10:48 all antibiotics Allergy Rash/Hives Uncoded 06/07/23 10:48 Physical Examination - Vital Signs Vital Signs: Vital Signs Pulse Resp BP Pulse Ox 06/08/23 13:00 49 L 12 188/78 98 06/08/23 11:00 61 12 185/90 97 06/08/23 09:38 51 L 18 96 06/08/23 08:00 44 L 20 189/72 98 06/08/23 06:28 50 L 19 186/74 98 06/08/23 06:03 49 L 188/77 99 06/08/23 04:06 50 L 187/66 99 06/08/23 03:20 49 L 17 154/92 99 06/07/23 22:15 51 L 147/59 97 06/07/23 21:26 52 L 17 170/70 97 06/07/23 20:31 52 L 141/83 06/07/23 20:24 53 L 131/50 06/07/23 19:35 53 L 17 134/44 06/07/23 19:00 49 L 17 163/64 98 06/07/23 18:00 60 18 158/60 98 06/07/23 17:00 58 L 18 161/97 98 06/07/23 16:00 66 14 128/74 98 06/07/23 15:00 64 14 139/43 98 GENERAL: The patient is lying in bed and does not appear in acute distress. NEUROLOGICAL: Limited because of her condition. Patient is severely encephalopathic with verbal stimuli she'll open her eyes but she only repeat phrases that is said to her such as are you ok etc. she's not following commands or appropriately answering questions. Pupils are round equal reactive to light. The pupils are round 3 mm bilat erally. No facial weakness. No dysarthria from limited language The motor the strength is unable to assess individual muscles because of her cooperation. She'll squeeze out of the left hand but not the right hand and she spontaneously lifting the left upper extremity on her own. With painful stimuli she withdraws bilateral extremities better on the left than the right Sensation and reflexes as well as cerebellum could not be assessed because of her cooperation. Results - Laboratory Findings CBC and BMP: 06/07/23 12:34 06/07/23 12:34 Abnormal Lab Findings: Abnormal Labs 06/07/23 06/07/23 06/07/23 12:34 12:34 15:11 WBC 13.3 H Neutrophils # 11.6 H Lymphocytes # 0.7 L BUN 42 H Creatinine 1.34 H Glucose 198 H POC Glucose (mg/dL) Urine Appearance Cloudy H Urine Protein 1+ H Urine Glucose (UA) 2+ H Urine Ketones 1+ H Urine Blood Small H Urine Mucus Occasional H 06/07/23 06/08/23 06/08/23 20:28 08:01 13:08 WBC Neutrophils # Lymphocytes # BUN Creatinine Glucose POC Glucose (mg/dL) 141 H 139 H 139 H Urine Appearance Urine Protein Urine Glucose (UA) Urine Ketones Urine Blood Urine Mucus Assessment and Plan Assessment: This is a 77-year-old woman who presented because of altered mental status appeared unknown last normal state. Her cousin was at bedside is not a great historian but she stated that the patient usually walks with a cane or walker and unknown if she has one deficit over the other and the cousin does not feel like she has history of seizures but patient is on Keppra at home. On examination I felt the patient is moving the left side more than the right side is severely encephalopathic Altered mental status: Unknown exact etiology but rule out stroke especially sin ce moving the left more than the right. History of atrial fibrillation and is not on anticoagulation. Also rule out seizure History of Atrial fibrillation and is not on any anticoagulation or antipl atelets prior. Episodes of bradycardia during this visit Escalated hypertension History of stroke Diabetes mellitus History of hypertension History of sleep apnea on CPAP Plan: I ordered MRI of the brain any underlying stroke or subacute stroke I ordered a routine EEG to rule out any underlying seizures We'll get a repeat CT of the head that today since unable to complete the MRI form to assess if there is any acute or subacute ischemic stroke that is not seen on initial CT. Ordered carotid duplex Patient was started on aspirin 300 mg suppository by the primary team. TSH, vitamin B12, folate, hemoglobin A1c is ordered by the primary team is pending Continue Imitrex Cardiac monitoring Patient does have a stroke will obtain 2-D echo. Cardiology is consulted by the primary team because of the patient's atrial fibrillation Defer the rest of the medical management to primary team Plan discussed with the primary team and the patient's nurse Thank you for the consultation Time with Patient: Greater than 30
--- NOTE | 2023-06-08 15:58 | US ---
EXAMINATION TYPE: US carotid duplex BILAT DATE OF EXAM: 06/08/2023 COMPARISON: NONE CLINICAL INDICATION: Female, 77 years old with history of stroke; Stroke TECHNIQUE: Carotid duplex ultrasound examination. Indirect Doppler criteria was utilized. FINDINGS: EXAM MEASUREMENTS: RIGHT: Peak Systolic Velocity (PSV) cm/sec ----- Right CCA: 56.7 ----- Right ICA: 874.0 ----- Right ECA: 109.5 ICA/CCA ratio: 15.4 RIGHT: End Diastole cm/sec ----- Right CCA: 7.5 ----- Right ICA: 473.5 ----- Right ECA: 0.0 LEFT: Peak Systolic Velocity (PSV) cm/sec ----- Left CCA: 85.3 ----- Left ICA: 36.5 ----- Left ECA: 135.2 ICA/CCA ratio: 0.4 LEFT: End Diastole cm/sec ----- Left CCA: 0.0 ----- Left ICA: 0.0 ----- Left ECA: 0.0 VERTEBRALS (direction of flow): Right Vertebral: Unable to visualize Left Vertebral: Antegrade Rhythm: Normal CORONER TECHNICIAN NOTES: Significant stenosis right carotid system, left ICA has abnormal trickle flow with in questioning near occlusion Sonja L[facility] [address] aware of critical findings IMPRESSION: 1. There is marked velocity increase within the right internal carotid artery. A critical stenosis is likely present. 2. Velocity within the left internal carotid artery is low. However, trickle flow with critical steno sis can have diminished velocities. Criteria for Assigning % of Stenosis / Diameter reduction (Estimation based on the indirect measurements of the internal carotid artery velocities (ICA PSV). 1. Normal (no stenosis)=ICA PSV < 125 cm/s: ratio < 2.0: ICA EDV<40 cm/s. 2. Less than 50% stenosis=ICA PSV < 125 cm/s: ratio < 2.0: ICA EDV<40 cm/s. 3. 50 to 69% stenosis=ICA PSV of 125 to 230 cm/s: ration 2.0 ? 4.0: ICA EDV 40-100 cm/s. 4. Greater than 70% stenosis to near occlusion= ICA PSV > 230 cm/s: ratio > 4.0: ICA EDV > 100 cm/s. 5. Near occlusion= ICA PSV velocities may be low or undetectable: variable ratio and ICA EDV. 6. Total occlusion=unable to detect flow.
--- NOTE | 2023-06-08 16:31 | CT ---
EXAMINATION TYPE: CT brain wo con DATE OF EXAM: 06/08/2023 COMPARISON: 06/07/2023 HISTORY: Altered mental status with right sided weakness. CT DLP: [address] of the brain was performed. The ventricles, basal cisterns and sulci overlying the cerebral convexities demonstrate mild enlargem ent. Decreased attenuation in right cerebellum. There is no evidence for intracranial hemorrhage or sulcal effacement. There is decreased attenuation about the periventricular white matter and deep white matter of both c erebral hemispheres, compatible with chronic small vessel ischemia. Differential diagnosis does inclu de demyelination. No mass effects are seen.No midline shift. Osseous calvarium is intact. If symptoms persist consider MRI. IMPRESSION: 1. Correlate for acute ischemic change right cerebellum. Otherwise age-related atrophic and chronic s mall vessel ischemic change.
[2023-06-08 17:44] LABS: Glucose,Whole Blood 116 mg/dL (70-110)
--- NOTE | 2023-06-08 20:25 | EEG ---
ELECTROENCEPHALOGRAM REPORT CLINICAL HISTORY: This is a 77-year-old woman, who presented to the emergency department because of altered mental status. The video EEG is obtained to evaluate for seizure and epileptiform activity. RELEVANT MEDICATIONS: Keppra. EEG TYPE: A routine 21-channel EEG using the 10/20 electrode placement system is used. DESCRIPTION: The background consists of very low voltage of 5 to 6 Hz activity. At times, the background appears nonrhythmic low voltage delta activity. There is no physiological stage II sleep architecture. There is no focal slowing. INTERICTAL AND ICTAL: None. ACTIVATION PROCEDURE: Photic stimulation did not evoke a posterior driving response. There is no abnormality during the photic stimulation. Hyperventilation is not performed. During the recording, the metal wire technician noted the heart rate was as low as 20s to 40s during this recording. CLINICAL INTERPRETATION: This is an abnormal routine EEG. The background slowing is suggestive of moderate encephalopathy. Otherwise, there is no focal slowing, epileptiform discharge, or seizure on the EEG. During this recording, the heart rate was in 20s to 40s per the metal wire technician and recommend Cardiology consultation. Clinical correlation is recommended. MMODL / IJN: [id number] / MTDD
[2023-06-08 20:54] LABS: Glucose,Whole Blood 113 mg/dL (70-110)
[2023-06-08] MEDS: ATORVASTATIN 80 MG TAB PO SCH (21:11)
[2023-06-09 06:00] LABS: Glucose,Whole Blood 155 mg/dL (70-110)
[2023-06-09] MEDS: INSULIN ASPART (NovoLOG) 100 UNIT/ML VIAL SQ SCH ×4 (06:00→20:38)
--- NOTE | 2023-06-09 07:07 | P.CRDCN ---
History of Present Illness History of present illness: HISTORY OF PRESENT ILLNESS: This is a 77-year-old female with a past medical history significant for hypertension, diabetes, sick sinus syndrome with previous pacemaker implantation, and persistent atrial fibrillation. Patient follows in the office with Dr. Nassar. We have been asked to see the patient in consultation for atrial fibrillation. Patient examined at the bedside. Documentation reveals that patient has been bradycardic. Upon reviewing telemetry, patient is in atrial fibrillation with controlled ventricular rate. Patient is having some PVCs which makes her heart rate appears slower than it really is. * EKG reveals atrial fibrillation with paced beats. T-wave inversions in inferior leads; seen on previous EKG in May 2022 * Chest xray negative for acute process * Laboratory data: WBC 13.3. Hemoglobin 12.6. Platelet count 274. Sodium 138. Potassium 4.6. BUN 42. Creatinine 1.34. Troponin negative 1. * Current home cardiac medications include []. * Most recent echocardiogram obtained in December 2021 revealed ejection fraction 45-50% mild MR, mild TR, mild pulmonary hypertension * Cardiac catheterization history: Unknown REVIEW OF SYSTEMS: At the time of my exam: CONSTITUTIONAL: Denies fever or chills. HEENT: Denies blurred vision, vision changes, or eye pain. Denies hemoptysis CARDIOVASCULAR: Denies chest pain. Denies orthopnea. Denies PND. Denies palpitations RESPIRATORY: Denies shortness of breath. GASTROINTESTINAL: Denies abdominal pain. Denies nausea or vomiting. HEMATOLOGIC: Denies bleeding disorders. GENITOURINARY: Denies any blood in urine. SKIN: Denies pruitis. Denies rash. PHYSICAL EXAM: VITAL SIGNS: Reviewed. GENERAL: Well-developed in no acute distress. HEENT: Head is normocephalic. Pupils are equal, round. Sclerae anicteric. Mucous membranes of the mouth are moist. Neck supple. No JVD or thyromegaly LUNGS: Respirations even and unlabored. Lungs essentially clear to auscultation bilaterally. HEART: Irregular rate and rhythm. S1 and S2 heard. ABDOMEN: Soft. Nondistended. Nontender. EXTREMITIES: Normal range of motion. No clubbing or cyanosis. Peripheral pulses intact. No lower extremity edema NEUROLOGIC: Patient confused upon examination ASSESSMENT: Altered mental status Persistent atrial fibrillation; not on oral anticoagulation secondary to history of retinal hemorrhage History of permanent pacemaker implantation, 2021 secondary to sick sinus syndrome History of retinal hemorrhage Hypertension Diabetes Obstructive sleep apnea History of nonsustained ventricular tachycardia PLAN: [] Nurse practitioner note has been reviewed by physician. Signing provider agrees with the documented findings, assessment, and plan of care. Past Medical History Past Medical History: Atrial Fibrillation, Diabetes Mellitus, Hyperlipidemia, Hypertension, Sleep Apnea/CPAP/BIPAP History of Any Multi-Drug Resistant Organisms: None Reported Additional Past Surgical History / Comment(s): cataract, eye surgeries, D&C, ankle surgery to repair fracture,retinal Hemorrhage surgeries in both eyes,colonoscopy. Past Anesthesia/Blood Transfusion Reactions: No Reported Reaction, Motion Sickness Past Psychological History: No Psychological Hx Reported, Depression Smoking Status: Never smoker Past Alcohol Use History: Rare Past Drug Use History: None Reported - Past Family History Mother Family Medical History: Vascular Disorder Father Family Medical History: Cancer Medications and Allergies Home Medications Medication Instructions Recorded Confirmed Type Levothyroxine Sodium [Synthroid] 88 mcg PO DAILY 12/27/21 06/07/23 History Losartan [Cozaar] 50 mg PO DAILY 12/27/21 06/07/23 History Metoprolol Succinate (ER) [Toprol 50 mg PO BID 05/24/22 06/07/23 History XL] glipiZIDE XL [Glucotrol Xl] 10 mg PO DAILY 05/24/22 06/07/23 History levETIRAcetam [Keppra] 500 mg PO BID 05/24/22 06/07/23 History metFORMIN HCL [Glucophage] 500 mg PO BID-W/MEALS 05/24/22 06/07/23 History Desonide [Zac-Tay 0.05%] 1 applic TOPICAL BID PRN 06/07/23 06/07/23 History Allergies Allergy/AdvReac Type Severity Reaction Status Date / Time Penicillins Allergy Itching Verified 06/07/23 10:48 Sulfa (Sulfonamide Allergy Unknown Verified 06/07/23 10:48 Antibiotics) codeine AdvReac Unknown Verified 06/07/23 10:48 all antibiotics Allergy Rash/Hives Uncoded 06/07/23 10:48 Physical Exam Vitals: Vital Signs Pulse Resp BP Pulse Ox 06/08/23 13:00 49 L 12 188/78 98 06/08/23 11:00 61 12 185/90 97 06/08/23 09:38 51 L 18 96 09/27/23 08:00 44 L 20 189/72 98 06/08/23 06:28 50 L 19 186/74 98 06/08/23 06:03 49 L 188/77 99 06/08/23 04:06 50 L 187/66 99 06/08/23 03:20 49 L 17 154/92 99 06/07/23 22:15 51 L 147/59 97 06/07/23 21:26 52 L 17 170/70 97 06/07/23 20:31 52 L 141/83 06/07/23 20:24 53 L 131/50 06/07/23 19:35 53 L 17 134/44 06/07/23 19:00 49 L 17 163/64 98 06/07/23 18:00 60 18 158/60 98 06/07/23 17:00 58 L 18 161/97 98 06/07/23 16:00 66 14 128/74 98 06/07/23 15:00 64 14 139/43 98 06/07/23 14:00 56 L 18 149/79 98 Results 06/07/23 12:34 06/07/23 12:34 Current Medications Generic Name Dose Route Start Last Admin Trade Name Denisq PRN Reason Stop Dose Admin Aspirin 300 mg 06/08/23 07:00 06/08/23 08:39 Aspirin 300 Mg Supp RECTAL 300 mg DAILY [place] Administration Dextrose/Water 25 ml 06/07/23 21:35 Dextrose 50% Syringe 50 Ml IVP PER PROTOCOL PRN Hypoglycemia Protocol Dextrose/Water 50 ml 06/07/23 21:35 Dextrose 50% Syringe 50 Ml IVP PER PROTOCOL PRN Hypoglycemia Protocol Famotidine 20 mg 06/09/23 09:00 Famotidine 20 Mg/2 Ml Vial IV DAILY [place] Dextrose/Sodium Chloride 1,000 mls @ 75 mls/hr 06/08/23 06:45 06/08/23 08:23 Dextrose 5%-Ns Iv Soln IV 75 mls/hr .[id number] [place] Administration Insulin Aspart 0 unit 06/08/23 07:30 06/08/23 13:09 Insulin Aspart (Novolog) 100 Unit/Ml Vial SQ Not Given ACHS [place] Protocol Levetiracetam 500 mg 06/07/23 21:45 06/08/23 08:23 Levetiracetam Iv 500 Mg/5 Ml Vial IVP 500 mg Q12HR [place] Administration Levothyroxine Sodium 50 mcg 06/08/23 09:00 06/08/23 08:39 Levothyroxine Ivp 100 Mcg/5 Ml Vial IV 50 mcg DAILY [place] Administration Naloxone HCl 0.2 mg 06/07/23 13:42 Naloxone 0.4 Mg/Ml 1 Ml Vial IV Q2M PRN Opioid Reversal Ondansetron HCl 4 mg 06/07/23 13:42 Ondansetron 4 Mg/2 Ml Vial IVP Q8HR PRN Nausea And Vomiting 06/07/23 12:34 06/07/23 12:34
[2023-06-09] MEDS: DEXTROSE 5%-0.9% NACL 1,000 ML IV SCH ×2 (07:36→20:53)
[2023-06-09] MEDS: levETIRAcetam IV 500 MG/5 ML VIAL IVP SCH ×2 (07:49→20:37)
[2023-06-09] MEDS: FAMOTIDINE 20 MG/2 ML VIAL IV SCH (07:49)
[2023-06-09 08:47] LABS: Basophils % (A) 0 %; Eosinophils # (A) 0.1 k/uL (0-0.7); Eosinophils % (A) 1 %; HCT 39.4 % (34.0-46.0); HGB 12.5 gm/dL (11.4-16.0); Hypochromasia Slight; Lymphocytes # (A) 1.1 k/uL (1.0-4.8); Lymphocytes % (A) 11 %; MCH 26.6 pg (25.0-35.0); MCHC 31.7 g/dL (31.0-37.0); MCV 84.2 fL (80.0-100.0); Mean Platelet Volume 8.5; Monocytes # (A) 0.7 k/uL (0-1.0); Monocytes % (A) 7 %; Neutrophils # (A) 8.4 k/uL (1.3-7.7); Neutrophils % (A) 79 %; Platelet Count 243 k/uL (150-450); RBC 4.68 m/uL (3.80-5.40); RDW 14.7 % (11.5-15.5); WBC 10.7 k/uL (3.8-10.6)
[2023-06-09 08:56] LABS: African American GFR (CKD) 82 (>60 ml/min/1.73 sqM); Anion Gap 6 mmol/L; Blood Urea Nitrogen 22 mg/dL (7-17); Calcium 9.1 mg/dL (8.4-10.2); Carbon Dioxide 26 mmol/L (22-30); Chloride 107 mmol/L (98-107); Glucose 160 mg/dL (74-99); Non-African American GFR(CKD) 72 (>60 ml/min/1.73 sqM); Sodium 139 mmol/L (137-145)
[2023-06-09] MEDS: ASPIRIN 300 MG SUPP RECTAL SCH (09:51)
[2023-06-09] MEDS: LEVOTHYROXINE IVP 100 MCG/5 ML VIAL IV SCH (09:51)
--- NOTE | 2023-06-09 10:55 | P.GSCN ---
History of Present Illness Consult date: 06/09/23 Reason for Consult: Carotid stenosis Requesting physician: Nathanael E Sheet History of present illness: This is a 77-year-old female who was brought in by EMS to the emergency department 2 days ago with altered mental status changes. HPI is obtained from chart due to patient's mental status. Apparently patient was found by [employer] [facility]. Patient per chart has a history of atrial fibrillation not reportedly on anticoagulation, diabetes mellitus, hyperlipidemia, hypertension, and sleep apnea. Reported as a never smoker. Initial brain CT reported degenerative and remote ischemic change with no definite acute hemorrhage or mass effect. Neurology has seen patient. Ordered MRI of brain however due to patient's mental status MRI was not performed. She underwent carotid duplex reporting hemodynamically significant stenosis of the right carotid artery. Also reports velocity within the left internal carotid artery low however trickle flow of critical stenosis can have diminished velocities. Patient did have a repeat brain CT that is reporting correlate for acute ischemic change right cerebellum. Patient remains encephalopathic. She does respond to her name. She did say hello. She did follow some simple commands, otherwise unable to obtain any significant information. Review of Systems ROS unobtainable: due to mental status Past Medical History Past Medical History: Atrial Fibrillation, Diabetes Mellitus, Hyperlipidemia, Hypertension, Sleep Apnea/CPAP/BIPAP History of Any Multi-Drug Resistant Organisms: None Reported Additional Past Surgical History / Comment(s): cataract, eye surgeries, D&C, ankle surgery to repair fracture,retinal Hemorrhage surgeries in both eyes,colonoscopy. Past Anesthesia/Blood Transfusion Reactions: No Reported Reaction, Motion Sickness Past Psychological History: No Psychological Hx Reported, Depression Smoking Status: Never smoker Past Alcohol Use History: Rare Past Drug Use History: None Reported - Past Family History Mother Family Medical History: Vascular Disorder Father Family Medical History: Cancer Medications and Allergies Home Medications Medication Instructions Recorded Confirmed Type Levothyroxine Sodium [Synthroid] 88 mcg PO DAILY 12/27/21 06/07/23 History Losartan [Cozaar] 50 mg PO DAILY 12/27/21 06/07/23 History Metoprolol Succinate (ER) [Toprol 50 mg PO BID 05/24/22 06/07/23 History XL] glipiZIDE XL [Glucotrol Xl] 10 mg PO DAILY 05/24/22 06/07/23 History levETIRAcetam [Keppra] 500 mg PO BID 05/24/22 06/07/23 History metFORMIN HCL [Glucophage] 500 mg PO BID-W/MEALS 05/24/22 06/07/23 History Desonide [Zac-Tay 0.05%] 1 applic TOPICAL BID PRN 06/07/23 06/07/23 History Allergies Allergy/AdvReac Type Severity Reaction Status Date / Time Penicillins Allergy Itching Verified 06/07/23 10:48 Sulfa (Sulfonamide Allergy Unknown Verified 06/07/23 10:48 Antibiotics) codeine AdvReac Unknown Verified 06/07/23 10:48 all antibiotics Allergy Rash/Hives Uncoded 06/07/23 10:48 Surgical - Exam Vital Signs Temp Pulse Resp BP Pulse Ox 97.5 F L 59 L 20 150/71 98 06/07/23 10:26 06/07/23 10:26 06/07/23 10:26 06/07/23 10:06/07/23 10:26 General appearance: The patient is alert, oriented to self, appears encephalopathic. HET: Head is normocephalic and atraumatic. Pupils are equal and reactive. Neck: Supple. No carotid bruit heard. Heart: Regular. Lungs: Equal expansion, normal respiratory effort. Abdomen: Soft, nontender, nondistended. Extremities: Normal skin color and turgor. Neurological: Patient appears encephalopathic, oriented to self only. She did answer good morning. She was able to follow some Simple commands. Tongue protrudes midline.bilateral upper and lower extremity weakness. She does have movement of bilateral upper and lower extremities with painful stimuli. Appears strength on left might be slightly greater than right. Results - Labs 06/09/23 08:10 06/09/23 08:10 Abnormal Lab Results - Last 24 Hours (Table) 06/08/23 06/08/23 06/08/23 Range/Units 13:08 17:42 20:53 WBC (3.8-10.6) k/uL Neutrophils # (1.3-7.7) k/uL BUN (7-17) mg/dL Glucose (74-99) mg/dL POC Glucose (mg/dL) 139 H 116 H 113 H (70-110) mg/dL 06/09/23 06/09/23 06/09/23 Range/Units 05:58 08:10 08:10 WBC 10.7 H (3.8-10.6) k/uL Neutrophils # 8.4 H (1.3-7.7) k/uL BUN 22 H (7-17) mg/dL Glucose 160 H (74-99) mg/dL POC Glucose (mg/dL) 155 H (70-110) mg/dL Diabetes panel 06/09/23 Range/Units 08:10 Sodium 139 (137-145) mmol/L Potassium 4.0 (3.5-5.1) mmol/L Chloride 107 (98-107) mmol/L Carbon Dioxide 26 (22-30) mmol/L BUN 22 H (7-17) mg/dL Creatinine 0.80 (0.52-1.04) mg/dL Glucose 160 H (74-99) mg/dL Calcium 9.1 (8.4-10.2) mg/dL Calcium panel 06/09/23 Range/Units 08:10 Calcium 9.1 (8.4-10.2) mg/dL Pituitary panel 06/09/23 Range/Units 08:10 Sodium 139 (137-145) mmol/L Potassium 4.0 (3.5-5.1) mmol/L Chloride 107 (98-107) mmol/L Carbon Dioxide 26 (22-30) mmol/L BUN 22 H (7-17) mg/dL Creatinine 0.80 (0.52-1.04) mg/dL Glucose 160 H (74-99) mg/dL Calcium 9.1 (8.4-10.2) mg/dL Adrenal panel 06/09/23 Range/Units 08:10 Sodium 139 (137-145) mmol/L Potassium 4.0 (3.5-5.1) mmol/L Chloride 107 (98-107) mmol/L Carbon Dioxide 26 (22-30) mmol/L BUN 22 H (7-17) mg/dL Creatinine 0.80 (0.52-1.04) mg/dL Glucose 160 H (74-99) mg/dL Calcium 9.1 (8.4-10.2) mg/dL - Imaging Comments: Carotid duplex: There is marked velocity increase within the right internal carotid artery. A critical stenosis is likely present. Velocity within the left internal carotid artery is low. However, trickle flow with critical stenosis can have diminished velocities Brain CT: Correlate for acute ischemic change right cerebellum. Otherwise age-related atrophic and small chronic vessel ischemic change. Assessment and Plan Assessment: 1. Altered mental status changes 2. Correlate for acute ischemic change right cerebellum per brain CT 3. Right critical ICA stenosis per carotid duplex 4. Atrial fibrillation 5. Hypertension 6. Diabetes mellitus 7. Hyperlipidemia Plan: 1. CT angiogram head and neck ordered 2. Continue with recommendations from neurology 3. Consult speech, OT and PT 4. Await recommendations from cardiology 5. Further recommendations forthcoming based on clinical course Thank you for this consultation, we will continue to follow. The impression and plan of care has been dictated as directed. I performed a history and examination of this patient, discussed the same with the dictator. I agree with the dictator's note ,documented as a scribe. Any additional findings or plans will be noted.
[2023-06-09 11:46] LABS: BUN/Creat Ratio 27.75 Ratio (12.00-20.00); Blood Urea Nitrogen 33.3 mg/dL (9.0-27.0); Calcium 9.3 mg/dL (8.7-10.3); Carbon Dioxide 19.1 mmol/L (21.6-31.8); Chloride 105 mmol/L (96-109); Glucose 123 mg/dL (70-110); Potassium 4.6 mmol/L (3.5-5.5); Sodium 142 mmol/L (135-145)
[2023-06-09 11:46] LABS: Glucose,Whole Blood 170 mg/dL (70-110)
[2023-06-09 12:55] LABS: Vitamin B12 >1800.0 pg/mL (200.0-944.0)
--- NOTE | 2023-06-09 13:17 | P.PN ---
Subjective Progress Note Date: 06/09/23 I am following-up with patient and per nurse she continues to have right sided weakness and not following commands. Per primary he felt she is more responsive today compared to yesterday. Yesterday she had repeat CT head and reported as correlate for acute ischemic change right cerebellum. The night nurse over 6N notified and I notified her to transfer patient to stroke floor which she was. Objective - Vital Signs Vital signs: Vital Signs Temp 98.7 F 06/09/23 04:50 Pulse 66 06/09/23 12:38 Resp 16 06/09/23 12:38 BP 188/86 06/09/23 12:38 Pulse Ox 97 06/09/23 12:38 FiO2 Intake & Output 06/08/23 06/09/23 06/09/23 18:59 06:59 18:59 Output Total 500 250 Balance -500 -250 Output: Urine 500 250 Other: Voiding Method External Catheter # Voids 2 - Exam General: Lying in bed and is not in acute distress. Neuro: Limited. The patient is awake but is only repeating phrases stated to her. She was able to follow few simple commands such as closing her eyes, sticking her tongue out. Has aphasia and appears severe expressive aphasia. Pupils are round, equal and reactive to light. Pupils are 3mm bilaterally. No facial weakness. No dysarthria from limited language. Motor: Strength: Moved the right upper extremity 2/5 and no movement of right lower extremity. Lifting left upper and lower above gravity. Some of the workup during his hospital visit consisted of: Ammonia level is less than 9 B12 is more than 1800 Folate is 9.30 TSH is 1.740 Glucose serum was 198. BUN is 42 and creatinine is 1.34. CT of the head is reported as degenerative and remote ischemic change with the definite of acute hemorrhage or mass effect. EKG is reported as atrial fibrillation with slow ventricular response. ST and deviation and moderate ST wave abnormality. Consider inferior ischemia. Repeat CT head is reported as correlate for acute ischemic change right cerebellum. Otherwise age-related atrophic and chronic small vessel ischemic changes. I personally reviewed that CT and I do see that there is hypo-density over the cerebellum but I feel it's hard to assess on the CT and MRI is more sensitive Carotid duplex was reported as there is marked velocity increase within the right internal carotid artery. A critical stenosis is likely present. Loss of the within the left internal carotid is low. However ventricle flow within c ritical stenosis can have diminished velocities. Routine EEG is abnormal. The background slowing suggestive of moderate encephalopathy. Otherwise there is no focal slowing, epileptiform discharges or seizure on the EEG. During this recording the heart rate was in the 20s to 40s per the porcelain technician and recommend cardiology consultation. - Labs CBC & Chem 7: 06/09/23 08:10 06/09/23 08:10 Labs: Abnormal Lab Results - Last 24 Hours (Table) 06/08/23 06/08/23 06/08/23 Range/Units 06:18 13:08 17:42 WBC (3.8-10.6) k/uL Neutrophils # (1.3-7.7) k/uL Carbon Dioxide 19.1 L (21.6-31.8) mmol/L Anion Gap 17.90 H (4.00-12.00) mmol/L BUN 33.3 H (9.0-27.0) mg/dL Est GFR (CKD-EPI) 47 L (>=60) BUN/Creatinine Ratio 27.75 H (12.00-20.00) Ratio Glucose 123 H (70-110) mg/dL POC Glucose (mg/dL) 139 H 116 H (70-110) mg/dL Vitamin B12 >1800.0 H (200.0-944.0) pg/mL 06/08/23 06/09/23 06/09/23 Range/Units 20:53 05:58 08:10 WBC (3.8-10.6) k/uL Neutrophils # (1.3-7.7) k/uL Carbon Dioxide (21.6-31.8) mmol/L Anion Gap (4.00-12.00) mmol/L BUN 22 H (9.0-27.0) mg/dL Est GFR (CKD-EPI) (>=60) BUN/Creatinine Ratio (12.00-20.00) Ratio Glucose 160 H (70-110) mg/dL POC Glucose (mg/dL) 113 H 155 H (70-110) mg/dL Vitamin B12 (200.0-944.0) pg/mL 06/09/23 06/09/23 Range/Units 08:10 11:42 WBC 10.7 H (3.8-10.6) k/uL Neutrophils # 8.4 H (1.3-7.7) k/uL Carbon Dioxide (21.6-31.8) mmol/L Anion Gap (4.00-12.00) mmol/L BUN (9.0-27.0) mg/dL Est GFR (CKD-EPI) (>=60) BUN/Creatinine Ratio (12.00-20.00) Ratio Glucose (70-110) mg/dL POC Glucose (mg/dL) 170 H (70-110) mg/dL Vitamin B12 (200.0-944.0) pg/mL Assessment and Plan Assessment: This is a 77-year-old woman who presented because of altered mental status appeared unknown last normal state. Her cousin was at bedside is not a great historian but she stated that the patient usually walks with a cane or walker and unknown if she has one deficit over the other and the cousin does not feel like she has history of seizures but patient is on Keppra at home. On examination I felt the patient is moving the left side more than the right side is severely encephalopathic Right-sided weakness, aphasia and some confusion due to acute ischemic stroke especially with a history of atrial fibrillation and she is not on any anticoagu lation or antiplatelet prior to this. Repeat CT of the head shows hypodensity over the right cerebellar. No IV TPA since unknown last normal and the risk outweigh the benefit. History of Atrial fibrillation and is not on any anticoagulation or antiplatelets prior. Likely critical stenosis is likely present over the right ICA Pro carotid duplex. Episodes of bradycardia during this visit Escalated hypertension History of stroke Diabetes mellitus History of hypertension History of sleep apnea on CPAP Plan: Pending MRI of the brain. Per the patient nurse they're having difficulty filling out the form since unable to get information from the patient's cousin or friend. If unable to obtain MRI then we'll get a repeat CT of the head tomorrow Vascular surgery was consulted for the carotid stenosis and the ordered CT angiography of the head and neck Patient was started on aspirin 300 mg suppository by the primary team. I started the patient on Lipitor 80 mg daily at bedtime for signature prophylaxis and she'll receive it once she is able to swallow or gets an NG or PEG tube. Pending the lipid panel as well as hemoglobin A1c Continue neuro checks. Cardiac monitoring Ordered 2D echo.. Cardiology is consulted by the primary team because of the patient's atrial fibrillation Defer the rest of the medical management to primary team For DVT prophylaxis as are the patient on subcu heparin 5000 units every 12 hours Plan discussed with the primary team and the patient's nurse Will continue to follow Time with Patient: Less than 30
--- NOTE | 2023-06-09 13:20 | P.CRDCN ---
History of Present Illness Consult date: 06/09/23 Consult reason: atrial fibrillation History of present illness: HISTORY OF PRESENT ILLNESS: This is a 77-year-old female with a past medical history significant for hypertension, diabetes, sick sinus syndrome with previous pacemaker implantation, and persistent atrial fibrillation. Patient follows in the office with Dr. Nassar. We have been asked to see the patient in consultation for atrial fibrillation. Patient examined at the bedside. Documentation reveals that patient has been bradycardic. Upon reviewing telemetry, patient is in atrial fibrillation with controlled ventricular rate. Patient is having some P VCs which makes her heart rate appears slower than it really is. Patient presented to the hospital with altered mental status. CAT scan of the brain was concerning for acute ischemic change in the right cerebellum. Patient is followed by neurology and vascular surgery. Patient is unable to provide any information. Patient has not been on anticoagulation for atrial fibrillation in the past due to retinal hemorrhage. * EKG reveals atrial fibrillation with paced beats. T-wave inversions in in ferior leads; seen on previous EKG in May 2022 * Chest xray negative for acute process * Laboratory data: WBC 13.3. Hemoglobin 12.6. Platelet count 274. Sodium 138. Potassium 4.6. BUN 42. Creatinine 1.34. Troponin negative 1. TSH 1.74. * Current home cardiac medications include losartan 50 mg daily, Toprol-XL 50 mg twice daily, levothyroxine 88 g daily.. * Most recent echocardiogram obtained in December 2021 revealed ejection fraction 45-50% mild MR, mild TR, mild pulmonary hypertension * Cardiac catheterization history: Unknown REVIEW OF SYSTEMS: At the time of my exam: CONSTITUTIONAL: Denies fever or chills. HEENT: Denies blurred vision, vision changes, or eye pain. Denies hemoptysis CARDIOVASCULAR: Denies chest pain. Denies orthopnea. Denies PND. Denies palpitations RESPIRATORY: Denies shortness of breath. GASTROINTESTINAL: Denies abdominal pain. Denies nausea or vomiting. HEMATOLOGIC: Denies bleeding disorders. GENITOURINARY: Denies any blood in urine. SKIN: Denies pruitis. Denies rash. PHYSICAL EXAM: VITAL SIGNS: Reviewed. 188/86, heart rate 66. GENERAL: Well-developed in no acute distress. HEENT: Head is normocephalic. Pupils are equal, round. Sclerae anicteric. Mucous membranes of the mouth are moist. Neck supple. No JVD or thyromegaly LUNGS: Respirations even and unlabored. Lungs essentially clear to auscultation bilaterally. HEART: Irregular rate and rhythm. S1 and S2 heard. ABDOMEN: Soft. Nondistended. Nontender. EXTREMITIES: Normal range of motion. No clubbing or cyanosis. Peripheral pulses intact. No lower extremity edema NEUROLOGIC: Patient confused upon examination ASSESSMENT: Metabolic encephalopathy Persistent atrial fibrillation; not on oral anticoagulation secondary to history of retinal hemorrhage History of permanent pacemaker implantation, 2021 secondary to sick sinus syndrome History of retinal hemorrhage Hypertension Diabetes Obstructive sleep apnea History of nonsustained ventricular tachycardia PLAN: Patient is currently nothing by mouth, speech therapy is following Start patient on clonidine patch 0.1mg/24h if ok with neurologist Nurse practitioner note has been reviewed by physician. Signing provider agrees with the documented findings, assessment, and plan of care. Past Medical History Past Medical History: Atrial Fibrillation, Diabetes Mellitus, Hyperlipidemia, Hypertension, Sleep Apnea/CPAP/BIPAP History of Any Multi-Drug Resistant Organisms: None Reported Additional Past Surgical History / Comment(s): cataract, eye surgeries, D&C, ankle surgery to repair fracture,retinal Hemorrhage surgeries in both eyes,colonoscopy. Past Anesthesia/Blood Transfusion Reactions: No Reported Reaction, Motion Sickness Past Psychological History: No Psychological Hx Reported, Depression Smoking Status: Never smoker Past Alcohol Use History: Rare Past Drug Use History: None Reported - Past Family History Mother Family Medical History: Vascular Disorder Father Family Medical History: Cancer Medications and Allergies Home Medications Medication Instructions Recorded Confirmed Type Levothyroxine Sodium [Synthroid] 88 mcg PO DAILY 12/27/21 06/07/23 History Losartan [Cozaar] 50 mg PO DAILY 12/27/21 06/07/23 History Metoprolol Succinate (ER) [Toprol 50 mg PO BID 05/24/22 06/07/23 History XL] glipiZIDE XL [Glucotrol Xl] 10 mg PO DAILY 05/24/22 06/07/23 History levETIRAcetam [Keppra] 500 mg PO BID 05/24/22 06/07/23 History metFORMIN HCL [Glucophage] 500 mg PO BID-W/MEALS 05/24/22 06/07/23 History Desonide [Zac-Tay 0.05%] 1 applic TOPICAL BID PRN 06/07/23 06/07/23 History Allergies Allergy/AdvReac Type Severity Reaction Status Date / Time Penicillins Allergy Itching Verified 06/07/23 10:48 Sulfa (Sulfonamide Allergy Unknown Verified 06/07/23 10:48 Antibiotics) codeine AdvReac Unknown Verified 06/07/23 10:48 all antibiotics Allergy Rash/Hives Uncoded 06/07/23 10:48 Physical Exam Vitals: Vital Signs Temp Pulse Pulse Resp BP BP Pulse Ox 06/09/23 04:50 98.7 F 51 L 17 128/86 98 06/08/23 23:20 54 L 18 154/58 96 06/08/23 19:24 98.2 F 52 L 16 170/72 98 06/08/23 15:00 98.5 F 56 L 16 186/71 96 06/08/23 14:00 18 06/08/23 13:00 49 L 12 188/78 98 06/08/23 11:00 61 12 185/90 97 06/08/23 09:38 51 L 18 96 06/08/23 08:00 44 L 20 189/72 98 Intake and Output 06/08/23 06/09/23 06/09/23 22:59 06:59 14:59 Output Total 500 Balance -500 Output: Urine 500 Other: Voiding Method External Catheter External Catheter # Voids 2 Results 06/09/23 08:10 06/09/23 08:10 Current Medications Generic Name Dose Route Start Last Admin Trade Name Freq PRN Reason Stop Dose Admin Aspirin 300 mg 06/08/23 07:00 06/08/23 08:39 Aspirin 300 Mg Supp RECTAL 300 mg DAILY [place] Administration Atorvastatin Calcium 80 mg 06/08/23 21:00 06/08/23 21:11 Atorvastatin 80 Mg Tab PO Not Given HS [place] Dextrose/Water 25 ml 06/07/23 21:35 Dextrose 50% Syringe 50 Ml IVP PER PROTOCOL PRN Hypoglycemia Protocol Dextrose/Water 50 ml 06/07/23 21:35 Dextrose 50% Syringe 50 Ml IVP PER PROTOCOL PRN Hypoglycemia Protocol Famotidine 20 mg 06/09/23 09:00 Famotidine 20 Mg/2 Ml Vial IV DAILY [place] Dextrose/Sodium Chloride 1,000 mls @ 75 mls/hr 06/08/23 06:45 06/08/23 21:10 Dextrose 5%-Ns Iv Soln IV Not Given .[id number] [facility] Insulin Aspart 0 unit 06/08/23 07:30 06/09/23 06:00 Insulin Aspart (Novolog) 100 Unit/Ml Vial SQ Not Given ACHS [facility] Protocol Levetiracetam 500 mg 06/07/23 21:45 06/08/23 21:11 Levetiracetam Iv 500 Mg/5 Ml Vial IVP 500 mg Q12HR [place] Administration Levothyroxine Sodium 50 mcg 06/08/23 09:00 06/08/23 08:39 Levothyroxine Ivp 100 Mcg/5 Ml Vial IV 50 mcg DAILY [place] Administration Naloxone HCl 0.2 mg 06/07/23 13:42 Naloxone 0.4 Mg/Ml 1 Ml Vial IV Q2M PRN Opioid Reversal Ondansetron HCl 4 mg 06/07/23 13:42 Ondansetron 4 Mg/2 Ml Vial IVP Q8HR PRN Nausea And Vomiting Intake and Output 06/08/23 06/09/23 06/09/23 22:59 06:59 14:59 Output Total 500 Balance -500 Output: Urine 500 Other: Voiding Method External Catheter External Catheter # Voids 2 06/07/23 12:34 06/07/23 12:34
--- NOTE | 2023-06-09 13:50 | P.PN ---
Subjective This is a pleasant 77 years old female with past medical history of Atrial Fibrillation, Diabetes Mellitus, Hyperlipidemia, Hypertension, Sleep Apnea/CPAP/BIPAP Patient is seen in the emergency room, she was lying in bed awake and looking mainly to the left side When asking the patient any question she answers with her for number for example and ask her about her name, orientation questions or her symptoms are because of presentation she just answered by given her no phone number. She does not follow commands appropriately and it looks that she has increased on on the right side with some flexion deformity. No further information could be obtained from the patient. No family at bedside. Temperature 97.5, heart rate 50, blood pressure is within the reference range She had mild leukocytosis of 13.3. Rest of CBC is unremarkable. INR is 1.1. Creatinine is elevated at 1.34 which is close to baseline of 1.0-1.2 Liver enzymes not elevated. Ammonia less than 9. Troponin negative. Serum alcohol less than 10. Viruses undetected including influenza and RSV CT of the brain: Degenerative and remote ischemic changes with no definitive acute process Patient is started on normal saline in the emergency room and the neurologist consulted 06/08/2030 Patient still confused, she does not follow command, she is not answer questions appropriately, she mumbles Right-sided weakness Patient is a known case of atrial fibrillation and on reviewing the notes from 12/27/2021 that looks like the patient was started on liquids but she started having issues with blood in the urine as well as a history of retinal hemorrhage so she decided not to take her Eliquis. Last year she fell and she had the total disorientation and slurred speech. At that time she had persistent atrial fibrillation with bradycardia and pauses and declining to take oral anticoagulation. Patient has bradycardia with heart rate 49-51. Metoprolol 50 mg is put on hold if heart rate improve we may start the metoprolol at lower dose. Blood pressure slightly elevated at 186/74. 06/09/2023 Patient still has left-sided gaze. However looks somewhat better compared to the last 2 days. For the first time she couldn't tell me " hello" when aggravated her, and then she could say "okay" but she could not say more words. Also for the first time she could follow one simple, for example upon your mild, stick her tongue out, move your tongue , and that same time she couldn't follow other commands. She is lying in bed not moving any of her extremities. Patient blood pressure 188/86 and heart rate 66. She had EEG showing moderate encephalopathy with no evidence of epileptiform discharges. Her crit was 20-40 during the procedure Cardiology consult evaluated the pt and she was not a candidate for anticoagulation vascular surgery team also on the case with ct angio is ordered to check for the carotid disease i called the cousin theresa damon who is Next of kin in our system and left a message to call back to discuss the plan of treatment and response is pending for now Active Medications Generic Name Dose Route Start Last Admin Trade Name Freq PRN Reason Stop Dose Admin Aspirin 300 mg 06/08/23 07:00 06/09/23 09:51 Aspirin 300 Mg Supp RECTAL 300 mg DAILY [place] Administration Atorvastatin Calcium 80 mg 06/08/23 21:00 06/08/23 21:11 Atorvastatin 80 Mg Tab PO Not Given HS [place] Clonidine HCl 1 patch 06/09/23 13:30 Clonidine 0.1 Mg/24hr Patch TRANSDERM Q7D [place] Dextrose/Water 25 ml 06/07/23 21:35 Dextrose 50% Syringe 50 Ml IVP PER PROTOCOL PRN Hypoglycemia Protocol Dextrose/Water 50 ml 06/07/23 21:35 Dextrose 50% Syringe 50 Ml IVP PER PROTOCOL PRN Hypoglycemia Protocol Famotidine 20 mg 06/09/23 09:00 06/09/23 07:49 Famotidine 20 Mg/2 Ml Vial IV 20 mg DAILY [place] Administration Heparin Sodium (Porcine) 5,000 unit 06/09/23 13:30 Heparin Sodium,Porcine 5,000 Unit/Ml 1 Ml Vial SQ Q12HR [place] Dextrose/Sodium Chloride 1,000 mls @ 75 mls/hr 06/08/23 06:45 06/09/23 07:36 Dextrose 5%-Ns Iv Soln IV 75 mls/hr .[id number] [place] Administration Insulin Aspart 0 unit 06/08/23 07:30 06/09/23 12:41 Insulin Aspart (Novolog) 100 Unit/Ml Vial SQ 1 unit ACHS [place] Administration Protocol Levetiracetam 500 mg 06/07/23 21:45 06/09/23 07:49 Levetiracetam Iv 500 Mg/5 Ml Vial IVP 500 mg Q12HR [place] Administration Levothyroxine Sodium 50 mcg 06/08/23 09:00 06/09/23 09:51 Levothyroxine Ivp 100 Mcg/5 Ml Vial IV 50 mcg DAILY [place] Administration Naloxone HCl 0.2 mg 06/07/23 13:42 Naloxone 0.4 Mg/Ml 1 Ml Vial IV Q2M PRN Opioid Reversal Ondansetron HCl 4 mg 06/07/23 13:42 Ondansetron 4 Mg/2 Ml Vial IVP Q8HR PRN Nausea And Vomiting Objective - Vital Signs Vital signs: Vital Signs Temp 98.7 F 06/09/23 04:50 Pulse 54 L 06/09/23 07:42 Resp 15 06/09/23 07:42 BP 185/81 06/09/23 07:42 Pulse Ox 98 06/09/23 07:42 FiO2 Intake & Output 06/08/23 06/09/23 06/09/23 18:59 06:59 18:59 Output Total 500 Balance -500 Output: Urine 500 Other: Voiding Method External Catheter # Voids 2 - Exam GENERAL: The patient is confused , no follow commands, not answering question,, not in any acute distress. Well developed, well nourished. HEENT: Pupils are round and equally reacting to light. EOMI. No scleral icterus. No conjunctival pallor. Normocephalic, atraumatic. No pharyngeal erythema. No thyromegaly. CARDIOVASCULAR: S1 and S2 present. No murmurs, rubs, or gallops. PULMONARY: Chest is clear to auscultation, no wheezing , no crackles. ABDOMEN: Soft, nontender, nondistended, normoactive bowel sounds. No palpable organomegaly. MUSCULOSKELETAL: No joint swelling or deformity. EXTREMITIES: No cyanosis, clubbing, or pedal edema. -NEUROLOGICAL: right hemiparensis with increased tone, exam is limited by the pt condition. SKIN: No rashes. no petechiae. - Labs CBC & Chem 7: 06/09/23 08:10 06/09/23 08:10 Labs: Abnormal Lab Results - Last 24 Hours (Table) 06/08/23 06/08/23 06/08/23 Range/Units 13:08 17:42 20:53 WBC (3.8-10.6) k/uL Neutrophils # (1.3-7.7) k/uL BUN (7-17) mg/dL Glucose (74-99) mg/dL POC Glucose (mg/dL) 139 H 116 H 113 H (70-110) mg/dL 06/09/23 06/09/23 06/09/23 Range/Units 05:58 08:10 08:10 WBC 10.7 H (3.8-10.6) k/uL Neutrophils # 8.4 H (1.3-7.7) k/uL BUN 22 H (7-17) mg/dL Glucose 160 H (74-99) mg/dL POC Glucose (mg/dL) 155 H (70-110) mg/dL Assessment and Plan Assessment: Altered mental status with possible left gaze fixation with possible right he miparesis Rule out intracranial causes mild acute kidney injury Chronic atrial fibrillation with bradycardia on admission, Status post pacemaker. Previously patient declined to take anticoagulation non adherence to treatment sever carotid artery dis h/o retinal hemorrhage history of seizure on Keppra chronic kidney disease stage III Hypertension, permissive hypertension for 24-48 hours Hyperlipidemia History of sleep apnea Diabetes mellitus Plan: Continue with a neuro check aspirin as benefit more than risk ,i called next of kin to discuss management plan and response is pending for now Continue telemetry monitoring Neurology consult vascular surgery team on the case Cardiology consult Continue with insulin sliding scale Resume Keppra Hold metoprolol given her bradycardia WBC is mildly elevated but looks concentrated sample as hemoglobin and a plat elet count are more than baseline. We'll give IV hydration and reassess Check bladder scan and send urine analysis and urine drug screen Labs and medication were reviewed.. Continue same treatment. Continue with symptomatic treatment. Resume home medication. Monitor labs and vitals. DVT and GI prophylaxis. Further recommendations as per clinical course of the patient DVT prophylaxis: heparin GI Prophylaxis: Pepcid PT/OT: deferred Prognosis is guarded
[2023-06-09 13:59] LABS: Basophils # (A) 0.04 X 10*3/uL (0.00-0.10); Basophils % (A) 0.4 %; Eosinophils # (A) 0.01 X 10*3/uL (0.04-0.35); Eosinophils % (A) 0.1 %; HCT 39.3 % (37.2-46.3); HGB 11.8 d/dL (12.0-15.0); Lymphocytes # (A) 1.27 X 10*3/uL (0.90-5.00); Lymphocytes % (A) 11.6 %; MCH 25.7 pg (27.0-32.0); MCV 85.6 FL (80.0-97.0); Mean Platelet Volume 11.3 FL (9.5-12.2); Monocytes # (A) 0.76 X 10*3/uL (0.20-1.00); NRBC Per 100 WBC 0 X 10*3/uL (0.00-0.01); Neutrophils # (A) 8.77 X 10*3/uL (1.80-7.70); Neutrophils % (A) 80.4 %; Platelet Count 275 X 10*3/uL (140-440); RBC 4.59 X 10*6/uL (4.10-5.20); RDW 15.1 % (11.5-14.5); WBC 10.91 X 10*3/uL (4.50-10.00)
[2023-06-09] MEDS: HEPARIN SODIUM,PORCINE 5,000 UNIT/ML 1 ML VIAL SQ SCH ×2 (14:44→20:38)
[2023-06-09 16:47] LABS: Glucose,Whole Blood 154 mg/dL (70-110)
[2023-06-09] MEDS ORDERED: cloNIDine 0.1 MG/24HR PATCH TRANSDERM SCH (17:00)
[2023-06-09 19:51] LABS: Glucose,Whole Blood 154 mg/dL (70-110)
[2023-06-09] MEDS: ATORVASTATIN 80 MG TAB PO SCH (20:23)
[2023-06-10 00:03] LABS: Chol/HDL Ratio 4.15 Ratio; VLDL Calculation 17.52 mg/dL (5.00-40.00)
[2023-06-10 06:07] LABS: Glucose,Whole Blood 157 mg/dL (70-110)
[2023-06-10] MEDS: INSULIN ASPART (NovoLOG) 100 UNIT/ML VIAL SQ SCH ×4 (06:49→20:01)
[2023-06-10] MEDS: HEPARIN SODIUM,PORCINE 5,000 UNIT/ML 1 ML VIAL SQ SCH ×2 (08:18→21:53)
[2023-06-10] MEDS: levETIRAcetam IV 500 MG/5 ML VIAL IVP SCH ×2 (08:18→21:52)
[2023-06-10] MEDS: FAMOTIDINE 20 MG/2 ML VIAL IV SCH (08:19)
[2023-06-10] MEDS: LEVOTHYROXINE IVP 100 MCG/5 ML VIAL IV SCH (08:19)
[2023-06-10] MEDS: ASPIRIN 300 MG SUPP RECTAL SCH (08:19)
[2023-06-10] MEDS ORDERED: Magnesium Replacement Protocol 1 EACH MISC MISCELLANE PRN (10:30)
[2023-06-10] MEDS: MAGNESIUM SULFATE-D5W PMX 1 GM in DEXTROSE/WATER 1 100ML.BAG IVPB SCH ×2 (10:55→12:19)
[2023-06-10] MEDS ORDERED: cloNIDine 0.1 MG/24HR PATCH TRANSDERM SCH (11:00)
[2023-06-10 11:35] LABS: Glucose,Whole Blood 159 mg/dL (70-110)
--- NOTE | 2023-06-10 12:12 | CA ---
Transthoracic Echo Report Name: Elenita Armenta Age: 77 Gender: F : 1945 Exam Date: 06/09/2023 13:37 Exam Location: [place] [facility] Ht (in): 63 Wt (lb): 165 Ordering Physician: Jamaal Mitchell MD Attending/Referring Phys: Bung Remover Berry Ledezma Procedure CPT: Indications: stroke Cardiac Hx: Technical Quality: Fair Contrast 1: Total Dose (mL): Contrast 2: Total Dose (mL): MEASUREMENTS (Male / Female) Normal Values 2D ECHO LV Diastolic Diameter PLAX 4.7 cm 4.2 - 5.9 / 3.9 - 5.3 cm LV Systolic Diameter PLAX 3.8 cm IVS Diastolic Thickness 1.3 cm 0.6 - 1.0 / 0.6 - 0.9 cm LVPW Diastolic Thickness 1.3 cm 0.6 - 1.0 / 0.6 - 0.9 cm LV Relative Wall Thickness 0.6 RV Internal Dim ED PLAX 3.2 cm LVOT Diameter 2.3 cm Aortic Root Diameter 2.7 cm LA Systolic Diameter LX 2.9 cm 3.0 - 4.0 / 2.7 - 3.8 cm LV Diastolic Volume MOD BP 91.7 cm??? 67 - 155 / 56 - 104 cm??? LV Systolic Volume MOD BP 45.7 cm??? - 58 / 19 - 49 cm??? LV Ejection Fraction MOD BP 50.2 % >= 55 % LV Cardiac Index MOD BP 1318.7 cm???/min???m??? LV Diastolic Volume MOD 4C 76.0 cm??? LV Systolic Volume MOD 4C 42.8 cm??? LV Ejection Fraction MOD 4C 43.7 % LV Cardiac Index MOD 4C 952.8 cm???/min???m??? LV Diastolic Length 4C 6.8 cm LV Systolic Length 4C 5.9 cm LV Diastolic Volume MOD 2C 105.2 cm??? LV Systolic Volume MOD 2C 43.8 cm??? LV Ejection Fraction MOD 2C 58.3 % LV Cardiac Index MOD 2C 1760.0 cm???/min???m??? LV Diastolic Length 2C 7.2 cm LV Systolic Length 2C 6.6 cm LA Volume 74.3 cm??? 18 - 58 / 22 - 52 cm??? DOPPLER AV Peak Velocity 175.6 cm/s AV Peak Gradient 12.3 mmHg AI Peak Velocity 224.0 cm/s AI Peak Gradient 20.1 mmHg AI Pressure Half Time 864.3 ms LVOT Peak Velocity 70.5 cm/s LVOT Peak Gradient 2.0 mmHg LVOT Velocity Time Integral 16.5 cm LVOT Stroke Volume 70.2 cm??? LVOT Stroke Volume Index 39.4 ml/m??? LVOT Cardiac Index 2015.0 cm???/min???m??? AV Area Cont Eq pk 1.7 cm??? MV Peak Velocity 79.6 cm/s MV Peak Gradient 2.5 mmHg MV Mean Velocity 37.2 cm/s MV Mean Gradient 0.7 mmHg MV Velocity Time Integral 26.9 cm MR Peak Velocity 518.6 cm/s MR Peak Gradient 107.6 mmHg Mitral E Point Velocity 81.0 cm/s Mitral A Point Velocity 41.1 cm/s Mitral E to A Ratio 2.0 MV Deceleration Time 264.0 ms MV E' Velocity 4.2 cm/s Mitral E to MV E' Ratio 19.1 TR Peak Velocity 300.2 cm/s TR Peak Gradient 36.1 mmHg Right Ventricular Systolic Press 41.1 mmHg PV Peak Velocity 114.6 cm/s PV Peak Gradient 5.3 mmHg FINDINGS Left Ventricle Normal LV size and wall thickness. Left ventricular ejection fraction is estimated at 35-40 %. Right Ventricle Normal right ventricular size. RVSP= 41mmHg. Right Atrium Normal right atrial size. Left Atrium Normal left atrial size. Mitral Valve Mild Mitral anterior leaflet calcification. Mild to moderate MR. Aortic Valve Trileaflet aortic valve. Mild AV calcification. Mild AI. No aortic stenosis. Tricuspid Valve Structurally normal tricuspid valve. Pulmonic Valve Pulmonic valve not well visualized. No pulmonic regurgitation. Pericardium Normal pericardium. Aorta Normal size aortic root . CONCLUSIONS Left ventricle is at upper limits of normal with mild global decrease in contractility estimated ejection fraction of 40%. Mild pulmonary hypertension. Mitral annular calcification with mild to moderate mitral regurgitation. Mild aortic insufficiency. No pericardial effusion Previewed by: Dr. Deborah Sanchez MD (Electronically Signed) Final Date: 10 June 2023 12:11
[2023-06-10] MEDS: DEXTROSE 5%-0.9% NACL 1,000 ML IV SCH ×2 (12:19→21:53)
--- NOTE | 2023-06-10 12:28 | P.PN ---
Subjective Progress Note Date: 06/10/23 Principal diagnosis: Carotid stenosis Patient seen and examined today as a follow-up for carotid stenosis, acute ischemic stroke. Patient is actually more awake and alert today. She is oriented to self. Still aphasic. Does have more movement and strength of her left upper and lower extremity. She is following more commands today and following directions. Awaiting further evaluation from speech therapy. Objective - Vital Signs Vital signs: Vital Signs Temp 98.0 F 06/10/23 08:04 Pulse 69 06/10/23 08:04 Resp 16 06/10/23 08:04 BP 195/76 06/10/23 08:04 Pulse Ox 96 06/10/23 08:04 FiO2 Intake & Output 06/09/23 06/10/23 06/10/23 18:59 06:59 18:59 Output Total 250 1250 Balance -250 -1250 Output: Urine 250 1250 Other: Voiding Method External Catheter - Exam General appearance: The patient is alert, oriented to self, appears encephalopathic. HET: Head is normocephalic and atraumatic. Pupils are equal and reactive. Neck: Supple. No carotid bruit heard. Heart: Regular. Lungs: Equal expansion, normal respiratory effort. Abdomen: Soft, nontender, nondistended. Extremities: Normal skin color and turgor. Neurological: Patient more awake and alert. Aphasic. She was able to follow some Simple commands. Tongue protrudes midline.bilateral upper and lower extremity weakness. Improved strength and movement of left upper and lower extremity. Right upper extremity week, right lower extremity weakness increased movement from yesterday. - Labs CBC & Chem 7: 06/09/23 08:10 06/09/23 08:10 Labs: Abnormal Lab Results - Last 24 Hours (Table) 06/08/23 06/08/23 06/08/23 Range/Units 06:18 06:18 07:00 WBC 10.91 H (4.50-10.00) X 10*3/uL Hgb 11.8 L (12.0-15.0) d/dL MCH 25.7 L (27.0-32.0) pg MCHC 30.0 L (32.0-37.0) d/dL RDW 15.1 H (11.5-14.5) % Neutrophils # 8.77 H (1.80-7.70) X 10*3/uL Eosinophils # 0.01 L (0.04-0.35) X 10*3/uL Carbon Dioxide 19.1 L (21.6-31.8) mmol/L Anion Gap 17.90 H (4.00-12.00) mmol/L BUN 33.3 H (9.0-27.0) mg/dL Est GFR (CKD-EPI) 47 L (>=60) BUN/Creatinine Ratio 27.75 H (12.00-20.00) Ratio Glucose 123 H (70-110) mg/dL POC Glucose (mg/dL) (70-110) mg/dL Magnesium (1.6-2.3) mg/dL HDL Cholesterol 39.50 L (40.00-60.00) mg/dL Vitamin B12 >1800.0 H (200.0-944.0) pg/mL 06/09/23 06/09/23 06/09/23 Range/Units 08:10 08:10 11:42 WBC 10.7 H (4.50-10.00) X 10*3/uL Hgb (12.0-15.0) d/dL MCH (27.0-32.0) pg MCHC (32.0-37.0) d/dL RDW (11.5-14.5) % Neutrophils # 8.4 H (1.80-7.70) X 10*3/uL Eosinophils # (0.04-0.35) X 10*3/uL Carbon Dioxide (21.6-31.8) mmol/L Anion Gap (4.00-12.00) mmol/L BUN 22 H (9.0-27.0) mg/dL Est GFR (CKD-EPI) (>=60) BUN/Creatinine Ratio (12.00-20.00) Ratio Glucose 160 H (70-110) mg/dL POC Glucose (mg/dL) 170 H (70-110) mg/dL Magnesium (1.6-2.3) mg/dL HDL Cholesterol (40.00-60.00) mg/dL Vitamin B12 (200.0-944.0) pg/mL 06/09/23 06/09/23 06/09/23 Range/Units 16:43 18:30 19:49 WBC (4.50-10.00) X 10*3/uL Hgb (12.0-15.0) d/dL MCH (27.0-32.0) pg MCHC (32.0-37.0) d/dL RDW (11.5-14.5) % Neutrophils # (1.80-7.70) X 10*3/uL Eosinophils # (0.04-0.35) X 10*3/uL Carbon Dioxide (21.6-31.8) mmol/L Anion Gap (4.00-12.00) mmol/L BUN (9.0-27.0) mg/dL Est GFR (CKD-EPI) (>=60) BUN/Creatinine Ratio (12.00-20.00) Ratio Glucose (70-110) mg/dL POC Glucose (mg/dL) 154 H 154 H (70-110) mg/dL Magnesium 1.5 L (1.6-2.3) mg/dL HDL Cholesterol (40.00-60.00) mg/dL Vitamin B12 (200.0-944.0) pg/mL 06/10/23 Range/Units 06:04 WBC (4.50-10.00) X 10*3/uL Hgb (12.0-15.0) d/dL MCH (27.0-32.0) pg MCHC (32.0-37.0) d/dL RDW (11.5-14.5) % Neutrophils # (1.80-7.70) X 10*3/uL Eosinophils # (0.04-0.35) X 10*3/uL Carbon Dioxide (21.6-31.8) mmol/L Anion Gap (4.00-12.00) mmol/L BUN (9.0-27.0) mg/dL Est GFR (CKD-EPI) (>=60) BUN/Creatinine Ratio (12.00-20.00) Ratio Glucose (70-110) mg/dL POC Glucose (mg/dL) 157 H (70-110) mg/dL Magnesium (1.6-2.3) mg/dL HDL Cholesterol (40.00-60.00) mg/dL Vitamin B12 (200.0-944.0) pg/mL Assessment and Plan Assessment: 1. Altered mental status changes 2. Acute ischemic stroke with change right cerebellum per brain CT 3. Right critical ICA stenosis per carotid duplex, appears to be short segment occlusion of right ICA on CT angiogram head and neck 4. Atrial fibrillation 5. Hypertension 6. Diabetes mellitus 7. Hyperlipidemia Plan: 1. CT angiogram head and neck ordered and reviewed personally by Dr. Asher 2. Recommend diagnostic angiogram outpatient 3. Recommend dual antiplatelet therapy once patient is able to swallow or NG tube placed 4. Discussed patient with neurology, they agree likely not related to right carotid. Agree with Outpatient angiogram 5. Speech, OT and PT on consult 6. Await recommendations from cardiology 7. Recommend outpatient follow-up Thank you for this consultation, we will be on standby if further needed. The impression and plan of care has been dictated as directed. Dr. Asher I performed a history and examination of this patient, discussed the same with the dictator. I agree with the dictator's note ,documented as a scribe. Any additional findings or plans will be noted.
--- NOTE | 2023-06-10 12:41 | P.PN ---
Subjective Progress Note Date: 06/10/23 HISTORY OF PRESENT ILLNESS: This is a 77-year-old female with a past medical history significant for hypertension, diabetes, sick sinus syndrome with previous pacemaker implantation, and persistent atrial fibrillation. Patient follows in the office with Dr. Nassar. We have been asked to see the patient in consultation for atrial fibrillation. Patient examined at the bedside. Documentation reveals that patient has been bradycardic. Upon reviewing telemetry, patient is in atri al fibrillation with controlled ventricular rate. Patient is having some PVCs which makes her heart rate appears slower than it really is. Patient presented to the hospital with altered mental status. CAT scan of the brain was concerning for acute ischemic change in the right cerebellum. Patient is followed by neurology and vascular surgery. Patient is unable to provide any information. Patient has not been on anticoagulation for atrial fibrillation in the past due to retinal hemorrhage. * EKG reveals atrial fibrillation with paced beats. T-wave inversions in inferior leads; seen on previous EKG in May 2022 * Chest xray negative for acute process * Laboratory data: WBC 13.3. Hemoglobin 12.6. Platelet count 274. Sodium 138. Potassium 4.6. BUN 42. Creatinine 1.34. Troponin negative 1. TSH 1.74. * Current home cardiac medications include losartan 50 mg daily, Toprol-XL 50 mg twice daily, levothyroxine 88 g daily.. * Most recent echocardiogram obtained in December 2021 revealed ejection fraction 45-50% mild MR, mild TR, mild pulmonary hypertension * Cardiac catheterization history: Unknown 06/10 Patient is seen today in follow-up. Patient does not seem to be able to follow any direction. She remains confused. She was started on clonidine patch y 0.1 mg and this morning blood pressure is 151/104 heart rate is in the 70s, pulse ox 90% on 2 L. CBC is within normal limits. Sodium 142, potassium 3.9, BUN 21 creatinine 1.06. Total bilirubin 1.7, AST 81, ALT 99, alkaline phosphatase 127. PHYSICAL EXAM: VITAL SIGNS: Reviewed. GENERAL: Well-developed in no acute distress. HEENT: Head is normocephalic. Pupils are equal, round. Sclerae anicteric. Mucous membranes of the mouth are dry. LUNGS: Respirations even and unlabored. Lungs essentially clear to auscultation bilaterally. HEART: Irregular rate and rhythm. S1 and S2 heard. ABDOMEN: Soft. Nondistended. Nontender. EXTREMITIES: Normal range of motion. No clubbing or cyanosis. Peripheral pulses intact. No lower extremity edema NEUROLOGIC: Patient confused upon examination ASSESSMENT: Metabolic encephalopathy Persistent atrial fibrillation; not on oral anticoagulation secondary to history of retinal hemorrhage History of permanent pacemaker implantation, 2021 secondary to sick sinus syndrome History of retinal hemorrhage Hypertension Diabetes Obstructive sleep apnea History of nonsustained ventricular tachycardia Elevated liver function test PLAN: Patient is currently nothing by mouth, speech therapy is following Continue patient on clonidine patch 0.1mg/24h and add an additional clonidine patch 0.1 mg per 24 hours today to equal 0.2 mg. Nurse practitioner note has been reviewed by physician. Signing provider agrees with the documented findings, assessment, and plan of care. Objective - Vital Signs Vital signs: Vital Signs Temp 98.0 F 06/10/23 08:04 Pulse 69 06/10/23 08:04 Resp 16 06/10/23 08:04 BP 195/76 06/10/23 08:04 Pulse Ox 96 06/10/23 08:04 FiO2 Intake & Output 06/09/23 06/10/23 06/10/23 18:59 06:59 18:59 Output Total 250 1250 Balance -250 -1250 Output: Urine 250 1250 Other: Voiding Method External Catheter - Labs CBC & Chem 7: 06/09/23 08:10 06/09/23 08:10 Labs: Abnormal Lab Results - Last 24 Hours (Table) 06/08/23 06/08/23 06/08/23 Range/Units 06:18 06:18 07:00 WBC 10.91 H (4.50-10.00) X 10*3/uL Hgb 11.8 L (12.0-15.0) d/dL MCH 25.7 L (27.0-32.0) pg MCHC 30.0 L (32.0-37.0) d/dL RDW 15.1 H (11.5-14.5) % Neutrophils # 8.77 H (1.80-7.70) X 10*3/uL Eosinophils # 0.01 L (0.04-0.35) X 10*3/uL Carbon Dioxide 19.1 L (21.6-31.8) mmol/L Anion Gap 17.90 H (4.00-12.00) mmol/L BUN 33.3 H (9.0-27.0) mg/dL Est GFR (CKD-EPI) 47 L (>=60) BUN/Creatinine Ratio 27.75 H (12.00-20.00) Ratio Glucose 123 H (70-110) mg/dL POC Glucose (mg/dL) (70-110) mg/dL Magnesium (1.6-2.3) mg/dL HDL Cholesterol 39.50 L (40.00-60.00) mg/dL Vitamin B12 >1800.0 H (200.0-944.0) pg/mL 06/09/23 06/09/23 06/09/23 Range/Units 11:42 16:43 18:30 WBC (4.50-10.00) X 10*3/uL Hgb (12.0-15.0) d/dL MCH (27.0-32.0) pg MCHC (32.0-37.0) d/dL RDW (11.5-14.5) % Neutrophils # (1.80-7.70) X 10*3/uL Eosinophils # (0.04-0.35) X 10*3/uL Carbon Dioxide (21.6-31.8) mmol/L Anion Gap (4.00-12.00) mmol/L BUN (9.0-27.0) mg/dL Est GFR (CKD-EPI) (>=60) BUN/Creatinine Ratio (12.00-20.00) Ratio Glucose (70-110) mg/dL POC Glucose (mg/dL) 170 H 154 H (70-110) mg/dL Magnesium 1.5 L (1.6-2.3) mg/dL HDL Cholesterol (40.00-60.00) mg/dL Vitamin B12 (200.0-944.0) pg/mL 06/09/23 06/10/23 Range/Units 19:49 06:04 WBC (4.50-10.00) X 10*3/uL Hgb (12.0-15.0) d/dL MCH (27.0-32.0) pg MCHC (32.0-37.0) d/dL RDW (11.5-14.5) % Neutrophils # (1.80-7.70) X 10*3/uL Eosinophils # (0.04-0.35) X 10*3/uL Carbon Dioxide (21.6-31.8) mmol/L Anion Gap (4.00-12.00) mmol/L BUN (9.0-27.0) mg/dL Est GFR (CKD-EPI) (>=60) BUN/Creatinine Ratio (12.00-20.00) Ratio Glucose (70-110) mg/dL POC Glucose (mg/dL) 154 H 157 H (70-110) mg/dL Magnesium (1.6-2.3) mg/dL HDL Cholesterol (40.00-60.00) mg/dL Vitamin B12 (200.0-944.0) pg/mL
--- NOTE | 2023-06-10 12:49 | CT ---
EXAMINATION TYPE: CT angio head neck DATE OF EXAM: 06/09/2023 COMPARISON: None HISTORY: weakness, ams CT DLP: 450.1 mGycm CONTRAST: Performed with IV Contrast, patient injected with 65cc mL of Isovue 370. Combination Contrast CTA cervical carotids and [place] CTA cervical carotids with 3-D recons truction Contrast CTA of the cervical carotids was performed 3-D reconstruction imaging obtained at a separate workstation. Right carotid system: Mild plaque is seen of the right common carotid artery. There is moderate plaq ue also noted at the carotid bulb and proximal ICA. Streak artifact limits evaluation. There is high- grade stenosis noted greater then 90% with reconstitution distally. ECA is patent. Right vertebral a rtery appears unremarkable. Left carotid system: Mild plaque is seen of the left common carotid artery. There is extensive plaque proximal left ICA with complete occlusion noted ECA is patent. Left vertebral artery appears unremar kable. IMPRESSION: 1. Occlusion left ICA. 2. Critical stenosis right ICA greater than 90% with reconstitution distally. CTA [place] with 3-D reconstruction Contrast CTA of the [place] was performed 3-D reconstruction imaging obtained at a separate workstation. Vertebrobasilar system appears to be patent. Occlusion left ICA. JACKSON, MCA and CURRICULUM COORDINATOR branches appear pat ent.. I do not see evidence for sizable aneurysm or vascular malformation. Please note MRI provides greater sensitivity and specificity. Visualized brain appears grossly unremarkable. IMPRESSION: 1. Limited CTA of the intracranial vasculature given osseous contamination. Poor visualization of all branch vessels although JACKSON, MCA and CURRICULUM COORDINATOR branches appear patent. NASCET criteria was used in interpretation of this exam?
--- NOTE | 2023-06-10 12:51 | CT ---
EXAMINATION TYPE: CT brain wo con DATE OF EXAM: 06/10/2023 COMPARISON: 06/08/2023 HISTORY: AMS CT DLP: 1100.[address] of the brain was performed. The ventricles, basal cisterns and sulci overlying the cerebral convexities demonstrate mild enlargem ent. Recently noted right cerebellar decreased attenuation is less prominent on today's study and may have been artifactual in nature. Correlate clinically. There is no evidence for intracranial hemorrhage or sulcal effacement. There is decreased attenuation about the periventricular white matter and deep white matter of both c erebral hemispheres, compatible with chronic small vessel ischemia. Differential diagnosis does inclu de demyelination. No mass effects are seen.No midline shift. Osseous calvarium is intact. If symptoms persist consider MRI. IMPRESSION: 1. Age related atrophic and chronic small vessel ischemic change without acute intracranial process s een at this time.
--- NOTE | 2023-06-10 13:18 | P.PN ---
Subjective Progress Note Date: 06/10/23 I am following-up with patient and per nurse she felt minimally more responsiveness. Objective - Vital Signs Vital signs: Vital Signs Temp 98.0 F 06/10/23 08:04 Pulse 50 L 06/10/23 12:16 Resp 16 06/10/23 12:16 BP 183/77 06/10/23 12:16 Pulse Ox 94 L 06/10/23 12:16 FiO2 Intake & Output 06/09/23 06/10/23 06/10/23 18:59 06:59 18:59 Output Total 250 1250 Balance -250 -1250 Output: Urine 250 1250 Other: Voiding Method External Catheter External Catheter - Exam General: Lying in bed and is not in acute distress. Neuro: Limited. The patient is awake but is only repeating phrases stated to her. She was able to follow few simple commands such as closing her eyes, sticking her tongue out again just as yesterday. Has aphasia and appears severe expressive aphasia. Pupils are round, equal and reactive to light. Pupils are 3mm bilaterally. No facial weakness. No dysarthria from limited language. Motor: Strength: No movement over the right side and upon trying to lift she was in pain. Lifting left upper and lower above gravity. Some of the workup during his hospital visit consisted of: Ammonia level is less than 9 B12 is more than 1800 Folate is 9.30 TSH is 1.740 Lipid panel triglycerides 87, cholesterol is 164, LDLs 107 and HDL is [address] of the head is reported as degenerative and remote ischemic change with the definite of acute hemorrhage or mass effect. EKG is reported as atrial fibrillation with slow ventricular response. ST and deviation and moderate ST wave abnormality. Consider inferior ischemia. Repeat CT head is reported as correlate for acute ischemic change right cerebellum. Otherwise age-related atrophic and chronic small vessel ischemic changes. I personally reviewed that CT and I do see that there is hypo-density over the cerebellum but I feel it's hard to assess on the CT and MRI is more sensitive Carotid duplex was reported as there is marked velocity increase within the right internal carotid artery. A critical stenosis is likely present. Loss of the within the left internal carotid is low. However ventricle flow within critical stenosis can have diminished velocities. Routine EEG is abnormal. The background slowing suggestive of moderate encephalopathy. Otherwise there is no focal slowing, epileptiform discharges or seizure on the EEG. During this recording the heart rate was in the 20s to 40s per the bi technical lead and recommend cardiology consultation. The echo is reported as left ventricular is an upper limits of normal with mild global decrease in contractility estimated ejection fraction of 40%. Mild pulmonary hypertension. Mitral annular calcification with mild to moderate ultra regurgitation. Mild aortic insufficiency. No pericardial effusion. - Labs CBC & Chem 7: 06/09/23 08:10 06/09/23 08:10 Labs: Abnormal Lab Results - Last 24 Hours (Table) 06/08/23 06/08/23 06/09/23 Range/Units 06:18 07:00 16:43 WBC 10.91 H (4.50-10.00) X 10*3/uL Hgb 11.8 L (12.0-15.0) d/dL MCH 25.7 L (27.0-32.0) pg MCHC 30.0 L (32.0-37.0) d/dL RDW 15.1 H (11.5-14.5) % Neutrophils # 8.77 H (1.80-7.70) X 10*3/uL Eosinophils # 0.01 L (0.04-0.35) X 10*3/uL POC Glucose (mg/dL) 154 H (70-110) mg/dL Magnesium (1.6-2.3) mg/dL HDL Cholesterol 39.50 L (40.00-60.00) mg/dL 06/09/23 06/09/23 06/10/23 Range/Units 18:30 19:49 06:04 WBC (4.50-10.00) X 10*3/uL Hgb (12.0-15.0) d/dL MCH (27.0-32.0) pg MCHC (32.0-37.0) d/dL RDW (11.5-14.5) % Neutrophils # (1.80-7.70) X 10*3/uL Eosinophils # (0.04-0.35) X 10*3/uL POC Glucose (mg/dL) 154 H 157 H (70-110) mg/dL Magnesium 1.5 L (1.6-2.3) mg/dL HDL Cholesterol (40.00-60.00) mg/dL 06/10/23 Range/Units 11:33 WBC (4.50-10.00) X 10*3/uL Hgb (12.0-15.0) d/dL MCH (27.0-32.0) pg MCHC (32.0-37.0) d/dL RDW (11.5-14.5) % Neutrophils # (1.80-7.70) X 10*3/uL Eosinophils # (0.04-0.35) X 10*3/uL POC Glucose (mg/dL) 159 H (70-110) mg/dL Magnesium (1.6-2.3) mg/dL HDL Cholesterol (40.00-60.00) mg/dL Assessment and Plan Assessment: This is a 77-year-old woman who presented because of altered mental status appeared unknown last normal state. Her cousin was at bedside is not a great historian but she stated that the patient usually walks with a cane or walker and unknown if she has one deficit over the other and the cousin does not feel like she has history of seizures but patient is on Keppra at home. On e xamination I felt the patient is moving the left side more than the right side is severely encephalopathic Right-sided significant hemiparesis, aphasia and some confusion due to acute ischemic stroke especially with a history of atrial fibrillation and she is not on any anticoagulation or antiplatelet prior to this. Repeat CT of the head shows hypodensity over the right cerebellar. No IV TPA since unknown last normal and the risk outweigh the benefit. History of Atrial fibrillation and is not on any anticoagulation or antiplatelets prior. Seems that the patient was not on any anticoagulation secondary to history of retinal hemorrhage. History of pacemaker placement in 2021 secondary due to sick sinus syndrome Likely critical stenosis is likely present over the right ICA per carotid dup aron. This seems asymptomatic since would not explain her acute neurological deficit Episodes of bradycardia during this visit Escalated hypertension History of stroke Diabetes mellitus History of hypertension 304 retinal hemorrhage History of sleep apnea on CPAP Plan: Cannot obtain MRI since has pacemaker. I will get repeat CT head. Vascular surgery was consulted for the carotid stenosis and the ordered CT angiography of the head and neck: pending report. I spoke with vascular and they recommend diagnostic as outpatient and no intervention. Patient was started on aspirin 300 mg suppository by the primary team. I started the patient on Lipitor 80 mg daily at bedtime for secondary stroke prophylaxis and she'll receive it once she is able to swallow or gets an NG or PEG tube. Continue neuro checks. Cardiac monitoring Cardiology is consulted by the primary team because of the patient's atrial fibrillation Defer the rest of the medical management to primary team For DVT prophylaxis as are the patient on subcu heparin 5000 units every 12 hours Plan discussed with the primary team and the patient's nurse Will continue to follow Time with Patient: Less than 30
--- NOTE | 2023-06-10 15:23 | P.PN ---
Subjective Progress Note Date: 06/10/23 77 years old female with past medical history of Atrial Fibrillation, Diabetes Mellitus, Hyperlipidemia, Hypertension, Sleep Apnea/CPAP/BIPAP Patient is seen in the emergency room, she was lying in bed awake and looking mainly to the left side When asking the patient any question she answers with her for number for example and ask her about her name, orientation questions or her symptoms are because of presentation she just answered by given her no phone number. She does not follow commands appropriately and it looks that she has increased on on the right side with some flexion deformity. No further information could be obtained from the patient. No family at bedside. Temperature 97.5, heart rate 50, blood pressure is within the reference range She had mild leukocytosis of 13.3. Rest of CBC is unremarkable. INR is 1.1. Creatinine is elevated at 1.34 which is close to baseline of 1.0-1.2 Liver enzymes not elevated. Ammonia less than 9. Troponin negative. Serum alcohol less than 10. Viruses undetected including influenza and RSV CT of the brain: Degenerative and remote ischemic changes with no definitive acute process Patient is started on normal saline in the emergency room and the neurologist consulted Objective - Vital Signs Vital signs: Vital Signs Temp 98.0 F 06/10/23 08:04 Pulse 69 06/10/23 08:04 Resp 16 06/10/23 08:04 BP 195/76 06/10/23 08:04 Pulse Ox 96 06/10/23 08:04 FiO2 Intake & Output 06/09/23 06/10/23 06/10/23 18:59 06:59 18:59 Output Total 250 1250 Balance -250 -1250 Output: Urine 250 1250 Other: Voiding Method External Catheter - Exam GENERAL: The patient is confused , no follow commands, not answering question,, not in any acute distress. Well developed, well nourished. HEENT: Pupils are round and equally reacting to light. EOMI. No scleral icterus. No conjunctival pallor. Normocephalic, atraumatic. No pharyngeal erythema. No thyromegaly. CARDIOVASCULAR: S1 and S2 present. No murmurs, rubs, or gallops. PULMONARY: Chest is clear to auscultation, no wheezing , no crackles. ABDOMEN: Soft, nontender, nondistended, normoactive bowel sounds. No palpable organomegaly. MUSCULOSKELETAL: No joint swelling or deformity. EXTREMITIES: No cyanosis, clubbing, or pedal edema. -NEUROLOGICAL: right hemiparensis with increased tone, exam is limited by the pt condition. SKIN: No rashes. no petechiae. - Labs CBC & Chem 7: 06/09/23 08:10 06/09/23 08:10 Labs: Abnormal Lab Results - Last 24 Hours (Table) 06/08/23 06/08/23 06/08/23 Range/Units 06:18 06:18 07:00 WBC 10.91 H (4.50-10.00) X 10*3/uL Hgb 11.8 L (12.0-15.0) d/dL MCH 25.7 L (27.0-32.0) pg MCHC 30.0 L (32.0-37.0) d/dL RDW 15.1 H (11.5-14.5) % Neutrophils # 8.77 H (1.80-7.70) X 10*3/uL Eosinophils # 0.01 L (0.04-0.35) X 10*3/uL Carbon Dioxide 19.1 L (21.6-31.8) mmol/L Anion Gap 17.90 H (4.00-12.00) mmol/L BUN 33.3 H (9.0-27.0) mg/dL Est GFR (CKD-EPI) 47 L (>=60) BUN/Creatinine Ratio 27.75 H (12.00-20.00) Ratio Glucose 123 H (70-110) mg/dL POC Glucose (mg/dL) (70-110) mg/dL Magnesium (1.6-2.3) mg/dL HDL Cholesterol 39.50 L (40.00-60.00) mg/dL Vitamin B12 >1800.0 H (200.0-944.0) pg/mL 06/09/23 06/09/23 06/09/23 Range/Units 11:42 16:43 18:30 WBC (4.50-10.00) X 10*3/uL Hgb (12.0-15.0) d/dL MCH (27.0-32.0) pg MCHC (32.0-37.0) d/dL RDW (11.5-14.5) % Neutrophils # (1.80-7.70) X 10*3/uL Eosinophils # (0.04-0.35) X 10*3/uL Carbon Dioxide (21.6-31.8) mmol/L Anion Gap (4.00-12.00) mmol/L BUN (9.0-27.0) mg/dL Est GFR (CKD-EPI) (>=60) BUN/Creatinine Ratio (12.00-20.00) Ratio Glucose (70-110) mg/dL POC Glucose (mg/dL) 170 H 154 H (70-110) mg/dL Magnesium 1.5 L (1.6-2.3) mg/dL HDL Cholesterol (40.00-60.00) mg/dL Vitamin B12 (200.0-944.0) pg/mL 06/09/23 06/10/23 Range/Units 19:49 06:04 WBC (4.50-10.00) X 10*3/uL Hgb (12.0-15.0) d/dL MCH (27.0-32.0) pg MCHC (32.0-37.0) d/dL RDW (11.5-14.5) % Neutrophils # (1.80-7.70) X 10*3/uL Eosinophils # (0.04-0.35) X 10*3/uL Carbon Dioxide (21.6-31.8) mmol/L Anion Gap (4.00-12.00) mmol/L BUN (9.0-27.0) mg/dL Est GFR (CKD-EPI) (>=60) BUN/Creatinine Ratio (12.00-20.00) Ratio Glucose (70-110) mg/dL POC Glucose (mg/dL) 154 H 157 H (70-110) mg/dL Magnesium (1.6-2.3) mg/dL HDL Cholesterol (40.00-60.00) mg/dL Vitamin B12 (200.0-944.0) pg/mL Assessment and Plan Assessment: Altered mental status with possible left gaze fixation with possible right hemiparesis Rule out intracranial causes mild acute kidney injury Chronic atrial fibrillation with bradycardia on admission, Status post pacemaker. Previously patient declined to take anticoagulation non adherence to treatment sever carotid artery dis h/o retinal hemorrhage history of seizure on Keppra chronic kidney disease stage III Hypertension, permissive hypertension for 24-48 hours Hyperlipidemia History of sleep apnea Diabetes mellitus Plan: Continue with a neuro check aspirin as benefit more than risk ,i called next of kin to discuss management plan and response is pending for now Continue telemetry monitoring Neurology consult vascular surgery team on the case Cardiology consult Continue with insulin sliding scale Resume Keppra Hold metoprolol given her bradycardia WBC is mildly elevated but looks concentrated sample as hemoglobin and a platelet count are more than baseline. We'll give IV hydration and reassess Check bladder scan and send urine analysis and urine drug screen Labs and medication were reviewed.. Continue same treatment. Continue with symptomatic treatment. Resume home medication. Monitor labs and vitals. DVT and GI prophylaxis. Further recommendations as per clinical course of the patient DVT prophylaxis: heparin GI Prophylaxis: Pepcid PT/OT: deferred Prognosis is guarded
[2023-06-10 16:39] LABS: Glucose,Whole Blood 173 mg/dL (70-110)
[2023-06-10 19:47] LABS: Glucose,Whole Blood 127 mg/dL (70-110)
[2023-06-10] MEDS: ATORVASTATIN 80 MG TAB PO SCH (20:00)
[2023-06-11 06:22] LABS: Glucose,Whole Blood 159 mg/dL (70-110)
[2023-06-11] MEDS: INSULIN ASPART (NovoLOG) 100 UNIT/ML VIAL SQ SCH ×4 (06:37→22:04)
[2023-06-11] MEDS: FAMOTIDINE 20 MG/2 ML VIAL IV SCH (09:11)
[2023-06-11] MEDS: HEPARIN SODIUM,PORCINE 5,000 UNIT/ML 1 ML VIAL SQ SCH ×2 (09:11→22:04)
[2023-06-11] MEDS: LEVOTHYROXINE IVP 100 MCG/5 ML VIAL IV SCH (09:12)
[2023-06-11] MEDS: levETIRAcetam IV 500 MG/5 ML VIAL IVP SCH ×2 (09:12→22:04)
[2023-06-11] MEDS: ASPIRIN 300 MG SUPP RECTAL SCH (09:12)
[2023-06-11 09:52] LABS: Basophils % (A) 0 %; Eosinophils # (A) 0.2 k/uL (0-0.7); Eosinophils % (A) 2 %; HGB 12.6 gm/dL (11.4-16.0); Lymphocytes # (A) 0.9 k/uL (1.0-4.8); Lymphocytes % (A) 9 %; MCH 26.7 pg (25.0-35.0); MCHC 31.5 g/dL (31.0-37.0); MCV 84.8 fL (80.0-100.0); Mean Platelet Volume 8.4; Monocytes # (A) 0.8 k/uL (0-1.0); Monocytes % (A) 9 %; Neutrophils # (A) 7.5 k/uL (1.3-7.7); Neutrophils % (A) 78 %; Platelet Count 236 k/uL (150-450); RBC 4.72 m/uL (3.80-5.40); RDW 14.8 % (11.5-15.5); WBC 9.7 k/uL (3.8-10.6)
[2023-06-11 10:00] LABS: African American GFR (CKD) 82 (>60 ml/min/1.73 sqM); Anion Gap 9 mmol/L; Blood Urea Nitrogen 14 mg/dL (7-17); Calcium 8.5 mg/dL (8.4-10.2); Carbon Dioxide 22 mmol/L (22-30); Chloride 106 mmol/L (98-107); Glucose 150 mg/dL (74-99); Magnesium 1.8 mg/dL (1.6-2.3); Non-African American GFR(CKD) 71 (>60 ml/min/1.73 sqM); Potassium 3.8 mmol/L (3.5-5.1); Sodium 137 mmol/L (137-145)
[2023-06-11] MEDS ORDERED: cloNIDine 0.3 MG/24HR PATCH TRANSDERM SCH (11:00)
[2023-06-11 11:47] LABS: Glucose,Whole Blood 145 mg/dL (70-110)
[2023-06-11] MEDS: DEXTROSE 5%-0.9% NACL 1,000 ML IV SCH (12:21)
--- NOTE | 2023-06-11 12:48 | P.PN ---
Subjective Progress Note Date: 06/11/23 The patient is a 77-year-old female with past medical history of hypertension, diabetes, sick sinus syndrome, and persistent atrial fibrillation who presented to the hospital with mental status changes. She was found to have metabolic encephalopathy. Computed tomography scan of the brain was concerning for acute ischemic changes to the right cerebellum. Patient was not on anticoagulation due to history of retinal hemorrhage. The patient is responsive to physical touch. Does not answer to questions. GENERAL: Well-appearing, well-nourished and in no acute distress. NECK: Supple without JVD or thyromegaly. LUNGS: Breath sounds diminished to auscultation bilaterally. Respiration equal and unlabored. No wheezes, rales or rhonchi. HEART: Irregular rate and rhythm without murmurs, rubs or gallops. S1 and S2 heard. EXTREMITIES: Normal range of motion, no edema. No clubbing or cyanosis. Peripheral pulses intact and strong. VITALS: Blood pressure 187/83, pulse 56, respiratory rate 16, afebrile, 97% SpO2 on room air TELEMETRY: Atrial fibrillation IMPRESSION: Metabolic encephalopathy Possible CVA Persistent atrial fibrillation, anticoagulation being held due to history of retinal hemorrhage Sick sinus syndrome Status post permanent pacemaker Hypertension Diabetes Obstructive sleep apnea PLAN: Increase clonidine patch to 0.3 Continue supportive treatment Further recommendations. Based on clinical course I am dictating on behalf of Dr Carlos Nassar's history/physical and assessmen t/plan. Objective - Vital Signs Vital signs: Vital Signs Temp 98.7 F 06/11/23 08:00 Pulse 56 L 06/11/23 08:00 Resp 16 06/11/23 08:00 BP 187/83 06/11/23 08:00 Pulse Ox 97 06/11/23 08:00 FiO2 Intake & Output 06/10/23 06/11/23 06/11/23 18:59 06:59 18:59 Intake Total 350 Output Total 1000 Balance 350 -1000 Intake: IV 350 Dextrose 5%-0.9% NaCl 1, 150 000 ml @ 75 mls/hr IV . [id number] [place] Rx#:[id number] Magnesium Sulfate-D5w Pmx 200 1 gm In Dextrose/Water 1 100ml.bag @ 100 mls/hr IVPB Q1H [place] Rx#: [id number] Output: Urine 1000 Other: Voiding Method External Catheter External Catheter External Catheter - Labs CBC & Chem 7: 06/11/23 08:53 06/11/23 08:53 Labs: Abnormal Lab Results - Last 24 Hours (Table) 06/10/23 06/10/23 06/11/23 Range/Units 16:37 19:45 06:11 Lymphocytes # (1.0-4.8) k/uL Glucose (74-99) mg/dL POC Glucose (mg/dL) 173 H 127 H 159 H (70-110) mg/dL 06/11/23 06/11/23 06/11/23 Range/Units 08:53 08:53 11:45 Lymphocytes # 0.9 L (1.0-4.8) k/uL Glucose 150 H (74-99) mg/dL POC Glucose (mg/dL) 145 H (70-110) mg/dL
--- NOTE | 2023-06-11 14:35 | P.PN ---
Subjective Progress Note Date: 06/11/23 I am following-up seeing the patient and she remains about the same. Objective - Vital Signs Vital signs: Vital Signs Temp 98.7 F 06/11/23 08:00 Pulse 56 L 06/11/23 08:00 Resp 16 06/11/23 08:00 BP 187/83 06/11/23 08:00 Pulse Ox 97 06/11/23 08:00 FiO2 Intake & Output 06/10/23 06/11/23 06/11/23 18:59 06:59 18:59 Intake Total 350 180 Output Total 1000 Balance 350 -1000 180 Intake: IV 350 Dextrose 5%-0.9% NaCl 1, 150 000 ml @ 75 mls/hr IV . [id number] [place] Rx#:[id number] Magnesium Sulfate-D5w Pmx 200 1 gm In Dextrose/Water 1 100ml.bag @ 100 mls/hr IVPB Q1H [place] Rx#: [id number] Oral 180 Output: Urine 1000 Other: Voiding Method External Catheter External Catheter External Catheter # Voids 1 - Exam General: Lying in bed and does not appear is not in acute distress. Neuro: Limited. Was sleeping. Upon waking her up would repeat phrases stated to her. Has right lower facial weakness. Some of the workup during his hospital visit consisted of: Ammonia level is less than 9 B12 is more than 1800 Folate is 9.30 TSH is 1.740 Lipid panel triglycerides 87, cholesterol is 164, LDLs 107 and HDL is [address] of the head is reported as degenerative and remote ischemic change with the definite of acute hemorrhage or mass effect. EKG is reported as atrial fibrillation with slow ventricular response. ST and deviation and moderate ST wave abnormality. Consider inferior ischemia. Repeat CT head is reported as correlate for acute ischemic change right cerebellum. Otherwise age-related atrophic and chronic small vessel ischemic changes. I personally reviewed that CT and I do see that there is hypo-density over the cerebellum but I feel it's hard to assess on the CT and MRI is more sensitive Carotid duplex was reported as there is marked velocity increase within the right internal carotid artery. A critical stenosis is likely present. Loss of the within the left internal carotid is low. However ventricle flow within critical stenosis can have diminished velocities. Routine EEG is abnormal. The background slowing suggestive of moderate encephalopathy. Otherwise there is no focal slowing, epileptiform discharges or seizure on the EEG. During this recording the heart rate was in the 20s to 40s per the technician support engineer and recommend cardiology consultation. 2D echo is reported as left ventricular is an upper limits of normal with mild global decrease in contractility estimated ejection fraction of 40%. Mild pulmonary hypertension. Mitral annular calcification with mild to moderate ultra regurgitation. Mild aortic insufficiency. No pericardial effusion. Repeat CT head: It is reported as age-related atrophic and chronic small vessel ischemic changes without acute intracranial process seen at this time. I personally reviewed the CT and I feel the patient has more obvious left Genu internal capsule ischemic stroke that was not seen that obvious on initial CT of the head on 06/07/2023 also feel like patient has had some hypodensity over the left puente radiata. CT angiography of the head and neck was reported as limited CT angiography of the intracranial vasculature given the osseous contamination. Prior visualiz ation of all brach vessel although JACKSON, MCA and CRYSTAL ATTACHER appear patent. - Labs CBC & Chem 7: 06/11/23 08:53 06/11/23 08:53 Labs: Abnormal Lab Results - Last 24 Hours (Table) 06/10/23 06/10/23 06/11/23 Range/Units 16:37 19:45 06:11 Lymphocytes # (1.0-4.8) k/uL Glucose (74-99) mg/dL POC Glucose (mg/dL) 173 H 127 H 159 H (70-110) mg/dL 06/11/23 06/11/23 06/11/23 Range/Units 08:53 08:53 11:45 Lymphocytes # 0.9 L (1.0-4.8) k/uL Glucose 150 H (74-99) mg/dL POC Glucose (mg/dL) 145 H (70-110) mg/dL Assessment and Plan Assessment: This is a 77-year-old woman who presented because of altered mental status appeared unknown last normal state. Her cousin was at bedside is not a great historian but she stated that the patient usually walks with a cane or walker and unknown if she has one deficit over the other and the cousin does not feel like she has history of seizures but patient is on Keppra at home. On examination I felt the patient is moving the left side more than the right side is severely encephalopathic Right-sided significant hemiparesis including face, aphasia and some confusion due to acute ischemic stroke especially with a history of atrial fibrillation and she is not on any anticoagulation or antiplatelet prior to this. I felt she has left internal capusle stroke that is more appreciable compared initial CT. No IV TPA since unknown last normal and the risk outweigh the benefit. History of Atrial fibrillation and is not on any anticoagulation or antiplatelets prior. Seems that the patient was not on any anticoagulation secondary to history of retinal hemorrhage. History of pacemaker placement in 2021 secondary due to sick sinus syndrome Likely critical stenosis is likely present over the right ICA per carotid duplex. This seems asymptomatic since would not explain her acute neurological deficit Episodes of bradycardia during this visit Escalated hypertension History of stroke Diabetes mellitus History of hypertension 304 retinal hemorrhage History of sleep apnea on CPAP Plan: Cannot obtain MRI since has pacemaker. Vascular surgery was consulted for the carotid stenosisI spoke with vascular and they recommend diagnostic as outpatient and no intervention for asymptomatic right ICA. Patient was started on aspirin 300 mg suppository by the primary team. I st arted the patient on Lipitor 80 mg daily at bedtime for secondary stroke prophylaxis and she'll receive it once she is able to swallow or gets an NG or PEG tube. Continue neuro checks. Cardiac monitoring Cardiology is consulted by the primary team because of the patient's atrial fibrillation Defer the rest of the medical management to primary team For DVT prophylaxis as are the patient on subcu heparin 5000 units every 12 hours Will continue to follow Dr. Shaikh will start neurology service on 06/13/2023 A.M. Time with Patient: Less than 30
[2023-06-11 16:50] LABS: Glucose,Whole Blood 201 mg/dL (70-110)
[2023-06-11 19:35] LABS: Glucose,Whole Blood 165 mg/dL (70-110)
--- NOTE | 2023-06-11 20:39 | P.PN ---
Subjective Progress Note Date: 06/11/23 77 years old female with past medical history of Atrial Fibrillation, Diabetes Mellitus, Hyperlipidemia, Hypertension, Sleep Apnea/CPAP/BIPAP Patient is seen in the emergency room, she was lying in bed awake and looking mainly to the left side When asking the patient any question she answers with her for number for example and ask her about her name, orientation questions or her symptoms are because of presentation she just answered by given her no phone number. She does not follow commands appropriately and it looks that she has increased on on the right side with some flexion deformity. No further information could be obtained from the patient. No family at bedside. Temperature 97.5, heart rate 50, blood pressure is within the reference range She had mild leukocytosis of 13.3. Rest of CBC is unremarkable. INR is 1.1. Creatinine is elevated at 1.34 which is close to baseline of 1.0-1.2 Liver enzymes not elevated. Ammonia less than 9. Troponin negative. Serum alcohol less than 10. Viruses undetected including influenza and RSV CT of the brain: Degenerative and remote ischemic changes with no definitive acute process Patient is started on normal saline in the emergency room and the neurologist consulted 06/11/2023 Patient is seen and evaluated in room at bedside; patient is more awake and responsive Vital signs are reviewed and remained stable -- Patient has been evaluated by SAFETY PATROL OFFICER and is placed on a. Diet - Neurology on board and recommending to continue with aspirin and statin therapy; MRI is recommended but cannot be completed because of pacemaker - Patient has been evaluated by vascular surgery and no intervention for asymptomatic right RCA recommended vitamin patient Objective - Vital Signs Vital signs: Vital Signs Temp 97.9 F 06/10/23 20:00 Pulse 56 L 06/11/23 04:00 Resp 18 06/11/23 04:00 BP 182/82 06/11/23 04:00 Pulse Ox 95 06/11/23 04:00 FiO2 Intake & Output 06/10/23 06/11/23 06/11/23 18:59 06:59 18:59 Intake Total 350 Output Total 1000 Balance 350 -1000 Intake: IV 350 Dextrose 5%-0.9% NaCl 1, 150 000 ml @ 75 mls/hr IV . [id number] [facility] Rx#:[id number] Magnesium Sulfate-D5w Pmx 200 1 gm In Dextrose/Water 1 100ml.bag @ 100 mls/hr IVPB Q1H [facility] Rx#: [id number] Output: Urine 1000 Other: Voiding Method External Catheter External Catheter - Exam GENERAL: The patient is confused , no follow commands, not answering question,, not in any acute distress. Well developed, well nourished. HEENT: Pupils are round and equally reacting to light. EOMI. No scleral icterus. No conjunctival pallor. Normocephalic, atraumatic. No pharyngeal erythema. No thyromegaly. CARDIOVASCULAR: S1 and S2 present. No murmurs, rubs, or gallops. PULMONARY: Chest is clear to auscultation, no wheezing , no crackles. ABDOMEN: Soft, nontender, nondistended, normoactive bowel sounds. No palpable organomegaly. MUSCULOSKELETAL: No joint swelling or deformity. EXTREMITIES: No cyanosis, clubbing, or pedal edema. -NEUROLOGICAL: right hemiparensis with increased tone, exam is limited by the pt condition. SKIN: No rashes. no petechiae. - Labs CBC & Chem 7: 06/11/23 08:53 06/11/23 08:53 Labs: Abnormal Lab Results - Last 24 Hours (Table) 06/10/23 06/10/23 06/10/23 Range/Units 11:33 16:37 19:45 POC Glucose (mg/dL) 159 H 173 H 127 H (70-110) mg/dL 06/11/23 Range/Units 06:11 POC Glucose (mg/dL) 159 H (70-110) mg/dL Assessment and Plan Assessment: Altered mental status with possible left gaze fixation with possible right hemiparesis Rule out intracranial causes mild acute kidney injury Chronic atrial fibrillation with bradycardia on admission, Status post pacemaker. Previously patient declined to take anticoagulation non adherence to treatment sever carotid artery dis h/o retinal hemorrhage history of seizure on Keppra chronic kidney disease stage III Hypertension, permissive hypertension for 24-48 hours Hyperlipidemia History of sleep apnea Diabetes mellitus Plan: Continue with a neuro check aspirin as benefit more than risk ,i called next of kin to discuss management plan and response is pending for now Continue telemetry monitoring Neurology consult vascular surgery team on the case Cardiology consult Continue with insulin sliding scale Resume Keppra Hold metoprolol given her bradycardia WBC is mildly elevated but looks concentrated sample as hemoglobin and a platelet count are more than baseline. We'll give IV hydration and reassess Check bladder scan and send urine analysis and urine drug screen Labs and medication were reviewed.. Continue same treatment. Continue with symptomatic treatment. Resume home medication. Monitor labs and vitals. DVT and GI prophylaxis. Further recommendations as per clinical course of the patient DVT prophylaxis: heparin GI Prophylaxis: Pepcid PT/OT: deferred Prognosis is guarded
[2023-06-11] MEDS: ATORVASTATIN 80 MG TAB PO SCH (21:51)
[2023-06-12 03:07] LABS: Appearance,Urine Clear (Clear); Bilirubin,Urine Negative (Negative); Blood,Urine Negative (Negative); Color,Urine Yellow; Glucose,Urine (UA) 3+ (Negative); Ketones,Urine Negative (Negative); Leukocyte Esterase,Urine Negative (Negative); Mucus,Urine Rare /hpf; Nitrite,Urine Negative (Negative); Protein,Urine 1+ (Negative); RBC,Urine <1 /hpf (0-5); Specific Gravity,Urine 1.017 (1.001-1.035); Urobilinogen,Urine <2.0 mg/dL (<2.0); WBC,Urine 1 /hpf (0-5)
[2023-06-12] MEDS: DEXTROSE 5%-0.9% NACL 1,000 ML IV SCH ×2 (05:17→16:54)
[2023-06-12 06:02] LABS: Glucose,Whole Blood 166 mg/dL (70-110)
[2023-06-12] MEDS: INSULIN ASPART (NovoLOG) 100 UNIT/ML VIAL SQ SCH ×4 (07:02→20:47)
[2023-06-12 08:49] LABS: Basophils % (A) 0 %; Eosinophils # (A) 0.2 k/uL (0-0.7); Eosinophils % (A) 2 %; HCT 41.7 % (34.0-46.0); Lymphocytes # (A) 0.9 k/uL (1.0-4.8); Lymphocytes % (A) 10 %; MCH 26.3 pg (25.0-35.0); MCHC 31.3 g/dL (31.0-37.0); MCV 84.2 fL (80.0-100.0); Monocytes # (A) 0.6 k/uL (0-1.0); Monocytes % (A) 7 %; Neutrophils % (A) 79 %; Platelet Count 240 k/uL (150-450); RBC 4.96 m/uL (3.80-5.40); RDW 14.8 % (11.5-15.5); WBC 8.9 k/uL (3.8-10.6)
[2023-06-12] MEDS: ASPIRIN 300 MG SUPP RECTAL SCH (09:19)
[2023-06-12] MEDS: LEVOTHYROXINE IVP 100 MCG/5 ML VIAL IV SCH (09:26)
[2023-06-12] MEDS: HEPARIN SODIUM,PORCINE 5,000 UNIT/ML 1 ML VIAL SQ SCH ×2 (09:26→20:47)
[2023-06-12] MEDS: FAMOTIDINE 20 MG/2 ML VIAL IV SCH (09:26)
[2023-06-12 09:45] LABS: African American GFR (CKD) 89 (>60 ml/min/1.73 sqM); Anion Gap 7 mmol/L; Blood Urea Nitrogen 12 mg/dL (7-17); Calcium 8.3 mg/dL (8.4-10.2); Carbon Dioxide 25 mmol/L (22-30); Chloride 106 mmol/L (98-107); Glucose 157 mg/dL (74-99); Non-African American GFR(CKD) 77 (>60 ml/min/1.73 sqM); Potassium 3.8 mmol/L (3.5-5.1); Sodium 138 mmol/L (137-145)
[2023-06-12] MEDS: levETIRAcetam IV 500 MG/5 ML VIAL IVP SCH ×2 (10:02→20:46)
[2023-06-12 11:26] LABS: Glucose,Whole Blood 159 mg/dL (70-110)
--- NOTE | 2023-06-12 14:23 | P.PN ---
Subjective Progress Note Date: 06/12/23 This is Rony Carter NP, I'm dictating on behalf of Dr. Nassar's H&P and A&P. Patient was interviewed and examined. Patient is a 77-year-old female with a past medical history of hypertension, diabetes, sick sinus syndrome, persistent atrial fibrillation who presented to the hospital with mental status changes. Patient was found to have metabolic encephalopathy. Computed tomography scan of the brain was concerning for acute ischemic changes to the right cerebellum. Patient was not on anticoagulation due to history of retinal hemorrhage. The patient is responsive verbally this morning, however only responds with the phrase "okay". Patient is unable to answer any further questions appropriately. Clonidine was started at 0.3 mg patch every 7 days to help control the patient's blood pressure. There is been nominal improvement of the blood pressure, this will need to be monitored as the clonidine patch will take a few days to really kick in to work. Patient is unable take oral medications at this time. GENERAL: Well-appearing, well-nourished and in no acute distress. NECK: Supple without JVD or thyromegaly. LUNGS: Breath sounds clear to auscultation bilaterally. Respiration equal and unlabored. No wheezes, rales or rhonchi. HEART: Regular rate and rhythm without murmurs, rubs or gallops. S1 and S2 heard. EXTREMITIES: No edema. No clubbing or cyanosis. Peripheral pulses intact and strong. VITALS: Temp 97.7, pulse 59, respirations 15, blood pressure 169/83, O2 saturation 98% on room air TELEMETRY: Normal sinus rhythm LABS: White count 8.9, hemoglobin 13, platelets 240, sodium 138, potassium 3.8, chloride 106, BUN 12, creatinine 0.75, calcium 8.3 IMPRESSION: 1. Metabolic encephalopathy 2. Possible CVA 3. Persistent atrial fibrillation, anticoagulation being held due to history of retinal hemorrhage 4. Sick sinus syndrome 5. Status post permanent pacemaker 6. Hypertension 7. Diabetes 8. Obstructive sleep apnea PLAN: Continue clonidine 0.3 mg transdermal every 7 days. Continue supportive treatment. Further recommendations based on patient's clinical course. Objective - Vital Signs Vital signs: Vital Signs Temp 97.7 F 06/12/23 09:25 Pulse 53 L 06/12/23 12:18 Resp 16 06/12/23 12:18 BP 166/85 06/12/23 12:18 Pulse Ox 96 06/12/23 12:18 FiO2 Intake & Output 06/11/23 06/12/23 06/12/23 18:59 06:59 18:59 Intake Total 180 675 0 Output Total 800 427 Balance 180 -125 -427 Weight 49.9 kg Intake: IV 675 Dextrose 5%-0.9% NaCl 1, 675 000 ml @ 75 mls/hr IV . [id number] [facility] Rx#:[id number] Oral 180 0 0 Output: Urine 800 100 Straight 800 Post Void Residual 327 Other: Voiding Method External Catheter External Catheter External Catheter # Voids 1 - Labs CBC & Chem 7: 06/12/23 07:58 06/12/23 07:58 Labs: Abnormal Lab Results - Last 24 Hours (Table) 06/11/23 06/11/23 06/12/23 Range/Units 16:48 19:34 02:31 Lymphocytes # (1.0-4.8) k/uL Glucose (74-99) mg/dL POC Glucose (mg/dL) 201 H 165 H (70-110) mg/dL Calcium (8.4-10.2) mg/dL Urine Protein 1+ H (Negative) Urine Glucose (UA) 3+ H (Negative) Urine Mucus Rare H (None) /hpf 06/12/23 06/12/23 06/12/23 Range/Units 06:01 07:58 07:58 Lymphocytes # 0.9 L (1.0-4.8) k/uL Glucose 157 H (74-99) mg/dL POC Glucose (mg/dL) 166 H (70-110) mg/dL Calcium 8.3 L (8.4-10.2) mg/dL Urine Protein (Negative) Urine Glucose (UA) (Negative) Urine Mucus (None) /hpf 06/12/23 Range/Units 11:25 Lymphocytes # (1.0-4.8) k/uL Glucose (74-99) mg/dL POC Glucose (mg/dL) 159 H (70-110) mg/dL Calcium (8.4-10.2) mg/dL Urine Protein (Negative) Urine Glucose (UA) (Negative) Urine Mucus (None) /hpf
[2023-06-12 16:32] LABS: Glucose,Whole Blood 189 mg/dL (70-110)
--- NOTE | 2023-06-12 17:03 | P.PN ---
Subjective Progress Note Date: 06/12/23 Patient seen and examined. Essentially unchanged. States she is okay. Does not really talk much otherwise. Objective - Vital Signs Vital signs: Vital Signs Temp 97.7 F 06/12/23 09:25 Pulse 50 L 06/12/23 16:00 Resp 16 06/12/23 12:18 BP 170/84 06/12/23 16:00 Pulse Ox 99 06/12/23 16:00 FiO2 Intake & Output 06/11/23 06/12/23 06/12/23 18:59 06:59 18:59 Intake Total 180 675 0 Output Total 800 427 Balance 180 -125 -427 Weight 49.9 kg Intake: IV 675 Dextrose 5%-0.9% NaCl 1, 675 000 ml @ 75 mls/hr IV . [id number] [facility] Rx#:[id number] Oral 180 0 0 Output: Urine 800 100 Straight 800 Post Void Residual 327 Other: Voiding Method External Catheter External Catheter External Catheter # Voids 1 - Exam General is a pleasant female in no acute distress, laying in bed. States she is okay but does not answer questions otherwise. - Labs CBC & Chem 7: 06/12/23 07:58 06/12/23 07:58 Labs: Abnormal Lab Results - Last 24 Hours (Table) 06/11/23 06/12/23 06/12/23 Range/Units 19:34 02:31 06:01 Lymphocytes # (1.0-4.8) k/uL Glucose (74-99) mg/dL POC Glucose (mg/dL) 165 H 166 H (70-110) mg/dL Calcium (8.4-10.2) mg/dL Urine Protein 1+ H (Negative) Urine Glucose (UA) 3+ H (Negative) Urine Mucus Rare H (None) /hpf 06/12/23 06/12/23 06/12/23 Range/Units 07:58 07:58 11:25 Lymphocytes # 0.9 L (1.0-4.8) k/uL Glucose 157 H (74-99) mg/dL POC Glucose (mg/dL) 159 H (70-110) mg/dL Calcium 8.3 L (8.4-10.2) mg/dL Urine Protein (Negative) Urine Glucose (UA) (Negative) Urine Mucus (None) /hpf 06/12/23 Range/Units 16:24 Lymphocytes # (1.0-4.8) k/uL Glucose (74-99) mg/dL POC Glucose (mg/dL) 189 H (70-110) mg/dL Calcium (8.4-10.2) mg/dL Urine Protein (Negative) Urine Glucose (UA) (Negative) Urine Mucus (None) /hpf Assessment and Plan Assessment: Occluded left ICA High-grade right ICA stenosis altered mental status Right-sided hemiparesis Right ischemic stroke Plan: At this point the patient's overall ischemic changes do not appear to be due to her right internal carotid artery stenosis therefore no acute management however she does have severe and high-grade stenosis which would require intervention. Given her overall clinical picture, will need long discussion with appropriate family/POA to evaluate fitness and planning for surgery. Obviously this all can be done as an outpatient given the asymptomatic findings on this side. This was discussed with a friend at the bedside as well who was visiting. Vascular surgery will sign off at this time, please let us know if we can be of further assistance.
--- NOTE | 2023-06-12 17:40 | P.PN ---
Subjective Progress Note Date: 06/12/23 77 years old female with past medical history of Atrial Fibrillation, Diabetes Mellitus, Hyperlipidemia, Hypertension, Sleep Apnea/CPAP/BIPAP Patient is seen in the emergency room, she was lying in bed awake and looking mainly to the left side When asking the patient any question she answers with her for number for example and ask her about her name, orientation questions or her symptoms are because of presentation she just answered by given her no phone number. She does not follow commands appropriately and it looks that she has increased on on the right side with some flexion deformity. No further information could be obtained from the patient. No family at bedside. Temperature 97.5, heart rate 50, blood pressure is within the reference range She had mild leukocytosis of 13.3. Rest of CBC is unremarkable. INR is 1.1. Creatinine is elevated at 1.34 which is close to baseline of 1.0-1.2 Liver enzymes not elevated. Ammonia less than 9. Troponin negative. Serum alcohol less than 10. Viruses undetected including influenza and RSV CT of the brain: Degenerative and remote ischemic changes with no definitive acute process Patient is started on normal saline in the emergency room and the neurologist consulted 06/11/2023 Patient is seen and evaluated in room at bedside; patient is more awake and responsive Vital signs are reviewed and remained stable -- Patient has been evaluated by LICENSED PSYCHIATRIC TECHNICIAN and is placed on a. Diet - Neurology on board and recommending to continue with aspirin and statin therapy; MRI is recommended but cannot be completed because of pacemaker - Patient has been evaluated by vascular surgery and no intervention for asymptomatic right RCA recommended vitamin patient 06/12/2023 Patient is seen and evaluated in room at bedside; no specific complaints reported Vital signs stable with temperature of 97.7, pulse 59, respiration 15 and blood pressure 169/83 White count 8.9, hemoglobin 13, platelets 240, sodium 138, potassium 3.8, chloride 106, BUN 12, creatinine 0.75, calcium 8.3 -- Patient has been placed on clonidine 0.3 mg patch At this point the patient's overall ischemic changes do not appear to be due to her right internal carotid artery stenosis therefore no acute management however she does have severe and high-grade stenosis which would require intervention. Objective - Vital Signs Vital signs: Vital Signs Temp 97.7 F 06/12/23 09:25 Pulse 59 L 06/12/23 09:25 Resp 15 06/12/23 09:25 BP 169/83 06/12/23 09:25 Pulse Ox 98 06/12/23 09:25 FiO2 Intake & Output 06/11/23 06/12/23 06/12/23 18:59 06:59 18:59 Intake Total 180 675 Output Total 800 427 Balance 180 -125 -427 Weight 49.9 kg Intake: IV 675 Dextrose 5%-0.9% NaCl 1, 675 000 ml @ 75 mls/hr IV . [id number] [facility] Rx#:[id number] Oral 180 0 Output: Urine 800 100 Straight 800 Post Void Residual 327 Other: Voiding Method External Catheter External Catheter External Catheter # Voids 1 - Exam GENERAL: The patient is confused , no follow commands, not answering question,, not in any acute distress. Well developed, well nourished. HEENT: Pupils are round and equally reacting to light. EOMI. No scleral icterus. No conjunctival pallor. Normocephalic, atraumatic. No pharyngeal erythema. No th yromegaly. CARDIOVASCULAR: S1 and S2 present. No murmurs, rubs, or gallops. PULMONARY: Chest is clear to auscultation, no wheezing , no crackles. ABDOMEN: Soft, nontender, nondistended, normoactive bowel sounds. No palpable organomegaly. MUSCULOSKELETAL: No joint swelling or deformity. EXTREMITIES: No cyanosis, clubbing, or pedal edema. -NEUROLOGICAL: right hemiparensis with increased tone, exam is limited by the pt condition. SKIN: No rashes. no petechiae. - Labs CBC & Chem 7: 06/12/23 07:58 06/12/23 07:58 Labs: Abnormal Lab Results - Last 24 Hours (Table) 06/11/23 06/11/23 06/11/23 Range/Units 11:45 16:48 19:34 Lymphocytes # (1.0-4.8) k/uL Glucose (74-99) mg/dL POC Glucose (mg/dL) 145 H 201 H 165 H (70-110) mg/dL Calcium (8.4-10.2) mg/dL Urine Protein (Negative) Urine Glucose (UA) (Negative) Urine Mucus (None) /hpf 06/12/23 06/12/23 06/12/23 Range/Units 02:31 06:01 07:58 Lymphocytes # 0.9 L (1.0-4.8) k/uL Glucose (74-99) mg/dL POC Glucose (mg/dL) 166 H (70-110) mg/dL Calcium (8.4-10.2) mg/dL Urine Protein 1+ H (Negative) Urine Glucose (UA) 3+ H (Negative) Urine Mucus Rare H (None) /hpf 06/12/23 Range/Units 07:58 Lymphocytes # (1.0-4.8) k/uL Glucose 157 H (74-99) mg/dL POC Glucose (mg/dL) (70-110) mg/dL Calcium 8.3 L (8.4-10.2) mg/dL Urine Protein (Negative) Urine Glucose (UA) (Negative) Urine Mucus (None) /hpf Assessment and Plan Assessment: Altered mental status with possible left gaze fixation with possible right hemiparesis Rule out intracranial causes mild acute kidney injury Chronic atrial fibrillation with bradycardia on admission, Status post pacemaker. Previously patient declined to take anticoagulation non adherence to treatment sever carotid artery dis h/o retinal hemorrhage history of seizure on Keppra chronic kidney disease stage III Hypertension, permissive hypertension for 24-48 hours Hyperlipidemia History of sleep apnea Diabetes mellitus Plan: Continue with a neuro check aspirin as benefit more than risk ,i called next of kin to discuss management plan and response is pending for now Continue telemetry monitoring Neurology consult vascular surgery team on the case Cardiology consult Continue with insulin sliding scale Resume Keppra Hold metoprolol given her bradycardia WBC is mildly elevated but looks concentrated sample as hemoglobin and a platelet count are more than baseline. We'll give IV hydration and reassess Check bladder scan and send urine analysis and urine drug screen Labs and medication were reviewed.. Continue same treatment. Continue with symptomatic treatment. Resume home medication. Monitor labs and vitals. DVT and GI prophylaxis. Further recommendations as per clinical course of the patient DVT prophylaxis: heparin GI Prophylaxis: Pepcid PT/OT: deferred Prognosis is guarded
[2023-06-12 20:31] LABS: Glucose,Whole Blood 156 mg/dL (70-110)
[2023-06-12] MEDS: ATORVASTATIN 80 MG TAB PO SCH (20:47)
[2023-06-13 06:15] LABS: Glucose,Whole Blood 158 mg/dL (70-110)
[2023-06-13] MEDS: DEXTROSE 5%-0.9% NACL 1,000 ML IV SCH ×2 (06:27→13:05)
[2023-06-13] MEDS: INSULIN ASPART (NovoLOG) 100 UNIT/ML VIAL SQ SCH ×4 (06:39→20:47)
[2023-06-13] MEDS: FAMOTIDINE 20 MG/2 ML VIAL IV SCH (08:49)
[2023-06-13] MEDS: HEPARIN SODIUM,PORCINE 5,000 UNIT/ML 1 ML VIAL SQ SCH ×2 (08:49→20:47)
[2023-06-13] MEDS: levETIRAcetam IV 500 MG/5 ML VIAL IVP SCH ×2 (08:49→20:46)
[2023-06-13] MEDS: LEVOTHYROXINE IVP 100 MCG/5 ML VIAL IV SCH (08:50)
[2023-06-13] MEDS: ASPIRIN 300 MG SUPP RECTAL SCH (08:50)
[2023-06-13 08:56] LABS: Basophils % (A) 0 %; Eosinophils # (A) 0.2 k/uL (0-0.7); Eosinophils % (A) 2 %; HGB 12.3 gm/dL (11.4-16.0); Lymphocytes # (A) 0.8 k/uL (1.0-4.8); Lymphocytes % (A) 10 %; MCHC 30.7 g/dL (31.0-37.0); MCV 84.6 fL (80.0-100.0); Monocytes # (A) 0.7 k/uL (0-1.0); Monocytes % (A) 8 %; Neutrophils # (A) 6.8 k/uL (1.3-7.7); Neutrophils % (A) 79 %; Platelet Count 225 k/uL (150-450); RBC 4.73 m/uL (3.80-5.40); WBC 8.6 k/uL (3.8-10.6)
[2023-06-13 09:04] LABS: African American GFR (CKD) 85 (>60 ml/min/1.73 sqM); Anion Gap 7 mmol/L; Blood Urea Nitrogen 12 mg/dL (7-17); Calcium 8.3 mg/dL (8.4-10.2); Carbon Dioxide 25 mmol/L (22-30); Chloride 107 mmol/L (98-107); Glucose 149 mg/dL (74-99); Non-African American GFR(CKD) 74 (>60 ml/min/1.73 sqM); Potassium 4.1 mmol/L (3.5-5.1); Sodium 139 mmol/L (137-145)
--- NOTE | 2023-06-13 11:29 | P.PN ---
Subjective HISTORY OF PRESENT ILLNESS: This is a 77-year-old female with a past medical history significant for hypertension, diabetes, sick sinus syndrome with previous pacemaker implantation, and persistent atrial fibrillation. Patient follows in the office with Dr. Nassar. We have been asked to see the patient in consultation for atrial fibrillation. Patient examined at the bedside. Documentation reveals that patient has been bradycardic. Upon reviewing telemetry, patient is in atrial fibrillation with controlled ventricular rate. Patient is having some PVCs which makes her heart rate appears slower than it really is. Patient presented to the hospital with altered mental status. CAT scan of the brain was concerning for acute ischemic change in the right cerebellum. Patient is followed by neurology and vascular surgery. Patient is unable to provide any information. Patient has not been on anticoagulation for atrial fibrillation in the past due to retinal hemorrhage. * EKG reveals atrial fibrillation with paced beats. T-wave inversions in inferior leads; seen on previous EKG in May 2022 * Chest xray negative for acute process * Laboratory data: WBC 13.3. Hemoglobin 12.6. Platelet count 274. Sodium 138. Potassium 4.6. BUN 42. Creatinine 1.34. Troponin negative 1. TSH 1.74. * Current home cardiac medications include losartan 50 mg daily, Toprol-XL 50 mg twice daily, levothyroxine 88 g daily.. * Most recent echocardiogram obtained in December 2021 revealed ejection fraction 45-50% mild MR, mild TR, mild pulmonary hypertension * Cardiac catheterization history: Unknown 06/13/2023 Patient examined this morning at the bedside. Patient is lethargic and unable to perform thorough evaluation. She appears to be resting in bed comfortable today. Telemetry reveals atrial flutter ablation with controlled ventricular rate. Blood pressure is elevated with a systolic in the 140-150s. She is currently receiving a clonidine patch as she is unable to take oral medications. Echocardiogram completed revealing ejection fraction 35-40% with mild to moderate MR, mild aortic insufficiency. PHYSICAL EXAM: VITAL SIGNS: Reviewed. GENERAL: Well-developed in no acute distress. NECK: Supple. No JVD or thyromegaly LUNGS: Respirations even and unlabored. Lungs essentially clear to auscultation bilaterally. HEART: Regular rate and rhythm. S1 and S2 heard. EXTREMITIES: Normal range of motion. No clubbing or cyanosis. Peripheral pulses intact. No lower extremity edema ASSESSMENT: Metabolic encephalopathy Acute CVA Persistent atrial fibrillation; not on oral anticoagulation secondary to history of retinal hemorrhage History of permanent pacemaker implantation, 2021 secondary to sick sinus syndrome History of retinal hemorrhage Hypertension Diabetes Obstructive sleep apnea History of nonsustained ventricular tachycardia Carotid stenosis, occluded left ICA and high-grade right ICA stenosis PLAN: Continue to monitor blood pressure Continue clonidine patch as patient is unable to take oral medications at this time Continue telemetry monitoring Further recommendations pending patient's course Nurse practitioner note has been reviewed by physician. Signing provider agrees with the documented findings, assessment, and plan of care. Objective - Vital Signs Vital signs: Vital Signs Temp 97.8 F 06/13/23 08:45 Pulse 53 L 06/13/23 08:45 Resp 17 06/13/23 08:45 BP 148/68 06/13/23 08:45 Pulse Ox 97 06/13/23 08:45 FiO2 Intake & Output 06/12/23 06/13/23 06/13/23 18:59 06:59 18:59 Intake Total 0 0 Output Total 827 150 Balance -827 -150 0 Intake: Oral 0 0 Output: Urine 500 150 Post Void Residual 327 Other: Voiding Method External Catheter Indwelling Catheter Indwelling Catheter - Labs CBC & Chem 7: 06/13/23 08:10 06/13/23 08:10 Labs: Abnormal Lab Results - Last 24 Hours (Table) 06/12/23 06/12/23 06/12/23 Range/Units 11:25 16:24 20:29 MCHC (31.0-37.0) g/dL Lymphocytes # (1.0-4.8) k/uL Glucose (74-99) mg/dL POC Glucose (mg/dL) 159 H 189 H 156 H (70-110) mg/dL Calcium (8.4-10.2) mg/dL 06/13/23 06/13/23 06/13/23 Range/Units 06:13 08:10 08:10 MCHC 30.7 L (31.0-37.0) g/dL Lymphocytes # 0.8 L (1.0-4.8) k/uL Glucose 149 H (74-99) mg/dL POC Glucose (mg/dL) 158 H (70-110) mg/dL Calcium 8.3 L (8.4-10.2) mg/dL
[2023-06-13 11:48] LABS: Glucose,Whole Blood 169 mg/dL (70-110)
--- NOTE | 2023-06-13 12:42 | P.PN ---
Subjective Progress Note Date: 06/13/23 Patient was initially seen by Dr. Jamaal Mitchell. Please refer to his note for details. Patient is a 77-year-old female with right-sided weakness and aphasia. Patient cannot have MRI because of presence of pacemaker. Patient has history of atrial fibrillation, and not on anticoagulation since history of retinal bleed. Patient is currently on aspirin. Patient has asymptomatic right ICA stenosis. Some of the workup during his hospital visit consisted of: Ammonia level is less than 9 B12 is more than 1800 Folate is 9.30 TSH is 1.740 Lipid panel triglycerides 87, cholesterol is 164, LDLs 107 and HDL is 39 Hemoglobin A1c 6.[address] of the head is reported as degenerative and remote ischemic change with the definite of acute hemorrhage or mass effect. On my review, there is probable subacute left hypodensity in the genu of internal capsule. EKG is reported as atrial fibrillation with slow ventricular response. ST and deviation and moderate ST wave abnormality. Consider inferior ischemia. Repeat CT head is reported as correlate for acute ischemic change right cerebellum. Otherwise age-related atrophic and chronic small vessel ischemic changes. I personally reviewed that CT and I do see that there is hypo-density over the cerebellum, however the hypodensity in the left genu of internal capsule is slightly more prominent. Probable subacute ischemic infarct. Carotid duplex was reported as there is marked velocity increase within the right internal carotid artery. A critical stenosis is likely present. Loss of the within the left internal carotid is low. However ventricle flow within critical stenosis can have diminished velocities. Routine EEG is abnormal. The background slowing suggestive of moderate encephalopathy. Otherwise there is no focal slowing, epileptiform discharges or seizure on the EEG. During this recording the heart rate was in the 20s to 40s per the telecommunications switch technician and recommend cardiology consultation. 2D echo is reported as left ventricular is an upper limits of normal with mild global decrease in contractility estimated ejection fraction of 40%. Mild pulmonary hypertension. Mitral annular calcification with mild to moderate ultra regurgitation. Mild aortic insufficiency. No pericardial effusion. Repeat CT head: It is reported as age-related atrophic and chronic small vessel ischemic changes without acute intracranial process seen at this time. I personally reviewed the CT and I feel the patient has more obvious left Genu internal capsule ischemic stroke that was not seen that obvious on initial CT of the head on 06/07/2023 also feel like patient has had some hypodensity over the left puente radiata. CT angiography of the head and neck was reported as limited CT angiography of the intracranial vasculature given the osseous contamination. Prior visualization of all brach vessel although JACKSON, MCA and BIOSTATISTICS TEACHER appear patent. Objective - Vital Signs Vital signs: Vital Signs Temp 97.8 F 06/13/23 08:45 Pulse 53 L 06/13/23 08:45 Resp 17 06/13/23 08:45 BP 148/68 06/13/23 08:45 Pulse Ox 97 06/13/23 08:45 FiO2 Intake & Output 06/12/23 06/13/23 06/13/23 18:59 06:59 18:59 Intake Total 0 Output Total 827 150 Balance -827 -150 Intake: Oral 0 Output: Urine 500 150 Post Void Residual 327 Other: Voiding Method External Catheter Indwelling Catheter Indwelling Catheter - Exam On examination patient is laying in the bed. She is somewhat obtunded. Patient does not follow directions. She does not speak any words. She does moan with painful stimuli. On cranial nerve examination pupils are equal, round and reactive to light. Visual medeiros could not be performed. She has right facial weakness. Rest of the cranial nerves could not be tested. On muscle strength testing, patient has flaccid right upper extremity. She does hold her left arm up in the air for couple seconds and then brings it down rapidly. There is definite focality with upper extremity testing. Patient moans with painful stimuli in the lower limbs, and withdraws left leg slightly better than the right. Plantars are probably upgoing. - Labs CBC & Chem 7: 06/13/23 08:10 06/13/23 08:10 Labs: Abnormal Lab Results - Last 24 Hours (Table) 06/12/23 06/12/23 06/12/23 Range/Units 11:25 16:24 20:29 MCHC (31.0-37.0) g/dL Lymphocytes # (1.0-4.8) k/uL Glucose (74-99) mg/dL POC Glucose (mg/dL) 159 H 189 H 156 H (70-110) mg/dL Calcium (8.4-10.2) mg/dL 06/13/23 06/13/23 06/13/23 Range/Units 06:13 08:10 08:10 MCHC 30.7 L (31.0-37.0) g/dL Lymphocytes # 0.8 L (1.0-4.8) k/uL Glucose 149 H (74-99) mg/dL POC Glucose (mg/dL) 158 H (70-110) mg/dL Calcium 8.3 L (8.4-10.2) mg/dL Assessment and Plan Assessment: This is a 77-year-old woman who presented because of altered mental status appeared unknown last normal state. Probable subacute ischemic stroke manifesting with aphasia and right hemiparesis. Per Dr. Mitchell's note, patient's cousin and his mentioned that the patient usually walks with a cane or walker and unknown if she has one deficit over the other and the cousin does not feel like she has history of seizures but patient is on Keppra at home. Right-sided significant hemiparesis including face, aphasia and some confusion due to acute ischemic stroke especially with a history of atrial fibrillation and she is not on any anticoagulation or antiplatelet prior to this. I felt she has subacute stroke involving the genu left internal capusle stroke that is more appreciable compared initial CT. No IV TPA since unknown last normal and the risk outweigh the benefit. History of Atrial fibrillation and is not on any anticoagulation or antiplatelets prior. Seems that the patient was not on any anticoagulation secondary to history of retinal hemorrhage. History of pacemaker placement in 2021 secondary due to sick sinus syndrome Likely critical stenosis is likely present over the right ICA per carotid duplex. This seems asymptomatic since would not explain her acute neurological deficit Episodes of bradycardia during this visit Escalated hypertension History of stroke Diabetes mellitus History of hypertension History of retinal hemorrhage History of sleep apnea on CPAP Plan: Cannot obtain MRI since has pacemaker. Vascular surgery input appreciated. They do not believe right ICA stenosis is symptomatic at this time. They feel that patient does have severe in high-grade stenosis on the right side, which would require intervention in the future. Patient would need long discussion with appropriate family members/POA to evaluate for fitness and planning for surgery. This can be done as an outpatient. Patient was started on aspirin 300 mg suppository by the primary team. Dr. Mitchell also started the patient on Lipitor 80 mg daily at bedtime for secondary s troke prophylaxis and she'll receive it once she is able to swallow or gets an NG or PEG tube. Continue neuro checks. Cardiac monitoring Cardiology is consulted by the primary team because of the patient's atrial fibrillation Defer the rest of the medical management to primary team For DVT prophylaxis as are the patient on subcu heparin 5000 units every 12 hours Consider palliative care consultation because of her overall condition. Discussed with primary team
--- NOTE | 2023-06-13 13:30 | P.PN ---
Subjective Progress Note Date: 06/13/23 77 years old female with past medical history of Atrial Fibrillation, Diabetes Mellitus, Hyperlipidemia, Hypertension, Sleep Apnea/CPAP/BIPAP Patient is seen in the emergency room, she was lying in bed awake and looking mainly to the left side When asking the patient any question she answers with her for number for example and ask her about her name, orientation questions or her symptoms are because of presentation she just answered by given her no phone number. She does not follow commands appropriately and it looks that she has increased on on the right side with some flexion deformity. No further information could be obtained from the patient. No family at bedside. Temperature 97.5, heart rate 50, blood pressure is within the reference range She had mild leukocytosis of 13.3. Rest of CBC is unremarkable. INR is 1.1. Creatinine is elevated at 1.34 which is close to baseline of 1.0-1.2 Liver enzymes not elevated. Ammonia less than 9. Troponin negative. Serum alcohol less than 10. Viruses undetected including influenza and RSV CT of the brain: Degenerative and remote ischemic changes with no definitive acute process Patient is started on normal saline in the emergency room and the neurologist consulted 06/11/2023 Patient is seen and evaluated in room at bedside; patient is more awake and responsive Vital signs are reviewed and remained stable -- Patient has been evaluated by BITUMEN PLANT OPERATOR and is placed on a. Diet - Neurology on board and recommending to continue with aspirin and statin therapy; MRI is recommended but cannot be completed because of pacemaker - Patient has been evaluated by vascular surgery and no intervention for asymptomatic right RCA recommended vitamin patient 06/12/2023 Patient is seen and evaluated in room at bedside; no specific complaints reported Vital signs stable with temperature of 97.7, pulse 59, respiration 15 and blood pressure 169/83 White count 8.9, hemoglobin 13, platelets 240, sodium 138, potassium 3.8, chloride 106, BUN 12, creatinine 0.75, calcium 8.3 -- Patient has been placed on clonidine 0.3 mg patch At this point the patient's overall ischemic changes do not appear to be due to her right internal carotid artery stenosis therefore no acute management however she does have severe and high-grade stenosis which would require intervention. 06/13. Patient seen and examined. WBC 8.6, hemoglobin 12.3, platelet count 225, sodium 139, potassium 4.1, BUN 12, creatinine 0.78 REVIEW OF SYSTEMS: Not be obtained as patient is lethargic and confused PHYSICAL EXAMINATION: GENERAL: The patient is lethargic, HEENT: Pupils are round and equally reacting to light. EOMI. No scleral icterus. No conjunctival pallor. Normocephalic, atraumatic. No pharyngeal erythema. No thyromegaly. CARDIOVASCULAR: S1 and S2 present. No murmurs, rubs, or gallops. PULMONARY: Chest is clear to auscultation, no wheezing or crackles. ABDOMEN: Soft, nontender, nondistended, normoactive bowel sounds. No palpable organomegaly. MUSCULOSKELETAL: No joint swelling or deformity. EXTREMITIES: No cyanosis, clubbing, or pedal edema. NEUROLOGICAL: Moves lower extremities to painful stimuli, right upper extremity flaccid does not follow commands SKIN: No rashes. Assessment and plan Acute metabolic encephalopathy acute kidney injury Asymptomatic right ICA stenosis CVA Chronic atrial fibrillation with bradycardia on admission, Status post pacemaker non adherence to treatment h/o retinal hemorrhage history of seizure on Keppra chronic kidney disease stage III Hypertension, permissive hypertension for 24-48 hours Hyperlipidemia History of sleep apnea Diabetes mellitus Plan: Monitor vital signs Monitor CBC Monitor CMP Continue with a neuro check Continue aspirin, Lipitor Continue with insulin sliding scale Continue Keppra Hold metoprolol given her bradycardia Vascular surgery was consulted for the carotid stenosis, they recommend outpatient follow-up, no intervention for asymptomatic right ICA. Neurology following Cardiology following Labs and medication were reviewed.. Continue same treatment. Continue with symptomatic treatment. Resume home medication. Monitor labs and vitals. DVT and GI prophylaxis. Further recommendations as per clinical course of the patient Dictation was produced using [employer] dictation software. please excuse any grammatical, word or spelling errors. Objective - Vital Signs Vital signs: Vital Signs Temp 97.7 F 06/12/23 09:25 Pulse 55 L 06/13/23 04:00 Resp 18 06/13/23 04:00 BP 157/77 06/13/23 04:00 Pulse Ox 99 06/13/23 04:00 FiO2 Intake & Output 06/12/23 06/13/23 06/13/23 18:59 06:59 18:59 Intake Total 0 Output Total 827 150 Balance -827 -150 Intake: Oral 0 Output: Urine 500 150 Post Void Residual 327 Other: Voiding Method External Catheter Indwelling Catheter - Labs CBC & Chem 7: 06/13/23 08:10 06/13/23 08:10 Labs: Abnormal Lab Results - Last 24 Hours (Table) 06/12/23 06/12/23 06/12/23 Range/Units 07:58 11:25 16:24 MCHC (31.0-37.0) g/dL Lymphocytes # (1.0-4.8) k/uL Glucose 157 H (74-99) mg/dL POC Glucose (mg/dL) 159 H 189 H (70-110) mg/dL Calcium 8.3 L (8.4-10.2) mg/dL 06/12/23 06/13/23 06/13/23 Range/Units 20:29 06:13 08:10 MCHC 30.7 L (31.0-37.0) g/dL Lymphocytes # 0.8 L (1.0-4.8) k/uL Glucose (74-99) mg/dL POC Glucose (mg/dL) 156 H 158 H (70-110) mg/dL Calcium (8.4-10.2) mg/dL 06/13/23 Range/Units 08:10 MCHC (31.0-37.0) g/dL Lymphocytes # (1.0-4.8) k/uL Glucose 149 H (74-99) mg/dL POC Glucose (mg/dL) (70-110) mg/dL Calcium 8.3 L (8.4-10.2) mg/dL
[2023-06-13 16:43] LABS: Glucose,Whole Blood 158 mg/dL (70-110)
[2023-06-13 20:01] LABS: Glucose,Whole Blood 162 mg/dL (70-110)
[2023-06-13] MEDS: ATORVASTATIN 80 MG TAB PO SCH (20:37)
[2023-06-14] MEDS: hydrALAZINE HCL 20 MG/ML 1 ML VIAL IVP PRN ×2 (05:18→21:59)
[2023-06-14 06:06] LABS: Glucose,Whole Blood 169 mg/dL (70-110)
[2023-06-14] MEDS: INSULIN ASPART (NovoLOG) 100 UNIT/ML VIAL SQ SCH ×4 (06:25→22:00)
[2023-06-14] MEDS: levETIRAcetam IV 500 MG/5 ML VIAL IVP SCH ×2 (08:52→21:59)
[2023-06-14] MEDS: FAMOTIDINE 20 MG/2 ML VIAL IV SCH (08:53)
[2023-06-14] MEDS: HEPARIN SODIUM,PORCINE 5,000 UNIT/ML 1 ML VIAL SQ SCH ×2 (08:53→22:00)
[2023-06-14] MEDS: LEVOTHYROXINE IVP 100 MCG/5 ML VIAL IV SCH (08:53)
[2023-06-14] MEDS: ASPIRIN 300 MG SUPP RECTAL SCH (08:54)
[2023-06-14 11:16] LABS: Glucose,Whole Blood 182 mg/dL (70-110)
[2023-06-14] MEDS: hydrALAZINE HCL 20 MG/ML 1 ML VIAL IVP SCH ×3 (11:43→23:21)
--- NOTE | 2023-06-14 12:42 | P.PN ---
Subjective HISTORY OF PRESENT ILLNESS: This is a 77-year-old female with a past medical history significant for hypertension, diabetes, sick sinus syndrome with previous pacemaker implantation, and persistent atrial fibrillation. Patient follows in the office with Dr. Nassar. We have been asked to see the patient in consultation for atrial fibrillation. Patient examined at the bedside. Documentation reveals that patient has been bradycardic. Upon reviewing telemetry, patient is in atrial fibrillation with controlled ventricular rate. Patient is having some PVCs which makes her heart rate appears slower than it really is. Patient presented to the hospital with altered mental status. CAT scan of the brain was concerning for acute ischemic change in the right cerebellum. Patient is followed by neurology and vascular surgery. Patient is unable to provide any information. Patient has not been on anticoagulation for atrial fibrillation in the past due to retinal hemorrhage. * EKG reveals atrial fibrillation with paced beats. T-wave inversions in inferior leads; seen on previous EKG in May 2022 * Chest xray negative for acute process * Laboratory data: WBC 13.3. Hemoglobin 12.6. Platelet count 274. Sodium 138. Potassium 4.6. BUN 42. Creatinine 1.34. Troponin negative 1. TSH 1.74. * Current home cardiac medications include losartan 50 mg daily, Toprol-XL 50 mg twice daily, levothyroxine 88 g daily.. * Most recent echocardiogram obtained in December 2021 revealed ejection fraction 45-50% mild MR, mild TR, mild pulmonary hypertension * Cardiac catheterization history: Unknown 06/13/2023 Patient examined this morning at the bedside. Patient is lethargic and unable to perform thorough evaluation. She appears to be resting in bed comfortable today. Telemetry reveals atrial flutter ablation with controlled ventricular rate. Blood pressure is elevated with a systolic in the 140-150s. She is currently receiving a clonidine patch as she is unable to take oral medications. Echocardiogram completed revealing ejection fraction 35-40% with mild to moderate MR, mild aortic insufficiency. 06/14/2023 Patient examined this morning at the bedside. Patient remains essentially obt unded. She is unable to take oral medications. Blood pressure remains elevated with a systolic in the 180s. She is currently receiving a Catapres patch of 0.3 mg. PHYSICAL EXAM: VITAL SIGNS: Reviewed. GENERAL: Well-developed in no acute distress. NECK: Supple. No JVD or thyromegaly LUNGS: Respirations even and unlabored. Lungs essentially clear to auscultation bilaterally. HEART: Regular rate and rhythm. S1 and S2 heard. EXTREMITIES: Normal range of motion. No clubbing or cyanosis. Peripheral pulses intact. No lower extremity edema ASSESSMENT: Metabolic encephalopathy Acute CVA Persistent atrial fibrillation; not on oral anticoagulation secondary to history of retinal hemorrhage History of permanent pacemaker implantation, 2021 secondary to sick sinus syndrome History of retinal hemorrhage Hypertension Diabetes Obstructive sleep apnea History of nonsustained ventricular tachycardia Carotid stenosis, occluded left ICA and high-grade right ICA stenosis PLAN: Continue to monitor blood pressure Continue clonidine patch as patient is unable to take oral medications at this time Add hydralazine 20 mg IV push every 6 hours scheduled for optimal blood pressure control. Hold for systolic blood pressure less than 160. Continue telemetry monitoring Further recommendations pending patient's course Nurse practitioner note has been reviewed by physician. Signing provider agrees with the documented findings, assessment, and plan of care. Objective - Vital Signs Vital signs: Vital Signs Temp 97.4 F L 06/14/23 11:20 Pulse 53 L 06/14/23 11:20 Resp 18 06/14/23 11:20 BP 131/71 06/14/23 11:20 Pulse Ox 98 06/14/23 11:20 FiO2 Intake & Output 06/13/23 06/14/23 06/14/23 18:59 06:59 18:59 Intake Total 0 0 Output Total 50 575 Balance -50 -575 0 Intake: Oral 0 0 Output: Urine 50 575 Other: Voiding Method Indwelling Catheter Indwelling Catheter Indwelling Catheter - Labs CBC & Chem 7: 06/13/23 08:10 06/13/23 08:10 Labs: Abnormal Lab Results - Last 24 Hours (Table) 06/13/23 06/13/23 06/14/23 Range/Units 16:42 20:00 06:04 POC Glucose (mg/dL) 158 H 162 H 169 H (70-110) mg/dL 06/14/23 Range/Units 11:14 POC Glucose (mg/dL) 182 H (70-110) mg/dL
--- NOTE | 2023-06-14 13:26 | P.PN ---
Subjective Progress Note Date: 06/14/23 77 years old female with past medical history of Atrial Fibrillation, Diabetes Mellitus, Hyperlipidemia, Hypertension, Sleep Apnea/CPAP/BIPAP Patient is seen in the emergency room, she was lying in bed awake and looking mainly to the left side When asking the patient any question she answers with her for number for example and ask her about her name, orientation questions or her symptoms are because of presentation she just answered by given her no phone number. She does not follow commands appropriately and it looks that she has increased on on the right side with some flexion deformity. No further information could be obtained from the patient. No family at bedside. Temperature 97.5, heart rate 50, blood pressure is within the reference range She had mild leukocytosis of 13.3. Rest of CBC is unremarkable. INR is 1.1. Creatinine is elevated at 1.34 which is close to baseline of 1.0-1.2 Liver enzymes not elevated. Ammonia less than 9. Troponin negative. Serum alcohol less than 10. Viruses undetected including influenza and RSV CT of the brain: Degenerative and remote ischemic changes with no definitive acute process Patient is started on normal saline in the emergency room and the neurologist consulted 06/11/2023 Patient is seen and evaluated in room at bedside; patient is more awake and responsive Vital signs are reviewed and remained stable -- Patient has been evaluated by RAILWAY SIGNALLING ENGINEER and is placed on a. Diet - Neurology on board and recommending to continue with aspirin and statin therapy; MRI is recommended but cannot be completed because of pacemaker - Patient has been evaluated by vascular surgery and no intervention for asymptomatic right RCA recommended vitamin patient 06/12/2023 Patient is seen and evaluated in room at bedside; no specific complaints reported Vital signs stable with temperature of 97.7, pulse 59, respiration 15 and blood pressure 169/83 White count 8.9, hemoglobin 13, platelets 240, sodium 138, potassium 3.8, chloride 106, BUN 12, creatinine 0.75, calcium 8.3 -- Patient has been placed on clonidine 0.3 mg patch At this point the patient's overall ischemic changes do not appear to be due to her right internal carotid artery stenosis therefore no acute management however she does have severe and high-grade stenosis which would require intervention. 06/13. Patient seen and examined. WBC 8.6, hemoglobin 12.3, platelet count 225, sodium 139, potassium 4.1, BUN 12, creatinine 0.78 06/14. Patient seen and examined. Patient continues to be confused, not resp onsive. Family that includes some cousins and friends are trying to apply for guardianship. Discussed with dietitian, will start patient on alternative form of nutrition the form of tube feeds via [employer] REVIEW OF SYSTEMS: Not be obtained as patient is lethargic and confused PHYSICAL EXAMINATION: GENERAL: The patient is lethargic, HEENT: Pupils are round and equally reacting to light. EOMI. No scleral icterus. No conjunctival pallor. Normocephalic, atraumatic. No pharyngeal erythema. No thyromegaly. CARDIOVASCULAR: S1 and S2 present. No murmurs, rubs, or gallops. PULMONARY: Chest is clear to auscultation, no wheezing or crackles. ABDOMEN: Soft, nontender, nondistended, normoactive bowel sounds. No palpable organomegaly. MUSCULOSKELETAL: No joint swelling or deformity. EXTREMITIES: No cyanosis, clubbing, or pedal edema. NEUROLOGICAL: Moves lower extremities to painful stimuli, right upper extremity flaccid does not follow commands SKIN: No rashes. Assessment and plan Acute metabolic encephalopathy acute kidney injury Asymptomatic right ICA stenosis CVA Chronic atrial fibrillation with bradycardia on admission, Status post pacemaker non adherence to treatment h/o retinal hemorrhage history of seizure on Keppra chronic kidney disease stage III Hypertension, permissive hypertension for 24-48 hours Hyperlipidemia History of sleep apnea Diabetes mellitus Plan: Monitor vital signs Monitor CBC Monitor CMP Continue with a neuro check Continue aspirin, Lipitor Continue with insulin sliding scale Continue Keppra Hold metoprolol given her bradycardia Currently on clonidine patch for blood pressure control Vascular surgery was consulted for the carotid stenosis, they recommend outpatient follow-up, no intervention for asymptomatic right ICA. Social work consulted, working on getting guardianship Discussed with dietitian, start patient on tube feeds via [employer] Neurology following Cardiology following Labs and medication were reviewed.. Continue same treatment. Continue with symptomatic treatment. Resume home medication. Monitor labs and vitals. DVT and GI prophylaxis. Further recommendations as per clinical course of the patient Dictation was produced using [employer] software. please excuse any grammatical, word or spelling errors. Objective - Vital Signs Vital signs: Vital Signs Temp 97.4 F L 06/14/23 11:20 Pulse 53 L 06/14/23 11:20 Resp 18 06/14/23 11:20 BP 131/71 06/14/23 11:20 Pulse Ox 98 06/14/23 11:20 FiO2 Intake & Output 06/13/23 06/14/23 06/14/23 18:59 06:59 18:59 Intake Total 0 0 Output Total 50 575 Balance -50 -575 0 Intake: Oral 0 0 Output: Urine 50 575 Other: Voiding Method Indwelling Catheter Indwelling Catheter Indwelling Catheter - Labs CBC & Chem 7: 06/13/23 08:10 06/13/23 08:10 Labs: Abnormal Lab Results - Last 24 Hours (Table) 06/13/23 06/13/23 06/14/23 Range/Units 16:42 20:00 06:04 POC Glucose (mg/dL) 158 H 162 H 169 H (70-110) mg/dL 06/14/23 Range/Units 11:14 POC Glucose (mg/dL) 182 H (70-110) mg/dL
[2023-06-14 14:55] VITALS: BMI 19.5
[2023-06-14 16:32] LABS: Glucose,Whole Blood 152 mg/dL (70-110)
--- NOTE | 2023-06-14 17:18 | P.PN ---
Subjective Progress Note Date: 06/14/23 06/14/2023: Patient was seen for a follow-up. Patient is laying comfortably in the bed. Offers no new complaints. Patient denies headache. She is much more alert and awake. She appears to have expressive aphasia. 06/13/2023:Patient was initially seen by Dr. Jamaal Mitchell. Please refer to his note for details. Patient is a 77-year-old female with right-sided weakness and aphasia. Patient cannot have MRI because of presence of pacemaker. Patient has history of atrial fibrillation, and not on anticoagulation since history of retinal bleed. Patient is currently on aspirin. Patient has asymptomatic right ICA stenosis. Some of the workup during his hospital visit consisted of: Ammonia level is less than 9 B12 is more than 1800 Folate is 9.30 TSH is 1.740 Lipid panel triglycerides 87, cholesterol is 164, LDLs 107 and HDL is 39 Hemoglobin A1c 6.[address] of the head is reported as degenerative and remote ischemic change with the definite of acute hemorrhage or mass effect. On my review, there is probable subacute left hypodensity in the genu of internal capsule. EKG is reported as atrial fibrillation with slow ventricular response. ST and deviation and moderate ST wave abnormality. Consider inferior ischemia. Repeat CT head is reported as correlate for acute ischemic change right cerebellum. Otherwise age-related atrophic and chronic small vessel ischemic changes. I personally reviewed that CT and I do see that there is hypo-density over the cerebellum, however the hypodensity in the left genu of internal capsule is slightly more prominent. Probable subacute ischemic infarct. Carotid duplex was reported as there is marked velocity increase within the right internal carotid artery. A critical stenosis is likely present. Loss of the within the left internal carotid is low. However ventricle flow within critical stenosis can have diminished velocities. Routine EEG is abnormal. The background slowing suggestive of moderate encephalopathy. Otherwise there is no focal slowing, epileptiform discharges or seizure on the EEG. During this recording the heart rate was in the 20s to 40s per the mri ct tech and recommend cardiology consultation. 2D echo is reported as left ventricular is an upper limits of normal with mild global decrease in contractility estimated ejection fraction of 40%. Mild pulmonary hypertension. Mitral annular calcification with mild to moderate ultra regurgitation. Mild aortic insufficiency. No pericardial effusion. Repeat CT head: It is reported as age-related atrophic and chronic small vessel ischemic changes without acute intracranial process seen at this time. I personally reviewed the CT and I feel the patient has more obvious left Genu internal capsule ischemic stroke that was not seen that obvious on initial CT of the head on 06/07/2023 also feel like patient has had some hypodensity over the left puente radiata. CT angiography of the head and neck was reported as limited CT angiography of the intracranial vasculature given the osseous contamination. Prior v isualization of all brach vessel although JACKSON, MCA and HOMOGENIZER OPERATOR appear patent. Objective - Vital Signs Vital signs: Vital Signs Temp 97.5 F L 06/14/23 15:22 Pulse 50 L 06/14/23 15:22 Resp 17 06/14/23 15:22 BP 143/56 06/14/23 16:54 Pulse Ox 100 06/14/23 15:22 FiO2 Intake & Output 06/13/23 06/14/23 06/14/23 18:59 06:59 18:59 Intake Total 0 0 Output Total 50 575 Balance -50 -575 0 Weight 49.9 kg Intake: Oral 0 0 Output: Urine 50 575 Other: Voiding Method Indwelling Catheter Indwelling Catheter Indwelling Catheter - Exam On examination patient is laying in the bed. She is very much alert and awake. She has significant expressive aphasia. She said "no" for headache. Patient not able to name any object. Patient cannot repeat. On cranial nerve examination pupils are equal, round and reactive to light. Visual medeiros could not be performed. She has right facial weakness. Rest of the cranial nerves could not be tested. On muscle strength testing, patient is flaccid in the right upper and right lower extremity. Her strength is normal in the left upper limb distally and proximally. Patient able to lift her leg leg off the bed and hold it in the air and give some resistance. Plantars are probably upgoing. - Labs CBC & Chem 7: 06/13/23 08:10 06/13/23 08:10 Labs: Abnormal Lab Results - Last 24 Hours (Table) 06/13/23 06/14/23 06/14/23 Range/Units 20:00 06:04 11:14 POC Glucose (mg/dL) 162 H 169 H 182 H (70-110) mg/dL 06/14/23 Range/Units 16:20 POC Glucose (mg/dL) 152 H (70-110) mg/dL Assessment and Plan Assessment: This is a 77-year-old woman who presented because of altered mental status appeared unknown last normal state. Probable subacute ischemic stroke manifesting with aphasia and right hemiparesis. Per Dr. Mitchell's note, patient's cousin and his mentioned that the patient usually walks with a cane or walker and unknown if she has one deficit over the other and the cousin does not feel like she has history of seizures but patient is on Keppra at home. Right-sided significant hemiparesis including face, aphasia and some confusion due to acute ischemic stroke especially with a history of atrial fibrillation and she is not on any anticoagulation or antiplatelet prior to this. I felt she has subacute stroke involving the genu left internal capusle stroke that is more appreciable compared initial CT. No IV TPA since unknown last normal and the risk outweigh the benefit. History of Atrial fibrillation and is not on any anticoagulation or antiplatelets prior. Seems that the patient was not on any anticoagulation secondary to history of retinal hemorrhage. History of pacemaker placement in 2021 secondary due to sick sinus syndrome Likely critical stenosis is likely present over the right ICA per carotid duplex. This seems asymptomatic since would not explain her acute neurological deficit Episodes of bradycardia during this visit Escalated hypertension History of stroke Diabetes mellitus History of hypertension History of retinal hemorrhage History of sleep apnea on CPAP Plan: Cannot obtain MRI since has pacemaker. Repeat CT head to evaluate for evolving stroke. Vascular surgery input appreciated. They do not believe right ICA stenosis is symptomatic at this time. They feel that patient does have severe in high-grade stenosis on the right side, which would require intervention in the future. Patient would need long discussion with appropriate family members/POA to evaluate for fitness and planning for surgery. This can be done as an outpatient. Patient was started on aspirin 300 mg suppository by the primary team. Dr. Shan isabel also started the patient on Lipitor 80 mg daily at bedtime for secondary stroke prophylaxis and she'll receive it once she is able to swallow or gets an NG or PEG tube. Continue neuro checks. Cardiac monitoring Cardiology is consulted by the primary team because of the patient's atrial fibrillation Defer the rest of the medical management to primary team For DVT prophylaxis as are the patient on subcu heparin 5000 units every 12 hours Consider palliative care consultation because of her overall condition. Discussed with primary team
[2023-06-14] MEDS: DEXTROSE 5%-0.9% NACL 1,000 ML IV SCH ×2 (17:51→23:21)
[2023-06-14 20:17] LABS: Glucose,Whole Blood 162 mg/dL (70-110)
[2023-06-14] MEDS: ATORVASTATIN 80 MG TAB PO SCH (21:49)
[2023-06-15] MEDS: hydrALAZINE HCL 20 MG/ML 1 ML VIAL IVP SCH ×4 (06:36→23:30)
[2023-06-15] MEDS: INSULIN ASPART (NovoLOG) 100 UNIT/ML VIAL SQ SCH ×4 (06:37→20:56)
[2023-06-15] MEDS: FAMOTIDINE 20 MG/2 ML VIAL IV SCH (09:27)
[2023-06-15] MEDS: LEVOTHYROXINE IVP 100 MCG/5 ML VIAL IV SCH (09:27)
[2023-06-15] MEDS: HEPARIN SODIUM,PORCINE 5,000 UNIT/ML 1 ML VIAL SQ SCH ×2 (09:29→20:56)
[2023-06-15] MEDS: ASPIRIN 300 MG SUPP RECTAL SCH (09:29)
[2023-06-15] MEDS: levETIRAcetam IV 500 MG/5 ML VIAL IVP SCH ×2 (09:29→20:56)
--- NOTE | 2023-06-15 10:19 | CT ---
EXAMINATION TYPE: CT brain wo con DATE OF EXAM: 06/15/2023 COMPARISON: 06/10/2023, 06/09/2023, 06/08/2023, 06/07/2023 HISTORY: ams CT DLP: 1218.4 mGycm Automated exposure control for dose reduction was used. FINDINGS: Moderate generalized degenerative change. There is low attenuation in the left basal ganglia compatib le with remote lacunar infarct. Artifact in the posterior fossa from dental work. Hypoattenuation in the white matter compatible with remote ischemic white matter change. No evidence of midline shift or mass effect. No acute hemorrhage. Punctate calcification posterior fo ssa appears stable. Craniocervical junction maintained. Sella turcica normal. Calvarium intact. Orbits are symmetric. Sin uses clear with nasal septal deviation. IMPRESSION: DEGENERATIVE AND REMOTE ISCHEMIC CHANGE. THERE IS AN AREA OF LOW ATTENUATION IN THE LEFT TEMPORAL LOB E MEASURING 1.4 CM ON AXIAL IMAGE 27. RECENT ISCHEMIA IN THE DIFFERENTIAL DIAGNOSIS. CONSIDER MRI FOL LOW-UP.
--- NOTE | 2023-06-15 10:45 | P.PN ---
Subjective HISTORY OF PRESENT ILLNESS: This is a 77-year-old female with a past medical history significant for hypertension, diabetes, sick sinus syndrome with previous pacemaker implantation, and persistent atrial fibrillation. Patient follows in the office with Dr. Nassar. We have been asked to see the patient in consultation for atrial fibrillation. Patient examined at the bedside. Documentation reveals that patient has been bradycardic. Upon reviewing telemetry, patient is in atrial fibrillation with controlled ventricular rate. Patient is having some PVCs which makes her heart rate appears slower than it really is. Patient presented to the hospital with altered mental status. CAT scan of the brain was concerning for acute ischemic change in the right cerebellum. Patient is followed by neurology and vascular surgery. Patient is unable to provide any information. Patient has not been on anticoagulation for atrial fibrillation in the past due to retinal hemorrhage. * EKG reveals atrial fibrillation with paced beats. T-wave inversions in inferior leads; seen on previous EKG in May 2022 * Chest xray negative for acute process * Laboratory data: WBC 13.3. Hemoglobin 12.6. Platelet count 274. Sodium 138. Potassium 4.6. BUN 42. Creatinine 1.34. Troponin negative 1. TSH 1.74. * Current home cardiac medications include losartan 50 mg daily, Toprol-XL 50 mg twice daily, levothyroxine 88 g daily.. * Most recent echocardiogram obtained in December 2021 revealed ejection fraction 45-50% mild MR, mild TR, mild pulmonary hypertension * Cardiac catheterization history: Unknown 06/13/2023 Patient examined this morning at the bedside. Patient is lethargic and unable to perform thorough evaluation. She appears to be resting in bed comfortable today. Telemetry reveals atrial flutter ablation with controlled ventricular rate. Blood pressure is elevated with a systolic in the 140-150s. She is currently receiving a clonidine patch as she is unable to take oral medications. Echocardiogram completed revealing ejection fraction 35-40% with mild to moderate MR, mild aortic insufficiency. 06/14/2023 Patient examined this morning at the bedside. Patient remains essentially obt unded. She is unable to take oral medications. Blood pressure remains elevated with a systolic in the 180s. She is currently receiving a Catapres patch of 0.3 mg. 06/15/2023 Patient examined this morning at the bedside. Patient remains obtunded. She is unable to take oral medications. Blood pressure has improved since yesterday. PHYSICAL EXAM: VITAL SIGNS: Reviewed. GENERAL: Well-developed in no acute distress. NECK: Supple. No JVD or thyromegaly LUNGS: Respirations even and unlabored. Lungs essentially clear to auscultation bilaterally. HEART: Regular rate and rhythm. S1 and S2 heard. EXTREMITIES: Normal range of motion. No clubbing or cyanosis. Peripheral p ulses intact. No lower extremity edema ASSESSMENT: Metabolic encephalopathy Acute CVA Persistent atrial fibrillation; not on oral anticoagulation secondary to history of retinal hemorrhage History of permanent pacemaker implantation, 2021 secondary to sick sinus syndrome History of retinal hemorrhage Hypertension Diabetes Obstructive sleep apnea History of nonsustained ventricular tachycardia Carotid stenosis, occluded left ICA and high-grade right ICA stenosis PLAN: Continue to monitor blood pressure Continue clonidine patch as patient is unable to take oral medications at this time Continue hydralazine 20 mg IV push every 6 hours scheduled for optimal blood pressure control. Hold for systolic blood pressure less than 160. Continue telemetry monitoring Recommend transitioning anti-hypertensives to oral medications when patient is able to take PO No further inpatient recommendations from a cardiology standpoint We will sign off. Please reconsult if needed. Nurse practitioner note has been reviewed by physician. Signing provider agrees with the documented findings, assessment, and plan of care. Objective - Vital Signs Vital signs: Vital Signs Temp 98.4 F 06/15/23 08:00 Pulse 60 06/15/23 08:00 Resp 17 06/15/23 08:00 BP 123/68 06/15/23 08:00 Pulse Ox 100 06/14/23 15:22 FiO2 Intake & Output 06/14/23 06/15/23 06/15/23 18:59 06:59 18:59 Intake Total 0 180 Output Total 275 Balance 0 -275 180 Weight 49.9 kg Intake: Oral 0 180 Output: Urine 275 Other: Voiding Method Indwelling Catheter Indwelling Catheter Indwelling Catheter - Labs CBC & Chem 7: 06/13/23 08:10 06/13/23 08:10 Labs: Abnormal Lab Results - Last 24 Hours (Table) 06/14/23 06/14/23 06/14/23 Range/Units 11:14 16:20 20:15 POC Glucose (mg/dL) 182 H 152 H 162 H (70-110) mg/dL
--- NOTE | 2023-06-15 11:50 | XR ---
EXAMINATION TYPE: XR chest 1V portable DATE OF EXAM: 06/15/2023 COMPARISON: 06/07/2023 HISTORY: Cough TECHNIQUE: Single frontal view of the chest is obtained. FINDINGS: Remote displaced right clavicular fracture. Diffuse osteopenia. Cardiac device noted with limited inspiration. Heart is enlarged. No overt failure or pneumothorax. No pleural effusion. Hypert rophic and degenerative change of the spine. IMPRESSION: Elevated right hemidiaphragm with no definite acute process.
[2023-06-15 16:38] LABS: Glucose,Whole Blood 163 mg/dL (70-110)
[2023-06-15] MEDS: DEXTROSE 5%-0.9% NACL 1,000 ML IV SCH ×2 (16:38→23:29)
[2023-06-15 16:39] LABS: Glucose,Whole Blood 172 mg/dL (70-110)
[2023-06-15 16:39] LABS: Glucose,Whole Blood 211 mg/dL (70-110)
[2023-06-15] MEDS: ATORVASTATIN 80 MG TAB PO SCH (19:36)
[2023-06-15 19:47] LABS: Glucose,Whole Blood 171 mg/dL (70-110)
[2023-06-15] MEDS: ACETAMINOPHEN IV (For NPO) 1,000 MG in EMPTY BAG 1 BAG IVPB PRN (23:36)
[2023-06-16] MEDS: DEXTROSE 5%-0.9% NACL 1,000 ML IV SCH (03:49)
[2023-06-16 06:11] LABS: Glucose,Whole Blood 175 mg/dL (70-110)
[2023-06-16] MEDS: INSULIN ASPART (NovoLOG) 100 UNIT/ML VIAL SQ SCH ×2 (06:40→12:16)
[2023-06-16] MEDS: hydrALAZINE HCL 20 MG/ML 1 ML VIAL IVP SCH ×2 (06:40→12:25)
[2023-06-16 07:52] LABS: Basophils % (A) 0 %; Eosinophils # (A) 0.2 k/uL (0-0.7); Eosinophils % (A) 2 %; HCT 37.7 % (34.0-46.0); Hypochromasia Slight; Lymphocytes # (A) 0.7 k/uL (1.0-4.8); Lymphocytes % (A) 9 %; MCH 27.2 pg (25.0-35.0); MCHC 31.8 g/dL (31.0-37.0); MCV 85.3 fL (80.0-100.0); Mean Platelet Volume 8.2; Monocytes # (A) 0.6 k/uL (0-1.0); Monocytes % (A) 8 %; Neutrophils # (A) 6.1 k/uL (1.3-7.7); Neutrophils % (A) 79 %; Platelet Count 216 k/uL (150-450); RBC 4.42 m/uL (3.80-5.40); RDW 15.1 % (11.5-15.5); WBC 7.8 k/uL (3.8-10.6)
[2023-06-16 08:14] LABS: African American GFR (CKD) >90 (>60 ml/min/1.73 sqM); Anion Gap 7 mmol/L; Blood Urea Nitrogen 13 mg/dL (7-17); Calcium 8.5 mg/dL (8.4-10.2); Carbon Dioxide 21 mmol/L (22-30); Chloride 112 mmol/L (98-107); Glucose 181 mg/dL (74-99); Non-African American GFR(CKD) 84 (>60 ml/min/1.73 sqM); Potassium 3.4 mmol/L (3.5-5.1); Sodium 140 mmol/L (137-145)
[2023-06-16] MEDS: ASPIRIN 300 MG SUPP RECTAL SCH (09:18)
[2023-06-16] MEDS: LEVOTHYROXINE IVP 100 MCG/5 ML VIAL IV SCH (09:21)
[2023-06-16] MEDS: levETIRAcetam IV 500 MG/5 ML VIAL IVP SCH (09:22)
[2023-06-16] MEDS: FAMOTIDINE 20 MG/2 ML VIAL IV SCH (09:22)
[2023-06-16] MEDS: HEPARIN SODIUM,PORCINE 5,000 UNIT/ML 1 ML VIAL SQ SCH (09:22)
[2023-06-16] MEDS ORDERED: POTASSIUM CHLORIDE 20 MEQ in WATER FOR INJECTION 1 100ML.BAG IVPB STA (09:30)
[2023-06-16] MEDS ORDERED: DEXTROSE 5%-0.45% NACL 1,000 ML IV SCH (09:30)
--- NOTE | 2023-06-16 09:55 | P.PN ---
Subjective Progress Note Date: 06/15/23 06/15/2023: Patient was seen for a follow-up. Patient's web content director was present today. He mentions that patient at baseline (prior to the current stroke) was perfectly coherent, with no issues. At baseline she walks with a walker or a cane and she sometimes drives. Patient had a pacemaker placed 1-1/2 years ago. She was doing quite well after the pacemaker placement. Patient does not have any children. 06/14/2023: Patient was seen for a follow-up. Patient is laying comfortably in the bed. Offers no new complaints. Patient denies headache. She is much more alert and awake. She appears to have expressive aphasia. 06/13/2023:Patient was initially seen by Dr. Jamaal Mitchell. Please refer to his note for details. Patient is a 77-year-old female with right-sided weakness and aphasia. Patient cannot have MRI because of presence of pacemaker. Patient has history of atrial fibrillation, and not on anticoagulation since history of retinal bleed. Patient is currently on aspirin. Patient has asymptomatic right ICA stenosis. Some of the workup during his hospital visit consisted of: Ammonia level is less than 9 B12 is more than 1800 Folate is 9.30 TSH is 1.740 Lipid panel triglycerides 87, cholesterol is 164, LDLs 107 and HDL is 39 Hemoglobin A1c 6.[address] of the head is reported as degenerative and remote ischemic change with the definite of acute hemorrhage or mass effect. On my review, there is probable subacute left hypodensity in the genu of internal capsule. EKG is reported as atrial fibrillation with slow ventricular response. ST and deviation and moderate ST wave abnormality. Consider inferior ischemia. Repeat CT head is reported as correlate for acute ischemic change right cerebellum. Otherwise age-related atrophic and chronic small vessel ischemic changes. I personally reviewed that CT and I do see that there is hypo-density over the cerebellum, however the hypodensity in the left genu of internal capsule is slightly more prominent. Probable subacute ischemic infarct. Carotid duplex was reported as there is marked velocity increase within the right internal carotid artery. A critical stenosis is likely present. Loss of the within the left internal carotid is low. However ventricle flow within critical stenosis can have diminished velocities. Routine EEG is abnormal. The background slowing suggestive of moderate encephalopathy. Otherwise there is no focal slowing, epileptiform discharges or seizure on the EEG. During this recording the heart rate was in the 20s to 40s per the unit aide tech and recommend cardiology consultation. 2D echo is reported as left ventricular is an upper limits of normal with mild global decrease in contractility estimated ejection fraction of 40%. Mild pulmonary hypertension. Mitral annular calcification with mild to moderate ultr a regurgitation. Mild aortic insufficiency. No pericardial effusion. Repeat CT head: It is reported as age-related atrophic and chronic small vessel ischemic changes without acute intracranial process seen at this time. I personally reviewed the CT and I feel the patient has more obvious left Genu internal capsule ischemic stroke that was not seen that obvious on initial CT of the head on 06/07/2023 also feel like patient has had some hypodensity over the left puente radiata. CT angiography of the head and neck was reported as limited CT angiography of the intracranial vasculature given the osseous contamination. Prior visualization of all brach vessel although JACKSON, MCA and GRAIN OPERATIONS MANAGER appear patent. Objective - Vital Signs Vital signs: Vital Signs Temp 98.4 F 06/15/23 08:00 Pulse 65 06/15/23 13:52 Resp 17 06/15/23 12:00 BP 149/68 06/15/23 12:00 Pulse Ox 97 06/15/23 12:00 FiO2 Intake & Output 06/14/23 06/15/23 06/15/23 18:59 06:59 18:59 Intake Total 0 180 Output Total 275 Balance 0 -275 180 Weight 49.9 kg Intake: Oral 0 180 Output: Urine 275 Other: Voiding Method Indwelling Catheter Indwelling Catheter Indwelling Catheter - Exam On examination patient is laying in the bed. She appears worse clinically today. Her head is deviated to the right. She has slight right gaze deviation. On cranial nerve examination pupils are equal, round and reactive to light. She has right facial weakness. Rest of the cranial nerves could not be tested. On muscle strength testing, patient is flaccid in the right upper and right lower extremity. Patient did not cooperate with testing on the left. Please r efer to examination from yesterday when she was more alert and awake. Plantars are probably upgoing. - Labs CBC & Chem 7: 06/16/23 07:32 06/16/23 07:32 Labs: Abnormal Lab Results - Last 24 Hours (Table) 06/14/23 06/15/23 06/15/23 Range/Units 20:15 06:11 11:35 POC Glucose (mg/dL) 162 H 163 H 172 H (70-110) mg/dL 06/15/23 Range/Units 16:20 POC Glucose (mg/dL) 211 H (70-110) mg/dL Assessment and Plan Assessment: This is a 77-year-old woman who presented because of altered mental status appeared unknown last normal state. Probable subacute ischemic stroke manifesting with severe expressive aphasia and right hemiparesis. Right-sided significant hemiparesis including face, aphasia and some confusion due to acute ischemic stroke especially with a history of atrial fibrillation and she is not on any anticoagulation or antiplatelet prior to this. I felt she has subacute stroke involving the genu left internal capusle stroke that is more appreciable compared initial CT. No IV TPA since unknown last normal and the risk outweigh the benefit. History of Atrial fibrillation and is not on any anticoagulation or antiplatelets prior. Seems that the patient was not on any anticoagulation secondary to history of retinal hemorrhage. History of pacemaker placement in 2021 secondary due to sick sinus syndrome Likely critical stenosis is likely present over the right ICA per carotid duplex. This seems asymptomatic since would not explain her acute neurological deficit Episodes of bradycardia during this visit Escalated hypertension History of stroke Diabetes mellitus History of hypertension History of retinal hemorrhage History of sleep apnea on CPAP Plan: Cannot obtain MRI since has pacemaker. Repeat CT head performed today revealed degenerative and remote ischemic change. There is an area of low attenuation in the left temporal lobe measuring 1.4 cm on axial image 27. Recent ischemia in the differential. I personally reviewed CT head and appears multifocal areas of subacute ischemia over the left subcortical region in centrum semiovale. No hemorrhage. Vascular surgery input appreciated. They do not believe right ICA stenosis is symptomatic at this time. They feel that patient does have severe in high-grade stenosis on the right side, which would require intervention in the future. Patient would need long discussion with appropriate family members/POA to evaluate for fitness and planning for surgery. This can be done as an outpat ient. Patient was started on aspirin 300 mg suppository by the primary team. Dr. Mitchell also started the patient on Lipitor 80 mg daily at bedtime for secondary stroke prophylaxis and she'll receive it once she is able to swallow or gets an NG or PEG tube. Patient nothing by mouth at this time. Continue neuro checks. Cardiac monitoring so far showing paced rhythm with bradycardia. Cardiology is consulted by the primary team because of the patient's atrial fibrillation Defer the rest of the medical management to primary team For DVT prophylaxis as are the patient on subcu heparin 5000 units every 12 hours Consider palliative care consultation because of her overall condition. Patient is now no CODE STATUS. Patient being considered for hospice care.
[2023-06-16 11:53] LABS: Glucose,Whole Blood 187 mg/dL (70-110)
[2023-06-16 12:34] VITALS: BP 144/64; PULSE 54; RESP 18; TEMP 98.1
--- NOTE | 2023-06-16 13:23 | P.PN ---
Subjective Progress Note Date: 06/15/23 Principal diagnosis: Right-sided significant hemiparesis including face, aphasia and some confusion due to acute ischemic stroke especially with a history of atrial fibrillation 77 years old female with past medical history of Atrial Fibrillation, Diabetes Mellitus, Hyperlipidemia, Hypertension, Sleep Apnea/CPAP/BIPAP Patient is seen in the emergency room, she was lying in bed awake and looking mainly to the left side When asking the patient any question she answers with her for number for example and ask her about her name, orientation questions or her symptoms are because of presentation she just answered by given her no phone number. She does not follow commands appropriately and it looks that she has increased on on the right side with some flexion deformity. No further information could be obtained from the patient. No family at [facility]. Temperature 97.5, heart rate 50, blood pressure is within the reference range She had mild leukocytosis of 13.3. Rest of CBC is unremarkable. INR is 1.1. Creatinine is elevated at 1.34 which is close to baseline of 1.0-1.2 Liver enzymes not elevated. Ammonia less than 9. Troponin negative. Serum alcohol less than 10. Viruses undetected including influenza and RSV CT of the brain: Degenerative and remote ischemic changes with no definitive acute process Patient is started on normal saline in the emergency room and the neurologist consulted 06/11/2023 Patient is seen and evaluated in room at bedside; patient is more awake and responsive Vital signs are reviewed and remained stable -- Patient has been evaluated by [employer] and is placed on a. Diet - Neurology on board and recommending to continue with aspirin and statin therapy; MRI is recommended but cannot be completed because of pacemaker - Patient has been evaluated by vascular surgery and no intervention for asymptomatic right RCA recommended vitamin patient 06/12/2023 Patient is seen and evaluated in room at bedside; no specific complaints reported Vital signs stable with temperature of 97.7, pulse 59, respiration 15 and blood pressure 169/83 White count 8.9, hemoglobin 13, platelets 240, sodium 138, potassium 3.8, chloride 106, BUN 12, creatinine 0.75, calcium 8.3 -- Patient has been placed on clonidine 0.3 mg patch At this point the patient's overall ischemic changes do not appear to be due to her right internal carotid artery stenosis therefore no acute management however she does have severe and high-grade stenosis which would require intervention. 06/13. Patient seen and examined. WBC 8.6, hemoglobin 12.3, platelet count 225, sodium 139, potassium 4.1, BUN 12, creatinine 0.78 06/14. Patient seen and examined. Patient continues to be confused, not responsive. Family that includes some cousins and friends are trying to apply for guardianship. Discussed with dietitian, will start patient on alternative form of nutrition the form of tube feeds via [employer] REVIEW OF SYSTEMS: Not be obtained as patient is lethargic and confused PHYSICAL EXAMINATION: GENERAL: The patient is lethargic, HEENT: Pupils are round and equally reacting to light. EOMI. No scleral icterus. No conjunctival pallor. Normocephalic, atraumatic. No pharyngeal erythema. No thyromegaly. CARDIOVASCULAR: S1 and S2 present. No murmurs, rubs, or gallops. PULMONARY: Chest is clear to auscultation, no wheezing or crackles. ABDOMEN: Soft, nontender, nondistended, normoactive bowel sounds. No palpable organomegaly. MUSCULOSKELETAL: No joint swelling or deformity. EXTREMITIES: No cyanosis, clubbing, or pedal edema. NEUROLOGICAL: Moves lower extremities to painful stimuli, right upper extremity flaccid does not follow commands SKIN: No rashes. Assessment and plan Right-sided significant hemiparesis including face, aphasia and some confusion due to acute ischemic stroke especially with a history of atrial fibrillation Acute metabolic encephalopathy acute kidney injury Asymptomatic right ICA stenosis CVA Chronic atrial fibrillation with bradycardia on admission, Status post pacemaker, not on AC non adherence to treatment h/o retinal hemorrhage history of seizure on Keppra chronic kidney disease stage III Hypertension, permissive hypertension for 24-48 hours Hyperlipidemia History of sleep apnea Diabetes mellitus Plan: Monitor vital signs Monitor CBC Monitor CMP Continue with a neuro check Continue aspirin, Lipitor Continue with insulin sliding scale Continue Keppra Hold metoprolol given her bradycardia Currently on clonidine patch for blood pressure control Vascular surgery was consulted for the carotid stenosis, they recommend outpatient follow-up, no intervention for asymptomatic right ICA. Social work consulted, working on getting guardianship Discussed with dietitian, start patient on tube feeds via [facility] Neurology following Cardiology following Labs and medication were reviewed.. Continue same treatment. Continue with symptomatic treatment. Resume home medication. Monitor labs and vitals. DVT and GI prophylaxis. Further recommendations as per clinical course of the patient Objective - Vital Signs Vital signs: Vital Signs Temp 98.6 F 06/15/23 16:45 Pulse 98 06/15/23 16:45 Resp 17 06/15/23 16:45 BP 150/67 06/15/23 16:45 Pulse Ox 97 06/15/23 16:45 FiO2 Intake & Output 06/15/23 06/15/23 06/16/23 06:59 18:59 06:59 Intake Total 180 Output Total 275 225 Balance -275 180 -225 Intake: Oral 180 Output: Urine 275 225 Other: Voiding Method Indwelling Catheter Indwelling Catheter - Labs CBC & Chem 7: 06/16/23 07:32 06/16/23 07:32 Labs: Abnormal Lab Results - Last 24 Hours (Table) 06/15/23 06/15/23 06/15/23 Range/Units 06:11 11:35 16:20 POC Glucose (mg/dL) 163 H 172 H 211 H (70-110) mg/dL 06/15/23 Range/Units 19:46 POC Glucose (mg/dL) 171 H (70-110) mg/dL
[2023-06-16] MEDS: ACETAMINOPHEN IV (For NPO) 1,000 MG in EMPTY BAG 1 BAG IVPB PRN (13:47)
== END 2023-06-16 16:07 | disposition hospice, inpatient (51) | DRG 64 ==
LOC: EC 10:15 → 6NMEDSUR 15:01 → OBSVTOIN 06-08 19:38 → 3SCARD 06-08 23:51
PROVIDERS: ADMIT Internal Medicine; ATTEND Internal Medicine
PROC: 0DH67UZ Insertion of Feeding Device into Stomach, Via Natural or Artificial Opening (ICD-10-PCS; principal; 2023-06-14)
PROC: 3E0G76Z Introduction of Nutritional Substance into Upper GI, Via Natural or Artificial Opening (ICD-10-PCS; principal; 2023-06-14)
PROC: 05HY33Z Insertion of Infusion Device into Upper Vein, Percutaneous Approach (ICD-10-PCS; 2023-06-15)
DX: I63.9 Cerebral infarction, unspecified (principal); G93.41 Metabolic encephalopathy; N17.9 Acute kidney failure, unspecified; I48.19 Other persistent atrial fibrillation; I47.20 Ventricular tachycardia, unspecified; G81.91 Hemiplegia, unspecified affecting right dominant side; I27.20 Pulmonary hypertension, unspecified; R47.01 Aphasia; I49.5 Sick sinus syndrome; E11.22 Type 2 diabetes mellitus with diabetic chronic kidney disease; G40.909 Epilepsy, unspecified, not intractable, without status epilepticus; R29.725 NIHSS score 25; N18.30 Chronic kidney disease, stage 3 unspecified; Z66 Do not resuscitate; Z51.5 Encounter for palliative care; Z11.52 Encounter for screening for COVID-19; E86.0 Dehydration; I12.9 Hypertensive chronic kidney disease with stage 1 through stage 4 chronic kidney disease, or unspecified chronic kidney disease; E78.5 Hyperlipidemia, unspecified; G47.33 Obstructive sleep apnea (adult) (pediatric); I34.81 Nonrheumatic mitral (valve) annulus calcification; I65.21 Occlusion and stenosis of right carotid artery; R79.89 Other specified abnormal findings of blood chemistry; Z79.84 Long term (current) use of oral hypoglycemic drugs; Z79.890 Hormone replacement therapy; Z79.899 Other long term (current) drug therapy; Z86.73 Personal history of transient ischemic attack (TIA), and cerebral infarction without residual deficits; Z95.0 Presence of cardiac pacemaker; Z71.3 Dietary counseling and surveillance; Z88.0 Allergy status to penicillin; Z88.2 Allergy status to sulfonamides; Z88.1 Allergy status to other antibiotic agents; Z88.5 Allergy status to narcotic agent
CPT/HCPCS: 36415; 70450; 70496; 70498; 71045; 71046; 80048; 80053; 80061; 80306; 80320; 81001; 82140; 82607; 82746; 83036; 83735; 84443; 84484; 85025; 85610; 85730; 87636; 93005; 93306; 93880; 95816; 96361; 96374; 96375; 96376; 99285